=== PATIENT | male | born 1965 | race African-American/Black ===

== ENCOUNTER 2016-11-26 17:35 | Inpatient (IN) ==
--- NOTE | 2016-11-26 20:48 | Hospitalist History & Physical ---
Assessment and Plan - Time spent with patient Time spent with patient: Greater than 30 minutes (1) CHF with left ventricular diastolic dysfunction, NYHA class 2 Status: Acute Assessment and plan: The patient is admitted hospital with hypertensive emergency. He will be restarted on oral regimen and we will use Cardene infusion to control blood pressure presently. We will diurese with intravenous Lasix and obtain nephrology consultation concerning proteinuria. 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 Duvall today with complaint of swelling. The patient has been out of blood pressure medication. The patient usually takes valsartan hydrochlorothiazide. The patient's swelling was moderate to severe, continuous , and worsening. It was associated with shortness of breath and cough. The symptom was not associated with fever, chills, angina, palpitations. A complete 10 system review is obtained all systems not mentioned in history of present illness were negative. The patient is an occasional smoker and was given 4 minutes tobacco cessation advice. The patient was accepted for direct admission after speaking with emergency room physician at [facility]. Medical,Surgical,& Family Hx - Medical History Cardio: History of: CHF, Hypertension - Family History Family History: Reports;: Family Hypertension - Social History Smoking Status: Current some day smoker Have you smoked in the last 12 months: Yes Time spent discussing smoking cessation with patient: 3 to 10 minutes Marital Status: Single Lives With:: Alone Functional capacity: independent ambulation 12 point system: reviewed and no additional remarkable complaints except as stated Exam - Constitutional Exam: Constitutional System: Mild distress. No tremulousness. The patient is disheveled and unkempt. The patient has anasarca. Head: Normocephalic, atraumatic. Ears, Nose and Throat System: No evidence of Otitis or Mastoiditis. No epistaxis or discharge Eyes System: Pupils equal, round, and reactive. Extraocular muscles intact. Neck: Supple, without adenopathy, 1+ jugular venous distention. No thyromegaly , neck mass, or prior surgery apparent. Respiratory System: Chest rales one third up back to auscultation. Cardiovascular System: Heart with regular rate and rhythm. S4 murmur. GI System: Abdomen soft, nontender, protuberant. Normo active bowel sounds present. Musculoskeletal System: limbs with 2+ pedal edema. Full distal pulses. Neurological System: No discernable sensory deficit. No aphasia Psychiatric System: Conversation is rational Results - Labs Lab Results: I have reviewed the past 24 hour labs Labs: Urinalysis obtained at [facility] shows specific gravity 1.010 and urine protein greater than 500. Patient's sodium is 144 potassium 3.9 chloride 107 CO2 of 26 BUN 34, creatinine 4.4. Chest x-ray obtained at [facility] shows cardiomegaly and pulmonary edema.
[2016-11-26] MEDS ORDERED: ZALEPLON 5 MG CAPSULE PO PRN (20:53)
[2016-11-26] MEDS ORDERED: SODIUM CHLORIDE 0.9% 1,000 ML IV SCH (21:00)
[2016-11-26] MEDS: ENOXAPARIN 30 MG/0.3 ML SYRINGE SUBCUT SCH (21:27)
[2016-11-26] MEDS: CARVEDILOL 12.5 MG TABLET PO SCH (21:27)
[2016-11-26] MEDS: niCARdipine INJ 25 MG in SODIUM CHLORIDE 0.9% 240 ML IV SCH (21:27)
[2016-11-26] MEDS: amLODIPine 10 MG TABLET PO SCH (21:27)
[2016-11-26] MEDS: FUROSEMIDE INJ 160 MG in SODIUM CHLORIDE 0.9% 50 ML IV SCH (23:17)
[2016-11-26 23:36] LABS: Apearance,Urine Slightly Hazy (Clear); Bacteria,Urine Occasional /HPF (Few); Bilirubin,Urine Negative (Negative); Blood, Urine Negative (Negative); Glucose,Urine (UA) Negative (Negative); Ketones,Urine Negative (Negative); Mucus,Urine Occasional /LPF (Occasional); Nitrite,Urine Negative (Negative); Protein,Urine 100 MG/DL; RBC,Urine <1 /HPF (0-4); Squamous Epithelial Cell,Urine Occasional /HPF (0-10); Urine Color Straw (Yellow); Urine Specific Gravity 1.005 (1.001-1.035); Urine Urobilinogen < 2.0 EU/DL (0.2-1.0); WBC,Urine 1 /HPF (0-6)
[2016-11-27 04:51] LABS: Basophils # 0.1 10*3/uL (0.0-0.2); Basophils % 0.8 % (0.0-0.8); Eosinophils # 0.2 10*3/uL (0.0-0.87); Eosinophils % 2.1 % (0.00-10.9); Hematocrit 37.5 VOL% (42.0-52.0); Hemoglobin 11.3 GM/DL (14.0-18.0); Immature Granulocytes % 0.4 %; Immature Granulocytes Absolute 0.03 #; Lymphocytes # 1.1 10*3/uL (1.4-4.0); Lymphocytes % 13.9 % (21.2-54.2); Mean Corpuscular HGB Conc 30.1 GM/DL (32-36); Mean Corpuscular Hemoglobin 26 PG (27-34); Mean Corpuscular Volume 85.2 FL (87-102); Mean Platelet Volume 10.8 FL (9.6-12.0); Monocytes # 0.9 10*3/uL (0.11-0.8); Monocytes % 12.2 % (1.7-12.7); Neutrophils # 5.4 10*3/uL (1.4-7.4); Neutrophils % 70.6 % (38.7-73.9); Platelet Count 165 T/CUMM (130-400); White Blood Count 7.7 T/CUMM (4-12)
[2016-11-27 05:24] LABS: Calcium 8.6 MG/DL (8.5-10.1); Magnesium 2.3 MG/DL (1.8-2.4); Potassium 3.7 MMOL/L (3.5-5.1)
[2016-11-27 05:25] LABS: Troponin I Only 0.085 NG/ML (0.00-0.045)
[2016-11-27 05:46] LABS: Risk Ratio 3.79; Thyroid Stimulating Hormone 0.9 uIU/ml (0.358-3.74)
[2016-11-27] MEDS: CARVEDILOL 12.5 MG TABLET PO SCH ×2 (09:20→20:54)
[2016-11-27] MEDS: amLODIPine 10 MG TABLET PO SCH (09:20)
[2016-11-27] MEDS: PANTOPRAZOLE 40 MG TABLET PO SCH (09:20)
[2016-11-27] MEDS: niCARdipine INJ 25 MG in SODIUM CHLORIDE 0.9% 240 ML IV SCH (10:54)
[2016-11-27] MEDS: FUROSEMIDE INJ 160 MG in SODIUM CHLORIDE 0.9% 50 ML IV SCH ×2 (10:54→17:16)
[2016-11-27 11:26] LABS: Collection Time,Urine 12 HOURS
[2016-11-27] MEDS: ALLOPURINOL 100 MG TABLET PO SCH (12:08)
[2016-11-27 12:24] LABS: Total Protein 12 Hr Ur Result 3660 MG/12HR (0-75)
--- NOTE | 2016-11-27 13:09 | Hospitalist Progress Note ---
Assessment and Plan (1) CHF with left ventricular diastolic dysfunction, NYHA class 2 Status: Acute Assessment and plan: The patient is admitted hospital with hypertensive emergency. We will make transition to oral antihypertensive regimen today and titrate medications daily to achieve survival level pressure control. Current Visit: Yes (2) Nephrotic range proteinuria Status: Acute Current Visit: Yes (3) Hypertensive emergency Status: Acute Current Visit: Yes Hospitalist: Subjective Interval history: Mr. Melgar had hypertension through the night which improved on Cardene. We were able to get a list of his home medications which is extensive and shows that he has severe hypertension. The patient has been off blood pressure medications for at least a couple of months and it is prudent to bring the blood pressure into compliance in a stepwise fashion. I am going to discontinue Cardene and began adding progressive doses of oral antihypertensive until the blood pressure is controlled to a survival level. The patient's renal function is marginal and normalizing blood pressure suddenly will jeopardize glomerular filtration rate. The patient feels better after diuresis of 3 L. Follow-up urinalysis shows less proteinuria. Exam - Constitutional Vitals: Period Temp Pulse Resp BP Sys/Potter Pulse Ox Last 24 Hr 98.0 F-98.9 F 62-76 20-22 124-200/56-110 94-98 Exam: Constitutional System: Minimal distress. No tremulousness. The patient is disheveled and unkempt. The patient has less swelling. Head: Normocephalic, atraumatic. Ears, Nose and Throat System: No evidence of Otitis or Mastoiditis. No epistaxis or discharge Eyes System: Pupils equal, round, and reactive. Extraocular muscles intact. Neck: Supple, without adenopathy, 1+ jugular venous distention. No thyromegaly , neck mass, or prior surgery apparent. Respiratory System: Chest rales in bases to auscultation. Cardiovascular System: Heart with regular rate and rhythm. S4 murmur. GI System: Abdomen soft, nontender, protuberant. Normo active bowel sounds present. Musculoskeletal System: limbs with 1 + pedal edema. Full distal pulses. Neurological System: No discernable sensory deficit. No aphasia Psychiatric System: Conversation is rational Results - Labs CBC & BMP: 11/27/16 04:31 11/27/16 04:31 Lab Results: I have reviewed the past 24 hour labs
--- NOTE | 2016-11-27 14:36 | Nephrology Consult Note ---
History of Present Illness Chief complaint: Increased BUN and creatinine History of present illness: Mr. Melgar is a 51 year old male admitted for swelling and shortness of breath. The patient states he developed a cold a few weeks ago and was taking a lot of [place] and cold medicines and during this time began to retain a lot of fluid and swell. The patient has had some shortness of breath associated with this. He is also had a cough productive of yellowish sputum. The patient reports paroxysmal nocturnal dyspnea however he states he has had this for years. The patient states he had been in the hospital a few years ago with similar symptoms and fluid retention. Since being in the hospital the patient has been getting IV Lasix and he states his legs have gone down in their amount of swelling since admission. We were asked see the patient for proteinuria and increased BUN and creatinine. The patient states he has been told of kidney failure problems in the past by his local doctor and reports having seen a kidney doctor a few years ago as well. Indeed the patient was seen about [address] Galvez and about 4 years ago the patient had a creatinine of around 2.3 mg/dL done in our office. ROS: Head - denies headaches ENT - denies sore throat Lymphatics - denies lymphadenopathy Hematology - denies bleeding problems Heart - denies chest pain Lungs -positive shortness of breath Abdomen - denies abdominal pain Musculoskeletal - denies arthritis Skin -complains of some rash on his right leg Neurology - denies stroke General - denies fever PE: General: in no acute distress Eyes: Pupils are round and reactive, conjunctivae are clear ENT: Nose is clear, O/P is benign Neck: Supple, no thyromegaly Lymphatics: No cervical, supraclavicular or axillary adenopathy Heart: Regular rate and rhythm, 2+ pretibial edema Lungs: Clear to auscultation anteriorly, chest expansion symmetric Abdomen: Soft, normoactive bowel sounds, no hepatomegaly Musculoskeletal: No joint erythema or effusions or joint asymmetry Skin: Normal turgor, normal hydration, no rash Neuro/Psych: Alert and cooperative with fair insight Home Medications Medication Instructions Recorded Confirmed Type Allopurinol 100 mg PO DAILY 11/27/16 11/27/16 History Furosemide Tab [Lasix Tab] 80 mg PO DAILY 11/27/16 11/27/16 History Metoprolol Succinate Xl [Toprol Xl] 200 mg PO DAILY 11/27/16 11/27/16 History Potassium Chloride Cap/Tab [K Dur] 20 meq PO DAILY 11/27/16 11/27/16 History Valsartan [Diovan] 320 mg PO DAILY 11/27/16 11/27/16 History cloNIDine TAB [Catapres Tab] 0.3 mg PO TID 11/27/16 11/27/16 History dilTIAZem HCl [Cardizem LA] 180 mg PO DAILY 11/27/16 11/27/16 History hydrALAZINE TAB [Apresoline Tab] 100 mg PO TID 11/27/16 11/27/16 History Allergies Allergy/AdvReac Type Severity Reaction Status Date / Time No Known Allergies Allergy Verified 11/26/16 21:11 Medical,Surgical,& Family Hx - Medical History Cardio: History of: CHF, Hypertension No history of: Aneurysm, Cardiac Dysrhythmia, Cerebrovascular Disease, Congenital Heart Disease, CAD, MA, Pacemaker, PVD, Valvular Heart Disease Neurology: No history of: Brain Aneurysm, Cerebral Hemorrhage, Cerebrovascular Accident , Cerebral Palsy, Dementia, Migraine, Multiple Sclerosis, Parkinson's Disease, Peripheral Neuropathy, Seizures, TIA, Vertigo, Neurologocal Cancer Endocrine: No history of: Dyslipidemia Respiratory: No history of: Asthma, Bronchitis, COPD, Intubation, Pulmonary Embolism, Pneumonia, Lung Cancer Gastrointestinal: No history of: Bowel Obstruction, Clostridium Difficile, Crohn's Disease, Diverticulitis/ Diverticulosis, Esophageal Varices, GERD, Gastrointestinal Bleed , Hemorrhoids, Hematochezia, Hepatitis, Liver Problems, Pancreatitis, Polyps, Ulcerative Colitis, Gastrointestinal Cancer, GI Problems - Surgical History Cardiac Surgeries: Patient Denies: Femoral-Popliteal Bypass Graft, Cardiac Catheterization, Cardiac Surgery, Carotid Endarterectomy, Internal Defibrillator Thoracic Surgeries: Patient denies;: Lobectomy Neurologic Surgeries: Patient denies: Brain Aneurysm, Cerebral Hemorrhage, Neurologic Surgery HEENT Surgeries: Patient denies: Carotid Endarterectomy Abdominal Surgeries: Patient denies: Abdominal Surgery, Appendectomy, Cholecystectomy, Colonoscopy , Gastric Bypass Surgery, EGD, Hernia Repair, Splenectomy - Family History Family History: Reports;: Family Diabetes, Family Hypertension Additional Family History: His father was on dialysis - Social History Smoking Status: Never smoker Frequency of Alcohol Use: None Exam - Vital Signs Vital signs: Period Temp Pulse Resp BP Sys/Potter Pulse Ox Last 24 Hr 98.0 F-98.9 F 62-76 20-22 124-200/56-110 94-98 Results - Labs CBC & BMP: 11/27/16 04:31 11/27/16 04:31 Assessment and Plan (1) Hypertension Status: Acute Current Visit: Yes (2) Chronic kidney disease, stage IV (severe) Status: Acute Assessment and plan: I suspect this patient has chronic kidney disease related to long-standing hypertension, patient's creatinine about 4 years ago was 2.3 mg/dL it is now 4.7 mg/dL we will continue to monitor this. We will check a urinalysis and a spot urine albumin to creatinine ratio. Current Visit: Yes (3) Volume overload Status: Acute Assessment and plan: I agree with the diuretic regimen he is presently on Current Visit: Yes (4) Obesity Status: Acute Current Visit: Yes (5) Proteinuria Status: Acute Current Visit: Yes
--- NOTE | 2016-11-27 16:13 | ECHO Report ---
Jose Melgar Exam Date: 11/27/2016 13:32 Referring Physician: Technologist: Age: 51 Ht (in): 65 Wt (lb): 306 Gender: M Exam Location: [facility] Echo Indications: CHF, HTN, resp. distress BP: 157 / 83 HR: 71 Rhythm: Sinus Technical Quality: IMPRESSIONS 1-2+ left atrial enlargement with borderline right ventricular enlargement 2-3+ concentric LVH Normal LV systolic function with ejection fraction estimated to be 65% without segmental wall motion abnormality 1+ aortic stenosis (peak gradient 23 mmHg), with 1+ aortic regurgitation 1+ mitral and 2+ tricuspid regurgitation with RVSP 46 mmHg plus RAP MEASUREMENTS (Male / Female) Normal Values 2D ECHO LV Diastolic Diameter PLAX 4.0 cm 4.2 - 5.9 / 3.9 - 5.3 cm LV Systolic Diameter PLAX 2.0 cm LV Fractional Shortening PLAX 50.2 % IVS Diastolic Thickness 1.6 cm 0.6 - 1.0 / 0.6 - 0.9 cm LVPW Diastolic Thickness 1.6 cm 0.6 - 1.0 / 0.6 - 0.9 cm Aortic Root Diameter 2.5 cm LA Systolic Diameter LX 4.7 cm 3.0 - 4.0 / 2.7 - 3.8 cm DOPPLER TR Peak Velocity 339.0 cm/s TR Peak Gradient 46.0 mmHg FINDINGS Left Ventricle Moderately increased septal wall thickness. Moderate concentric left ventricular hypertrophy with diastolic dysfunction. Left ventricular ejection fraction is estimated at 55-60 %. Right Ventricle Mild - moderately increased right ventricular size. Right Atrium The right atrium is mild - moderately enlarged. Left Atrium Moderately increased left atrial diameter. Mitral Valve Mildly thickened mitral valve with mild mitral regurgitation. Aortic Valve Mild aortic valve sclerosis without stenosis. Trace aortic valve regurgitation. Tricuspid Valve Morphologically normal tricuspid valve. Trace to mild tricuspid valve regurgitation. Tricuspid regurgitation velocities suggest a PAP of 46.0 mmHg + RAP. Pulmonic Valve Morphologically normal pulmonic valve. Pericardium No pericardial effusion. Aorta Normal size aortic root and proximal ascending aorta. Henrique Quinones (Electronically Signed) Final Date: 27 November 2016 16:12
[2016-11-27] MEDS: hydrALAZINE 10 MG TABLET PO PRN (20:54)
[2016-11-27] MEDS: ENOXAPARIN 30 MG/0.3 ML SYRINGE SUBCUT SCH (20:55)
[2016-11-28] MEDS: hydrALAZINE 10 MG TABLET PO PRN ×2 (04:05→17:11)
[2016-11-28 05:28] LABS: Calcium 8.3 MG/DL (8.5-10.1); Magnesium 2.3 MG/DL (1.8-2.4); Osmolality,Calculated 289.3 MOS/KG (273-304); Potassium 3.4 MMOL/L (3.5-5.1)
[2016-11-28] MEDS: CARVEDILOL 25 MG TABLET PO SCH ×2 (08:22→20:31)
[2016-11-28] MEDS: VALSARTAN 160 MG TABLET PO SCH (08:22)
[2016-11-28] MEDS: PANTOPRAZOLE 40 MG TABLET PO SCH (08:23)
[2016-11-28] MEDS: FUROSEMIDE INJ 160 MG in SODIUM CHLORIDE 0.9% 50 ML IV SCH ×3 (08:23→20:31)
[2016-11-28] MEDS: amLODIPine 10 MG TABLET PO SCH (08:23)
[2016-11-28] MEDS: ALLOPURINOL 100 MG TABLET PO SCH (08:23)
--- NOTE | 2016-11-28 10:14 | Nephrology Progress Note ---
Nephrology - PN: Subj Interval history: Patient denies shortness of breath. Review of systems GI denies nausea or vomiting Physical exam general the patient chronically ill-appearing, he continues with 2 + pretibial edema Assessment/plan 1. Chronic kidney disease stage IV-patient's creatinine is stable at 4.6 mg/dL 2. Hypertension-we will continue as needed Procardia and his present antihypertensive regimen 3. Volume overload-I am going to increase his Lasix to 160 3 times daily 4. Proteinuria will follow up a spot urine microalbumin to creatinine ratio Exam (PN)-Nephrology - Vital Signs Vital signs: Period Temp Pulse Resp BP Sys/Potter Pulse Ox Last 24 Hr 98.0 F-98.9 F 70-76 18-22 164-227/91-130 91-98 - Lab 11/27/16 04:31 11/28/16 04:07 Most recent lab results Calcium 8.3 MG/DL (8.5-10.1) L 11/28/16 04:07 Magnesium 2.3 MG/DL (1.8-2.4) 11/28/16 04:07 Assessment and Plan (1) Hypertension Status: Acute Current Visit: Yes (2) Chronic kidney disease, stage IV (severe) Status: Acute Assessment and plan: I suspect this patient has chronic kidney disease related to long-standing hypertension, patient's creatinine about 4 years ago was 2.3 mg/dL it is now 4.7 mg/dL we will continue to monitor this. We will check a urinalysis and a spot urine albumin to creatinine ratio. Current Visit: Yes (3) Volume overload Status: Acute Assessment and plan: I agree with the diuretic regimen he is presently on Current Visit: Yes (4) Obesity Status: Acute Current Visit: Yes (5) Proteinuria Status: Acute Current Visit: Yes
[2016-11-28] MEDS: NIFEdipine 10 MG CAPSULE PO PRN ×2 (11:18→20:31)
--- NOTE | 2016-11-28 11:39 | Hospitalist Progress Note ---
Assessment and Plan (1) CHF with left ventricular diastolic dysfunction, NYHA class 2 Status: Acute Assessment and plan: The patient is admitted hospital with hypertensive emergency. I am going to continue with oral medications adding valsartan and hydralazine today. Dr. Ingram increase the Lasix dose as well. Will recheck kidney function tomorrow. Current Visit: Yes (2) Nephrotic range proteinuria Status: Acute Current Visit: Yes (3) Hypertensive emergency Status: Acute Current Visit: Yes Hospitalist: Subjective Interval history: Mr. Melgar has less shortness of breath each day. Swelling of lower extremities is improving. Blood pressure is still elevated at 227/114. The patient has no angina. Exam - Constitutional Vitals: Period Temp Pulse Resp BP Sys/Potter Pulse Ox Last 24 Hr 98.0 F-98.9 F 70-76 18-22 164-227/91-130 91-98 Exam: Constitutional System: Minimal distress. No tremulousness. The patient is disheveled and unkempt. The patient has less swelling. Head: Normocephalic, atraumatic. Ears, Nose and Throat System: No evidence of Otitis or Mastoiditis. No epistaxis or discharge Eyes System: Pupils equal, round, and reactive. Extraocular muscles intact. Neck: Supple, without adenopathy, 1+ jugular venous distention. No thyromegaly , neck mass, or prior surgery apparent. Respiratory System: Chest rales in bases to auscultation. Cardiovascular System: Heart with regular rate and rhythm. S4 murmur. GI System: Abdomen soft, nontender, protuberant. Normo active bowel sounds present. Musculoskeletal System: limbs with 1 + pedal edema. Full distal pulses. Neurological System: No discernable sensory deficit. No aphasia Psychiatric System: Conversation is rational Results - Labs CBC & BMP: 11/27/16 04:31 11/28/16 04:07 Lab Results: I have reviewed the past 24 hour labs
[2016-11-28 18:30] LABS: Apearance,Urine CLEAR (Clear); Bilirubin,Urine Negative (Negative); Blood, Urine Small mg/dL (Negative); Glucose,Urine (UA) Negative (Negative); Ketones,Urine Negative (Negative); Mucus,Urine Occasional /LPF (Occasional); Nitrite,Urine Negative (Negative); Protein,Urine 100 MG/DL; RBC,Urine 1 /HPF (0-4); Urine Color Straw (Yellow); Urine Specific Gravity 1.005 (1.001-1.035); Urine Urobilinogen < 2.0 EU/DL (0.2-1.0); WBC,Urine <1 /HPF (0-6)
[2016-11-28] MEDS: POTASSIUM CHLORIDE 20 MEQ TABLET PO SCH (20:30)
[2016-11-28] MEDS: ENOXAPARIN 30 MG/0.3 ML SYRINGE SUBCUT SCH (20:47)
[2016-11-28] MEDS: niCARdipine INJ 25 MG in SODIUM CHLORIDE 0.9% 240 ML IV SCH (23:48)
[2016-11-29] MEDS: niCARdipine INJ 25 MG in SODIUM CHLORIDE 0.9% 240 ML IV SCH (04:45)
[2016-11-29 05:01] LABS: Calcium 8.1 MG/DL (8.5-10.1); Magnesium 2.3 MG/DL (1.8-2.4); Osmolality,Calculated 291.3 MOS/KG (273-304); Potassium 3.1 MMOL/L (3.5-5.1)
[2016-11-29] MEDS ORDERED: guaiFENesin 200 MG/10 ML UDCUP PO PRN (05:03)
[2016-11-29] MEDS: POTASSIUM CHLORIDE 20 MEQ TABLET PO SCH ×5 (08:06→20:59)
[2016-11-29] MEDS: MINOXIDIL 2.5 MG TABLET PO SCH (09:02)
[2016-11-29] MEDS: PANTOPRAZOLE 40 MG TABLET PO SCH (09:02)
[2016-11-29] MEDS: ALLOPURINOL 100 MG TABLET PO SCH (09:03)
[2016-11-29] MEDS: VALSARTAN 160 MG TABLET PO SCH (09:04)
[2016-11-29] MEDS: CARVEDILOL 25 MG TABLET PO SCH ×2 (09:04→20:59)
[2016-11-29] MEDS: amLODIPine 10 MG TABLET PO SCH (09:04)
[2016-11-29] MEDS: FUROSEMIDE INJ 160 MG in SODIUM CHLORIDE 0.9% 50 ML IV SCH ×3 (09:06→21:00)
--- NOTE | 2016-11-29 10:01 | Nephrology Progress Note ---
Nephrology - PN: Subj Interval history: Patient states he slept better last night that he has not some time. He was able to lay flatter than he usually does. Review of systems-musculoskeletal: Patient reports ambulating better than he has been sometime since getting some of the fluid off during this hospitalization. Physical exam general the patient is chronically ill-appearing, he has 2+ pretibial edema, however his legs do seem to little bit softer today. Assessment/plan 1. Volume overload-patient is responding well to the Lasix 2. Hypertension-patient's been started on minoxidil, I am going to give him a as needed of IV labetalol, I wonder if this patient has some bowel wall edema that is impairing his ability to absorb some of his medications resulting in some rebound hypertension related to lack of beta blockade 3. Chronic kidney disease stage IV-this patient's creatinine is remaining stable around 4.6 mg/dL, 4 years ago he had a creatinine of 2.4 mg/dL, he does have a significant amount of proteinuria as reflected by spot albumin to creatinine ratio equivalent to about 5 g of albumin leakage per day however with his prolonged course of kidney disease and bland urinary sediment I am disinclined to investigate or treat aggressively at this time. I may revisit this down the road as the patient improves. Patient was discussed with Dr. Tsang today. Exam (PN)-Nephrology - Vital Signs Vital signs: Period Temp Pulse Resp BP Sys/Potter Pulse Ox Last 24 Hr 97.3 F-98.4 F 74-84 18-20 160-230/79-140 92-97 - Lab 11/27/16 04:31 11/29/16 03:29 Most recent lab results Calcium 8.1 MG/DL (8.5-10.1) L 11/29/16 03:29 Magnesium 2.3 MG/DL (1.8-2.4) 11/29/16 03:29 Assessment and Plan (1) Hypertension Status: Acute Current Visit: Yes (2) Chronic kidney disease, stage IV (severe) Status: Acute Assessment and plan: I suspect this patient has chronic kidney disease related to long-standing hypertension, patient's creatinine about 4 years ago was 2.3 mg/dL it is now 4.7 mg/dL we will continue to monitor this. We will check a urinalysis and a spot urine albumin to creatinine ratio. Current Visit: Yes (3) Volume overload Status: Acute Assessment and plan: I agree with the diuretic regimen he is presently on Current Visit: Yes (4) Obesity Status: Acute Current Visit: Yes (5) Proteinuria Status: Acute Current Visit: Yes
--- NOTE | 2016-11-29 11:09 | Hospitalist Progress Note ---
Assessment and Plan (1) CHF with left ventricular diastolic dysfunction, NYHA class 2 Status: Acute Assessment and plan: The patient is admitted hospital with hypertensive emergency. I am going to continue with oral medications adding Loniten today and reducing the oral hydralazine dose. Dr. Ingram increase the Lasix dose as well. Will recheck kidney function tomorrow. The patient has 6 grams of protein per 24 hours urinary loss. Current Visit: Yes (2) Nephrotic range proteinuria Status: Acute Current Visit: Yes (3) Hypertensive emergency Status: Acute Current Visit: Yes Hospitalist: Subjective Interval history: Mr. Melagr has a little less swelling each day. Blood pressure control is still marginal and I discussed medication changes with Dr. Ingram today we coordinated care. The patient does not complain of shortness of breath or angina today. Exam - Constitutional Vitals: Period Temp Pulse Resp BP Sys/Potter Pulse Ox Last 24 Hr 97.3 F-98.4 F 74-84 18-20 160-230/79-140 92-97 Exam: Constitutional System: Minimal distress. No tremulousness. The patient is disheveled and unkempt. The patient has less swelling. Head: Normocephalic, atraumatic. Ears, Nose and Throat System: No evidence of Otitis or Mastoiditis. No epistaxis or discharge Eyes System: Pupils equal, round, and reactive. Extraocular muscles intact. Neck: Supple, without adenopathy, 1+ jugular venous distention. No thyromegaly , neck mass, or prior surgery apparent. Respiratory System: Chest rales in bases to auscultation. Cardiovascular System: Heart with regular rate and rhythm. S4 murmur. GI System: Abdomen soft, nontender, protuberant. Normo active bowel sounds present. Musculoskeletal System: limbs with 1 + pedal edema. Full distal pulses. Neurological System: No discernable sensory deficit. No aphasia Psychiatric System: Conversation is rational Results - Labs CBC & BMP: 11/27/16 04:31 11/29/16 03:29 Lab Results: I have reviewed the past 24 hour labs
[2016-11-29] MEDS: LABETALOL 20 MG/4 ML SYRINGE IV PRN ×2 (11:14→18:14)
[2016-11-29] MEDS ORDERED: LABETALOL 20 MG/4 ML SYRINGE IV SCH (12:00)
[2016-11-29] MEDS: hydrALAZINE 10 MG TABLET PO PRN (16:29)
[2016-11-29] MEDS: ENOXAPARIN 30 MG/0.3 ML SYRINGE SUBCUT SCH (21:01)
[2016-11-30] MEDS: LABETALOL 20 MG/4 ML SYRINGE IV PRN (00:19)
[2016-11-30 05:45] LABS: Calcium 8.1 MG/DL (8.5-10.1); Magnesium 2.2 MG/DL (1.8-2.4); Osmolality,Calculated 288.5 MOS/KG (273-304); Potassium 3.4 MMOL/L (3.5-5.1)
[2016-11-30] MEDS: MINOXIDIL 2.5 MG TABLET PO SCH (08:41)
[2016-11-30] MEDS: VALSARTAN 160 MG TABLET PO SCH (08:41)
[2016-11-30] MEDS: POTASSIUM CHLORIDE 20 MEQ TABLET PO SCH ×2 (08:42→20:35)
[2016-11-30] MEDS: CARVEDILOL 25 MG TABLET PO SCH ×2 (08:42→20:36)
[2016-11-30] MEDS: ALLOPURINOL 100 MG TABLET PO SCH (08:42)
[2016-11-30] MEDS: PANTOPRAZOLE 40 MG TABLET PO SCH (08:42)
[2016-11-30] MEDS: amLODIPine 10 MG TABLET PO SCH (08:44)
[2016-11-30] MEDS: FUROSEMIDE INJ 160 MG in SODIUM CHLORIDE 0.9% 50 ML IV SCH ×3 (09:58→20:34)
[2016-11-30] MEDS: NIFEdipine 10 MG CAPSULE PO PRN (11:05)
--- NOTE | 2016-11-30 13:57 | Nephrology Progress Note ---
Nephrology - PN: Subj Interval history: Patient reports breathing better. Review of systems GI denies nausea vomiting Physical exam general the patient's in no acute distress, he has 2+ pretibial edema Assessment/plan 1. Chronic kidney disease stage IV-patient's creatinine stable at 4.6 mg/dL 2. Hypertension-patient's blood pressure seems to be trending down some with the addition of minoxidil and IV labetalol 3. Proteinuria-patient has about 5-6 g protein leakage per day, he is on angiotensin receptor hedy presently. Exam (PN)-Nephrology - Vital Signs Vital signs: Period Temp Pulse Resp BP Sys/Potter Pulse Ox Last 24 Hr 97.6 F-99.7 F 75-82 18-20 145-218/96-125 94-95 - Lab 11/27/16 04:31 11/30/16 04:14 Most recent lab results Calcium 8.1 MG/DL (8.5-10.1) L 11/30/16 04:14 Magnesium 2.2 MG/DL (1.8-2.4) 11/30/16 04:14 Assessment and Plan (1) Hypertension Status: Acute Current Visit: Yes (2) Chronic kidney disease, stage IV (severe) Status: Acute Assessment and plan: I suspect this patient has chronic kidney disease related to long-standing hypertension, patient's creatinine about 4 years ago was 2.3 mg/dL it is now 4.7 mg/dL we will continue to monitor this. We will check a urinalysis and a spot urine albumin to creatinine ratio. Current Visit: Yes (3) Volume overload Status: Acute Assessment and plan: I agree with the diuretic regimen he is presently on Current Visit: Yes (4) Obesity Status: Acute Current Visit: Yes (5) Proteinuria Status: Acute Current Visit: Yes
--- NOTE | 2016-11-30 15:15 | Hospitalist Progress Note ---
Assessment and Plan (1) Nephrotic range proteinuria Status: Acute Assessment and plan: Continue Lasix. Dr. Ingram's notes were reviewed and his help is appreciated. Current Visit: Yes (2) CHF with left ventricular diastolic dysfunction, NYHA class 2 Status: Acute Assessment and plan: Echo report shows : 1-2+ left atrial enlargement with borderline right ventricular enlargement 2-3+ concentric LVH Normal LV systolic function with ejection fraction estimated to be 65% without segmental wall motion abnormality 1+ aortic stenosis (peak gradient 23 mmHg), with 1+ aortic regurgitation 1+ mitral and 2+ tricuspid regurgitation with RVSP 46 mmHg plus RAP Current Visit: Yes (3) Hypertension Status: Chronic Assessment and plan: Medications adjusted. Nephrology following. Continue Lasix. Current Visit: Yes Qualifiers: Hypertension type: essential hypertension Qualified Code(s): I10 - Essential (primary) hypertension (4) Chronic kidney disease, stage IV (severe) Status: Acute Current Visit: Yes (5) Volume overload Status: Acute Assessment and plan: Due to kidney disease. Current Visit: Yes Qualifiers: Hypervolemia type: other Qualified Code(s): E87.79 - Other fluid overload (6) Obesity Status: Chronic Current Visit: Yes Qualifiers: Obesity type: due to excess calories (7) Proteinuria Status: Acute Current Visit: Yes Hospitalist: Subjective Interval history: Patient seen and examined. No acute events overnight. Case discussed with nursing staff. Labs reviewed. He reports significant improvement in his breathing. He is excited about being able to lay down in bed. He is still very swollen and his blood pressure is not well controlled. Exam - Constitutional Vitals: Period Temp Pulse Resp BP Sys/Potter Pulse Ox Last 24 Hr 97.6 F-99.7 F 75-82 18-20 145-218/96-125 94-95 Exam: Constitutional System: No distress. No tremulousness. Head: Normocephalic, atraumatic. Ears, Nose and Throat System: No pain or tenderness. No epistaxis or discharge Eyes System: Pupils equal, round, and reactive. Extraocular muscles intact. Neck: Supple, without adenopathy, No jugular venous distention. No thyromegaly, neck mass, or prior surgery apparent. Respiratory System: Chest clear to auscultation. Cardiovascular System: Heart with regular rate and rhythm. No murmur. GI System: Abdomen soft, nontender. Normo active bowel sounds present. Musculoskeletal System: limbs with bilateral pitting pedal edema. Full distal pulses. Normal capillary refill. Neurological System: No discernable sensory deficit. No aphasia Psychiatric System: Conversation is rational Results - Labs CBC & BMP: 11/27/16 04:31 11/30/16 04:14 Lab Results: I have reviewed the past 24 hour labs
[2016-11-30] MEDS ORDERED: cloNIDine 0.3 MG/24 HR PATCH TRANSDERM SCH (15:30)
[2016-11-30] MEDS: hydrALAZINE 20 MG/1 ML VIAL IV PRN (16:48)
[2016-11-30] MEDS: LABETALOL 20 MG/4 ML SYRINGE IV SCH ×2 (18:00→22:27)
[2016-11-30] MEDS: ENOXAPARIN 30 MG/0.3 ML SYRINGE SUBCUT SCH (20:36)
[2016-12-01] MEDS: LABETALOL 20 MG/4 ML SYRINGE IV SCH ×4 (02:47→13:37)
[2016-12-01 05:14] LABS: Basophils % 0.4 % (0.0-0.8); Eosinophils # 0.2 10*3/uL (0.0-0.87); Eosinophils % 4.2 % (0.00-10.9); Hematocrit 38.1 VOL% (42.0-52.0); Hemoglobin 11.8 GM/DL (14.0-18.0); Immature Granulocytes % 0.4 %; Immature Granulocytes Absolute 0.02 #; Lymphocytes # 0.9 10*3/uL (1.4-4.0); Lymphocytes % 16.6 % (21.2-54.2); Mean Corpuscular Hemoglobin 25 PG (27-34); Mean Corpuscular Volume 81.6 FL (87-102); Mean Platelet Volume 11.2 FL (9.6-12.0); Monocytes % 18.9 % (1.7-12.7); Neutrophils # 3.1 10*3/uL (1.4-7.4); Neutrophils % 59.5 % (38.7-73.9); Platelet Count 140 T/CUMM (130-400); Red Blood Count 4.67 MC/CUMM (3.8-5.5); Red Cell Distribution Width 15.3 % (9.3-17.3); White Blood Count 5.2 T/CUMM (4-12)
[2016-12-01 05:57] LABS: Anisocytosis Slight; Band Neutrophils 2 % (0-10); Eosinophils 7 % (0-10); Lymphocytes 15 % (20-55); Microcytosis Slight; Platelet Estimate Decreased; Segmented Neutrophils 59 % (50-85); Total Cells Counted 100
--- NOTE | 2016-12-01 07:01 | Nephrology Progress Note ---
Nephrology - PN: Subj Interval history: Patient reports breathing okay. Review of systems GI denies nausea or vomiting , musculoskeletal-the patient is ambulating better Physical exam general the patient's in no acute distress, he continues with 2+ pretibial edema however his legs are much less tight than they had been, patient 's weight is down about 6-7 EKGs from admission Assessment/plan 1. Proteinuria-this patient has long-standing kidney disease, his degree of proteinuria is a little bit raised from what one would expect from hypertensive nephrosclerosis, he may have a membranous nephropathy however with his duration of chronic kidney disease I am not sure that subjecting him to steroids and immunosuppressive's would be a major benefit at this time I think the best thing is to continue angiotensin receptor blockade at this time, I will also add Aldactone as this may help decrease his protein leakage as well as improve his blood pressure control 2. Hypertension-patient was placed on a clonidine patch yesterday his hydralazine was increased and his labetalol IV is being given as a scheduled dose, I think these are all reasonable measures, I am going to add Aldactone to his regimen this may help as well. 3. Chronic kidney disease stage IV 4. Volume overload-this is improving 5. Valvular heart disease with pulmonary hypertension. Exam (PN)-Nephrology - Vital Signs Vital signs: Period Temp Pulse Resp BP Sys/Potter Pulse Ox Last 24 Hr 97.6 F-98.9 F 75-82 18-20 163-190/77-103 95-96 - Lab 12/01/16 03:54 11/30/16 04:14 Most recent lab results Calcium 8.1 MG/DL (8.5-10.1) L 11/30/16 04:14 Magnesium 2.2 MG/DL (1.8-2.4) 11/30/16 04:14 Assessment and Plan (1) Hypertension Status: Chronic Current Visit: Yes Qualifiers: Hypertension type: essential hypertension Qualified Code(s): I10 - Essential (primary) hypertension (2) Chronic kidney disease, stage IV (severe) Status: Acute Assessment and plan: I suspect this patient has chronic kidney disease related to long-standing hypertension, patient's creatinine about 4 years ago was 2.3 mg/dL it is now 4.7 mg/dL we will continue to monitor this. We will check a urinalysis and a spot urine albumin to creatinine ratio. Current Visit: Yes (3) Volume overload Status: Acute Assessment and plan: I agree with the diuretic regimen he is presently on Current Visit: Yes Qualifiers: Hypervolemia type: other Qualified Code(s): E87.79 - Other fluid overload (4) Obesity Status: Chronic Current Visit: Yes Qualifiers: Obesity type: due to excess calories (5) Proteinuria Status: Acute Current Visit: Yes
[2016-12-01] MEDS: POTASSIUM CHLORIDE 20 MEQ TABLET PO SCH ×2 (08:41→20:30)
[2016-12-01] MEDS: ALLOPURINOL 100 MG TABLET PO SCH (08:41)
[2016-12-01] MEDS: SPIRONOLACTONE 25 MG TABLET PO SCH ×2 (08:42→20:31)
[2016-12-01] MEDS: FUROSEMIDE INJ 160 MG in SODIUM CHLORIDE 0.9% 50 ML IV SCH ×3 (08:42→20:31)
[2016-12-01] MEDS: MINOXIDIL 2.5 MG TABLET PO SCH (08:42)
[2016-12-01] MEDS: VALSARTAN 160 MG TABLET PO SCH (08:42)
[2016-12-01] MEDS: PANTOPRAZOLE 40 MG TABLET PO SCH (08:42)
[2016-12-01] MEDS: amLODIPine 10 MG TABLET PO SCH (08:42)
[2016-12-01] MEDS: CARVEDILOL 25 MG TABLET PO SCH ×2 (08:42→20:30)
[2016-12-01] MEDS ORDERED: LABETALOL 20 MG/4 ML SYRINGE IV PRN (13:47)
--- NOTE | 2016-12-01 13:48 | Hospitalist Progress Note ---
Assessment and Plan (1) Nephrotic range proteinuria Status: Acute Assessment and plan: Continue Lasix. Dr. Ingram's notes were reviewed and his help is appreciated. Current Visit: Yes (2) CHF with left ventricular diastolic dysfunction, NYHA class 2 Status: Acute Assessment and plan: Echo report shows : 1-2+ left atrial enlargement with borderline right ventricular enlargement 2-3+ concentric LVH Normal LV systolic function with ejection fraction estimated to be 65% without segmental wall motion abnormality 1+ aortic stenosis (peak gradient 23 mmHg), with 1+ aortic regurgitation 1+ mitral and 2+ tricuspid regurgitation with RVSP 46 mmHg plus RAP Current Visit: Yes (3) Hypertension Status: Chronic Assessment and plan: Medications adjusted. Nephrology following. Continue Lasix. Aldactone added. Medications adjusted Current Visit: Yes Qualifiers: Hypertension type: essential hypertension Qualified Code(s): I10 - Essential (primary) hypertension (4) Chronic kidney disease, stage IV (severe) Status: Acute Current Visit: Yes (5) Volume overload Status: Acute Assessment and plan: Due to kidney disease. Current Visit: Yes Qualifiers: Hypervolemia type: other Qualified Code(s): E87.79 - Other fluid overload (6) Obesity Status: Chronic Current Visit: Yes Qualifiers: Obesity type: due to excess calories (7) Proteinuria Status: Acute Current Visit: Yes Hospitalist: Subjective Interval history: Patient seen and examined. No acute events overnight. Case discussed with nursing staff. Labs reviewed. Improved blood pressure with medication changes Exam - Constitutional Vitals: Period Temp Pulse Resp BP Sys/Potter Pulse Ox Last 24 Hr 97.6 F-98.9 F 76-80 18-20 145-190/77-103 95-98 Exam: Constitutional System: No distress. No tremulousness. Head: Normocephalic, atraumatic. Ears, Nose and Throat System: No pain or tenderness. No epistaxis or discharge Eyes System: Pupils equal, round, and reactive. Extraocular muscles intact. Neck: Supple, without adenopathy, No jugular venous distention. No thyromegaly, neck mass, or prior surgery apparent. Respiratory System: Chest clear to auscultation. Cardiovascular System: Heart with regular rate and rhythm. No murmur. GI System: Abdomen soft, nontender. Normo active bowel sounds present. Musculoskeletal System: limbs with bilateral pitting pedal edema. Full distal pulses. Normal capillary refill. Neurological System: No discernable sensory deficit. No aphasia Psychiatric System: Conversation is rational Results - Labs CBC & BMP: 12/01/16 03:54 11/30/16 04:14 Lab Results: I have reviewed the past 24 hour labs
[2016-12-01] MEDS: ENOXAPARIN 30 MG/0.3 ML SYRINGE SUBCUT SCH (20:32)
[2016-12-02] MEDS: hydrALAZINE 20 MG/1 ML VIAL IV PRN (05:36)
[2016-12-02 06:24] LABS: Albumin 2.8 G/DL (3.4-5.0); Calcium 7.9 MG/DL (8.5-10.1); Osmolality,Calculated 287.7 MOS/KG (273-304); Phosphorous 4.4 MG/DL (2.5-4.9); Potassium 3.5 MMOL/L (3.5-5.1)
--- NOTE | 2016-12-02 07:54 | Nephrology Progress Note ---
Nephrology - PN: Subj Interval history: Patient states he continues to breathe better. Review of systems GI denies nausea or vomiting Physical exam general he has 2+ pretibial edema Assessment/plan 1. Chronic kidney disease stage IV-patient's creatinine is increased to 4.9 mg/dL, I spoke to the patient about a kidney biopsy I told him that with his kidney failure being present so long I did not think his element would be responsive to more aggressive therapy with immunosuppressive medicines and steroids and that I would recommend foregoing a biopsy and continuing medical management as we are doing. He agreed with this plan. At this time I would continue her present therapy despite the slight increase in his creatinine 2. Volume overload-patient's lost about 10 kg since admission, his symptoms are improved. At this point I think we could consider discharging him home. I would send him out on Lasix 160 mg twice daily or torsemide 100 mg p.o. daily along with metolazone 5 mg daily. 3. Proteinuria 4. Hypertension-patient's blood pressure is improved 5. Hypokalemia-patient's potassium is improved to 3.5 It patient is discharged plan on seeing him back in the office in about 2 weeks Exam (PN)-Nephrology - Vital Signs Vital signs: Period Temp Pulse Resp BP Sys/Potter Pulse Ox Last 24 Hr 97.6 F-99.2 F 77-81 18-20 145-181/78-93 92-98 - Lab 12/01/16 03:54 12/02/16 05:26 Most recent lab results Calcium 7.9 MG/DL (8.5-10.1) L 12/02/16 05:26 Phosphorus 4.4 MG/DL (2.5-4.9) 12/02/16 05:26 Magnesium 2.2 MG/DL (1.8-2.4) 11/30/16 04:14 Assessment and Plan (1) Hypertension Status: Chronic Current Visit: Yes Qualifiers: Hypertension type: essential hypertension Qualified Code(s): I10 - Essential (primary) hypertension (2) Chronic kidney disease, stage IV (severe) Status: Acute Assessment and plan: I suspect this patient has chronic kidney disease related to long-standing hypertension, patient's creatinine about 4 years ago was 2.3 mg/dL it is now 4.7 mg/dL we will continue to monitor this. We will check a urinalysis and a spot urine albumin to creatinine ratio. Current Visit: Yes (3) Volume overload Status: Acute Assessment and plan: I agree with the diuretic regimen he is presently on Current Visit: Yes Qualifiers: Hypervolemia type: other Qualified Code(s): E87.79 - Other fluid overload (4) Obesity Status: Chronic Current Visit: Yes Qualifiers: Obesity type: due to excess calories (5) Proteinuria Status: Acute Current Visit: Yes Specialty Discharge - Follow Up or Referrals Follow up with: Chevy Ingram MD [Physician] - 2 Weeks (With a renal panel and a CBC)
[2016-12-02] MEDS: MINOXIDIL 2.5 MG TABLET PO SCH (08:53)
[2016-12-02] MEDS: PANTOPRAZOLE 40 MG TABLET PO SCH (08:53)
[2016-12-02] MEDS: ALLOPURINOL 100 MG TABLET PO SCH (08:53)
[2016-12-02] MEDS: POTASSIUM CHLORIDE 20 MEQ TABLET PO SCH (08:53)
[2016-12-02] MEDS: amLODIPine 10 MG TABLET PO SCH (08:54)
[2016-12-02] MEDS: VALSARTAN 160 MG TABLET PO SCH (08:54)
[2016-12-02] MEDS: CARVEDILOL 25 MG TABLET PO SCH (08:56)
[2016-12-02] MEDS: FUROSEMIDE INJ 160 MG in SODIUM CHLORIDE 0.9% 50 ML IV SCH (08:56)
[2016-12-02] MEDS: SPIRONOLACTONE 25 MG TABLET PO SCH (08:56)
--- NOTE | 2016-12-02 10:34 | Discharge Summary ---
<Marychuy Vera - Last Filed: 12/02/16 12:21> Hospital Course - Hospital Course Hospital Course: Mr Melgar 51 y/o w/PMHx CHF, HTN presented as a direct admit from [facility] on 11/26/16 for hypertension emergency and increase edema. IN ED: LABS: noted UR 12 hour volume 3000, Ur total protein 12 hour 3660, urinalysis negative for infection. BUN 40 and creatinine 4.70, troponin 0.085; ECHO: EF 65%, Hospital Medicine consulted for admission and further treatment of hypertension emergency. Admitted to monitor bed with Cardene infusion started, diuretics, and nephrology consulted for proteinuria. BP improved and converted to by mouth medications for continuation of blood pressure management with control. Nephrology consult/plan: chronic kidney disease stage iv related to long- standing hypertension, has significant amount of proteinuria as reflected by spot albumin to creatinine ratio equivalent to about 5 g of albumin leakage per day: do not feel need to aggressively treat at this time. Plan to continue current medical management of renal disease and chronic hypertension. Nephrology recommends to continue Lasix 160mg twice daily and Metolazone 5mg daily. Patient will need to follow up with Nephrology in 2 weeks in office. Today 12/02/16 patient is stable, symptoms improved and BP has improved with better control. Labs improved and remain stable. He will be discharged home. He will need to follow up with Primary Care Physician. He will need to follow up with Nephrology clinic in 2 weeks with a renal panel and CBC. Further recommendations of discharge planning to follow per Dr Berry. I have personally seen and examined this patient today. I agree with the above note as prepared by the advanced practice provider. I agree with the assessment and plan. The patient is being discharged home today with new prescriptions for blood pressure medications and follow-up with Dr. Ingram. Home medications were reviewed and reconciled. The patient was educated regarding low-salt diets. Specialty Discharge - Follow Up or Referrals Follow up with: Chevy Ingram MD [Physician] - 12/23/16 9:45 am (With a renal panel and a CBC) Discharge Plan - Discharge Data Disposition: Disch To Home/Self Care - Discharge Medications New Carvedilol [Coreg] 25 mg PO BID #60 tablet Furosemide Tab [Lasix Tab] 160 mg PO BID DIURETIC #120 tablet metOLazone [Zaroxolyn] 5 mg PO DAILY #30 tablet Potassium Chloride Cap/Tab [K Dur] 20 meq PO BID #60 tablet Spironolactone [Aldactone] 25 mg PO BID #60 tablet amLODIPine [Norvasc] 10 mg PO DAILY #30 tablet cloNIDine 0.3 MG/24 HR PATCH [[id number] Patch] 1 patch TRANSDERM Q7DAY # 4 patch Minoxidil [Loniten] 5 mg PO DAILY #60 tablet Continue Allopurinol 100 mg PO DAILY #30 tablet cloNIDine TAB [Catapres Tab] 0.3 mg PO TID #90 tablet Valsartan [Diovan] 320 mg PO DAILY #30 tablet hydrALAZINE TAB [Apresoline Tab] 100 mg PO TID #90 tablet Discontinued Furosemide Tab [Lasix Tab] 80 mg PO DAILY Potassium Chloride Cap/Tab [K Dur] 20 meq PO DAILY dilTIAZem HCl [Cardizem LA] 180 mg PO DAILY Metoprolol Succinate Xl [Toprol Xl] 200 mg PO DAILY - Follow Up or Referral Follow Up: Chevy Ingram MD [Physician] - 12/23/16 9:45 am (With a renal panel and a CBC) - Forms/Instructions Instructions: Low Sodium Diet (DC), Hypertensive Crisis (DC), Hypertension (DC) Exam - Constitutional Vitals: Period Temp Pulse Resp BP Sys/Potter Pulse Ox Last 24 Hr 98.4 F-99.2 F 77-81 18-20 145-181/78-90 92-97 Discharge Results Labs on day of discharge: Labs from last 24 hours 12/02/16 05:26 Sodium 138 Potassium 3.5 Chloride 102 Carbon Dioxide 28 Anion Gap 11.5 BUN 47 H Creatinine 4.90 H GFR Calculation 19 BUN/Creatinine Ratio 9.00 Glucose 114 H Calculated Osmolality 287.7 Calcium 7.9 L Phosphorus 4.4 Albumin 2.8 L DS: Provider Date of admission: 11/26/16 19:31 Primary care physician: Nonstaff Physician Attending physician on admission: Nhung Berry MD Consults: 11/26/16 20:40 Consult to Physician [CONS] Routine Comment: nephrosis Consulting Provider: Angel Galvez Consult to Specialist Group: Nephrology Person Notified: MOSHE Date Notified: 11/27/16 Time Notified: 07:50 Discharging clinician: Marychuy Vera NP <Nhung Berry - Last Filed: 12/03/16 07:11> Hospital Course - Time spent with patient Time with patient DS: Greater than 30 minutes (Total discharge time for this patient, including [id number] time, clinical documentation, medication reconciliation, and discharge planning was 37 minutes.) Diagnosis - Discharge Diagnosis (1) Nephrotic range proteinuria Status: Acute (2) CHF with left ventricular diastolic dysfunction, NYHA class 2 Status: Acute (3) Hypertension Status: Chronic (4) Chronic kidney disease, stage IV (severe) Status: Acute (5) Volume overload Status: Acute (6) Obesity Status: Chronic (7) Proteinuria Status: Acute Discharge Plan - Discharge Data Condition at Discharge: Stable Discharge Diet: heart healthy, low salt diet Activity: resume usual activities as tolerated Hygiene: no restrictions DS: Provider Expected date of discharge: 12/02/16
[2016-12-02 12:09] VITALS: BP 172/99
== END 2016-12-02 12:35 | disposition home or self-care (01) | DRG 304 ==
LOC: SUATTDRO 19:31 → N.TELEN 19:31
PROVIDERS: ADMIT Family Medicine; ATTEND Family Medicine

== ENCOUNTER 2016-12-14 18:25 | Inpatient (IN) ==
--- NOTE | 2016-12-14 19:03 | Emergency Department Note ---
Arrival - Arrival Chief Complaint: Weakness Stated Complaint: sent by ED Nursing Triage Note: PT WAS SENT BY DR CANAS OFFICE FOR EVALUATION OF ELEVATED CREATININE (10.3) AND ELEVATED MAGNESIUM (3.4). PT PRESENTED TO DR CANAS OFFICE FOR C/O WEAKNESS AND LETHARGY OVER THE WEEKEND. PT WAS SCHEDULED TO SEE DR STREETER ON WEDNESDAY. Mode of Arrival: Wheelchair Time Seen by Provider: 12/14/16 19:01 - History of Present Illness HPI Narrative: This is a 51-year-old male of descent with a history of congestive heart failure with a left ventricular ejection fraction of 65%, hypertension on Coreg 1 5 mg twice a day, Lasix 160 mg twice a day Zaroxolyn 5 mg once a day Spironolactone 25 mg twice a day Norvasc 10 mg once a day clonidine patch 0.3 mg and minoxidil 5 mg once a day Diovan 320 mg once a day hydralazine 100 mg 3 times a day who has chronic kidney disease stage IV with proteinuria and a baseline creatinine of 4.7, valvular heart disease with pulmonary hypertension who is followed by nephrology and who has had less energy and less appetite the past few days for which he was taken to see his doctor Neva Duvall who noticed that his creatinine had jumped from 4 to 10 who advised him to come to the emergency department for possible admission. Allergies/Adverse Reactions: Allergies Allergy/AdvReac Type Severity Reaction Status Date / Time No Known Allergies Allergy Verified 12/14/16 18:31 Home Medications: Home Medications Medication Instructions Recorded Confirmed Type Allopurinol 100 mg PO DAILY #30 tablet 12/02/16 11/27/16 Rx Carvedilol [Coreg] 25 mg PO BID #60 tablet 12/02/16 Rx Furosemide Tab [Lasix Tab] 160 mg PO BID DIURETIC #120 tablet 12/02/16 Rx Minoxidil [Loniten] 5 mg PO DAILY #60 tablet 12/02/16 Rx Potassium Chloride Cap/Tab [K Dur] 20 meq PO BID #60 tablet 12/02/16 Rx Spironolactone [Aldactone] 25 mg PO BID #60 tablet 12/02/16 Rx Valsartan [Diovan] 320 mg PO DAILY #30 tablet 12/02/16 Rx amLODIPine [Norvasc] 10 mg PO DAILY #30 tablet 12/02/16 Rx cloNIDine 0.3 MG/24 HR PATCH 1 patch TRANSDERM Q7DAY #4 patch 12/02/16 Rx [[id number] Patch] cloNIDine TAB [Catapres Tab] 0.3 mg PO TID #90 tablet 12/02/16 Rx hydrALAZINE TAB [Apresoline Tab] 100 mg PO TID #90 tablet 12/02/16 Rx metOLazone [Zaroxolyn] 5 mg PO DAILY #30 tablet 12/02/16 Rx Review of System - Review of System Constitutional: Absent: fever, night sweats, weakness Eyes: Absent: redness, vision change Head/Ears/Nose/Throat: Absent: epistaxis, nasal drainage Respiratory: Absent: respiratory distress, wheezing Cardiovascular: Absent: dyspnea on exertion, orthopnea, edema Gastrointestinal: Absent: nausea, vomiting, diarrhea Genitourinary male: Absent: urgency, hematuria Musculoskeletal: Absent: joint swelling, lower back pain, leg pain, neck pain Skin: Absent: change in color, change in hair/nails Psychiatric: Absent: anxiety, depression Endocrine: Absent: heat intolerance, polydipsia Hematological/Lymphatic: Absent: easy bruising, lymphadenopathy Allergic/Immunologic: Absent: urticaria, itchy eyes Medical,Surgical,& Family Hx - Medical History Cardio: History of: CHF, Hypertension No history of: Aneurysm, Cardiac Dysrhythmia, Cerebrovascular Disease, Congenital Heart Disease, CAD, [place], Pacemaker, PVD, Valvular Heart Disease Neurology: No history of: Brain Aneurysm, Cerebral Hemorrhage, Cerebrovascular Accident , Cerebral Palsy, Dementia, Migraine, Multiple Sclerosis, Parkinson's Disease, Peripheral Neuropathy, Seizures, TIA, Vertigo, Neurologocal Cancer Endocrine: No history of: Dyslipidemia Respiratory: No history of: Asthma, Bronchitis, COPD, Intubation, Pulmonary Embolism, Pneumonia, Lung Cancer Gastrointestinal: No history of: Bowel Obstruction, Clostridium Difficile, Crohn's Disease, Diverticulitis/ Diverticulosis, Esophageal Varices, GERD, Gastrointestinal Bleed , Hemorrhoids, Hematochezia, Hepatitis, Liver Problems, Pancreatitis, Polyps, Ulcerative Colitis, Gastrointestinal Cancer, GI Problems - Surgical History Cardiac Surgeries: Patient Denies: Femoral-Popliteal Bypass Graft, Cardiac Catheterization, Cardiac Surgery, Carotid Endarterectomy, Internal Defibrillator Thoracic Surgeries: Patient denies;: Lobectomy Neurologic Surgeries: Patient denies: Brain Aneurysm, Cerebral Hemorrhage, Neurologic Surgery HEENT Surgeries: Patient denies: Carotid Endarterectomy Abdominal Surgeries: Patient denies: Abdominal Surgery, Appendectomy, Cholecystectomy, Colonoscopy , Gastric Bypass Surgery, EGD, Hernia Repair, Splenectomy - Family History Family History: Reports;: Family Diabetes, Family Hypertension - Social History Smoking Status: Never smoker Frequency of Alcohol Use: None Type of Drug Use: None Exam Vital Signs: Vital Signs Temperature 97.5 F L 12/14/16 18:27 Pulse Rate 63 12/14/16 18:27 Respiratory Rate 18 12/14/16 18:27 Blood Pressure 154/89 12/14/16 18:27 O2 Sat by Pulse Oximetry 96 12/14/16 18:27 - General General appearance: alert - Eye Eye exam: Present: PERRL, EOMI - ENT ENT exam: Present: normal exam, normal oropharynx - Neck Neck exam: Present: normal inspection, full ROM - Chest Chest inspection: Present: normal inspection - Respiratory Respiratory exam: Present: normal lung sounds bilaterally - Cardiovascular Cardiovascular exam: Present: regular rate, normal rhythm - Abdominal Exam Abdominal exam: Present: soft, normal bowel sounds - Extremities Exam Extremities exam: Present: normal inspection, full ROM - Back Exam Back exam: Present: normal inspection, full ROM - Neurological Exam Neurological exam: Present: alert, oriented X3, CN II-XII intact - Psychiatric Psychiatric exam: Present: normal affect, normal mood - Skin Skin exam: Present: warm, dry, intact Course Course Narrative: The patient's renal function has deteriorated dramatically since his last admission last month. There seems to be a prerenal component from decrease in oral fluid intake. The case was discussed with the hospitalist who agreed to admit the patient to the hospital. Results - Labs CBC & BMP: 12/14/16 19:10 12/14/16 19:10 Disposition Clinical Impression: Acute renal failure, Dehydration Disposition: Still a Patient
[2016-12-14 20:09] LABS: Basophils # 0.1 10*3/uL (0.0-0.2); Eosinophils # 0.1 10*3/uL (0.0-0.87); Hematocrit 45.2 VOL% (42.0-52.0); Immature Granulocytes % 0.3 %; Immature Granulocytes Absolute 0.02 #; Lymphocytes % 17.7 % (21.2-54.2); Mean Corpuscular Hemoglobin 26 PG (27-34); Mean Corpuscular Volume 82.2 FL (87-102); Mean Platelet Volume 11.5 FL (9.6-12.0); Monocytes % 16.6 % (1.7-12.7); Neutrophils # 3.7 10*3/uL (1.4-7.4); Neutrophils % 62.4 % (38.7-73.9); Platelet Count 188 T/CUMM (130-400); Red Cell Distribution Width 14.4 % (9.3-17.3); White Blood Count 5.9 T/CUMM (4-12)
--- NOTE | 2016-12-14 20:18 | Order Completion Report ---
See report scanned to EMR
[2016-12-14 20:21] LABS: VBG Base Excess -0.3 MEQ/L (0-4); VBG HCO3 24.1 MEQ/L (24-28); VBG Oxygen Saturation 96.3 %; VBG PCO2 41.4 MMHG (41-51); VBG PH 7.385; VBG PO2 85.2 MMHG (17-40)
[2016-12-14 20:29] LABS: Albumin 3.9 G/DL (3.4-5.0); Bilirubin,Total 0.8 MG/DL (0.2-1.0); Calcium 9.6 MG/DL (8.5-10.1); Osmolality,Calculated 303.1 MOS/KG (273-304); Potassium 4.6 MMOL/L (3.5-5.1); Total Protein 9.1 G/DL (6.4-8.3); Troponin I Only 0.022 NG/ML (0.00-0.045)
--- NOTE | 2016-12-14 20:41 | XRay Report ---
Portable chest. Indication: Acute renal failure. Comparison: October 21, 2011. The heart is enlarged, increased from the previous. The pulmonary vasculature is normal. The lung kovacs are clear. The osseous structures are unremarkable. Impression: Cardiomegaly with an interval increase in heart size. PROCEDURE INTERPRETED AT [facility] DEPARTMENT OF RADIOLOGY Final Report Signed by: Dr. Socorro Venegas
[2016-12-14 21:00] LABS: Band Neutrophils 3 % (0-10); Eosinophils 2 % (0-10); Lymphocytes 17 % (20-55); Platelet Estimate Normal; Segmented Neutrophils 61 % (50-85); Total Cells Counted 100
[2016-12-14] MEDS ORDERED: SODIUM CHLORIDE 0.9% 2,000 ML IV STA (21:13)
--- NOTE | 2016-12-14 22:39 | Hospitalist History & Physical ---
Assessment and Plan - Time spent with patient Time spent with patient: Greater than 30 minutes (1) Acute on chronic renal failure Status: Acute Assessment and plan: BUN/creat 107/10.4 Patient's baseline BUN/creat 40/4 BNP 17 Gentle hydration Renal U/S pending Urine studies pending Will hold diuretics for now Current Visit: Yes (2) Dehydration Status: Acute Assessment and plan: Gentle rehydration Redraw labs in AM Current Visit: Yes (3) Hypertension Status: Chronic Assessment and plan: Patient's BP 160/90 Will restart home medications Current Visit: Yes Qualifiers: Hypertension type: essential hypertension Qualified Code(s): I10 - Essential (primary) hypertension History of Present Illness Chief complaint: anorexia History of present illness: Called the ER for Mr. Melgar who is a 51 year old male that presents to the emergency room today after being sent here by his primary care provider, Dr. Cardona, for elevated serum creatinine and magnesium. Patient was recently admitted here on 12/02/16 for CHF exacerbation. His BUN and creatinine increased while inpatient but slowly declined. He was discharged with instructions to follow up with Dr. Galvez. Approximately one week later he went to his PCP for stroke like symptoms and he sent the patient to the ER at [facility] in [place], [place]. A CT scan was done and revealed a CVA. Unsure of patient received tPa but that hospital does not have neurology so I'm assuming he did not. While in the hospital, he received more aggressive control of BP management and was discharged home with an earlier nephrology appointment. That appointment is on Dec 23. He was discharged on Clonidine TID and with a Clonidine patch. Since discharge, he has become increasing lethargic, decreased po intake, and hypotension as low as 90/70. The niece stopped applying his patch and his mental status and activity improved. Today, he had a follow up appointment with Dr. Cardona who karlo blood work and then called back patient to inform them the Creatinine was 10 and instructed them to come to [facility] ER. His BUN/creat 107/10.4 per ER lab work. Mag 3.6. Troponin and BNP were negative. EKG showed peaked T waves in V1-V4 although serum K normal so I believe that to be early repolarization. CXR cardiomegaly. Additional history other than HTN and CRF includes CHF. Patient is able to still make urine. He will be admitted under hospital medicine service, gentle hydration, nephrology consultation, pending renal U/S and urine studies. Home medications were reviewed and reconciled. Patient is a full code. Home Medications Medication Instructions Recorded Confirmed Type Allopurinol 100 mg PO DAILY #30 tablet 12/02/16 11/27/16 Rx Carvedilol [Coreg] 25 mg PO BID #60 tablet 12/02/16 Rx Furosemide Tab [Lasix Tab] 160 mg PO BID DIURETIC #120 tablet 12/02/16 Rx Minoxidil [Loniten] 5 mg PO DAILY #60 tablet 12/02/16 Rx Potassium Chloride Cap/Tab [K Dur] 20 meq PO BID #60 tablet 12/02/16 Rx Spironolactone [Aldactone] 25 mg PO BID #60 tablet 12/02/16 Rx Valsartan [Diovan] 320 mg PO DAILY #30 tablet 12/02/16 Rx amLODIPine [Norvasc] 10 mg PO DAILY #30 tablet 12/02/16 Rx cloNIDine 0.3 MG/24 HR PATCH 1 patch TRANSDERM Q7DAY #4 patch 12/02/16 Rx [Onzbnhea-YWO-6 Patch] cloNIDine TAB [Catapres Tab] 0.3 mg PO TID #90 tablet 12/02/16 Rx hydrALAZINE TAB [Apresoline Tab] 100 mg PO TID #90 tablet 12/02/16 Rx metOLazone [Zaroxolyn] 5 mg PO DAILY #30 tablet 12/02/16 Rx Allergies Allergy/AdvReac Type Severity Reaction Status Date / Time No Known Allergies Allergy Verified 12/14/16 18:31 Medical,Surgical,& Family Hx - Medical History Cardio: History of: CHF, Hypertension No history of: Aneurysm, Cardiac Dysrhythmia, Cerebrovascular Disease, Congenital Heart Disease, CAD, [place], Pacemaker, PVD, Valvular Heart Disease Neurology: No history of: Brain Aneurysm, Cerebral Hemorrhage, Cerebrovascular Accident , Cerebral Palsy, Dementia, Migraine, Multiple Sclerosis, Parkinson's Disease, Peripheral Neuropathy, Seizures, TIA, Vertigo, Neurologocal Cancer Endocrine: No history of: Dyslipidemia Respiratory: No history of: Asthma, Bronchitis, COPD, Intubation, Pulmonary Embolism, Pneumonia, Lung Cancer Renal: History of: Renal Failure (chronic) Gastrointestinal: No history of: Bowel Obstruction, Clostridium Difficile, Crohn's Disease, Diverticulitis/ Diverticulosis, Esophageal Varices, GERD, Gastrointestinal Bleed , Hemorrhoids, Hematochezia, Hepatitis, Liver Problems, Pancreatitis, Polyps, Ulcerative Colitis, Gastrointestinal Cancer, GI Problems - Surgical History Cardiac Surgeries: Patient Denies: Femoral-Popliteal Bypass Graft, Cardiac Catheterization, Cardiac Surgery, Carotid Endarterectomy, Internal Defibrillator Thoracic Surgeries: Patient denies;: Lobectomy Neurologic Surgeries: Patient denies: Brain Aneurysm, Cerebral Hemorrhage, Neurologic Surgery HEENT Surgeries: Patient denies: Carotid Endarterectomy Abdominal Surgeries: Patient denies: Abdominal Surgery, Appendectomy, Cholecystectomy, Colonoscopy , Gastric Bypass Surgery, EGD, Hernia Repair, Splenectomy - Family History Family History: Reports;: Family Diabetes (maternal grandmother), Family Hypertension (mother, father, all sets of grandparents), Family Stroke (mother) - Social History Smoking Status: Never smoker Frequency of Alcohol Use: None Type of Drug Use: None Marital Status: Single Lives With:: Children Functional capacity: independent ambulation - Constitutional Constitutional: Present: anorexia, fatigue, lethargy. Absent: chills, fever(s) , weakness - EENT Eyes: Absent: blurry vision Ears: Absent: tinnitus Nose, mouth and throat: Absent: epistaxis, headache(s), neck pain, sinus pressure - Cardiovascular Cardiovascular: Present: edema. Absent: chest pain at rest, chest pain with activity, dyspnea, orthopnea, PND - Respiratory Respiratory: Absent: cough - Gastrointestinal Gastrointestinal: Absent: abdominal pain, cramping, diarrhea, dyspepsia, nausea , vomiting - Genitourinary Genitourinary: Absent: difficulty urinating - Musculoskeletal Musculoskeletal: Absent: arthralgias - Neurological Neurological: Absent: syncope, tremor(s) - Psychiatric Psychiatric: Absent: anxiety - Endocrine Endocrine: Absent: cold intolerance Exam - Constitutional Vitals: Period Temp Pulse Resp BP Sys/Potter Pulse Ox Last 24 Hr 97.5 F 63 18 154/89 96 General appearance: no acute distress, over weight - Head Head exam: Present: normal inspection, normocephalic - Eye Eye exam: Present: EOMI Pupils: Present: SHARI, normal accommodation - ENT ENT exam: Present: normal exam - Neck Neck exam: Present: normal inspection - Respiratory Respiratory exam: Present: clear to auscultation bilaterally (Respirations even and non-labored. Symmetrical rise and fall of chest noted. ). Absent: accessory muscle use - Cardiovascular Cardiovascular exam: Present: regular rate and rhythm. Absent: diastolic murmur , systolic murmur - GI/Abdominal GI/Abdominal exam: Present: normal bowel sounds, soft. Absent: firm, tenderness - Extremities Exam Extremities exam: Present: normal inspection, normal capillary refill, full ROM. Absent: edema - Back Exam Back exam: Present: normal inspection - Neurological Exam Neurological exam: Present: alert, oriented X3 (Makes good eye contact. Answers questions appropriately. ) - Psychiatric Psychiatric exam: Present: normal affect - Skin Skin exam: Present: normal color, warm, dry, intact Results - Labs CBC & BMP: 12/14/16 19:10 12/14/16 19:10 Lab Results: I have reviewed the past 24 hour labs - EKG EKG results: interpreted by ZEN
[2016-12-14] MEDS ORDERED: ONDANSETRON 4 MG/2 ML VIAL IV PRN (23:11)
[2016-12-14] MEDS ORDERED: FAMOTIDINE 20 MG TABLET PO ONE (23:11)
[2016-12-14] MEDS ORDERED: ACETAMINOPHEN 325 MG TABLET PO PRN (23:11)
[2016-12-14 23:49] LABS: Protein/Creatinine Ratio,Urine 1.1 RATIO
[2016-12-15] MEDS: CARVEDILOL 25 MG TABLET PO SCH ×3 (00:02→17:18)
[2016-12-15] MEDS: SODIUM CHLORIDE 0.9% 1,000 ML IV SCH ×2 (00:02→09:16)
[2016-12-15 03:20] LABS: Apearance,Urine CLEAR (Clear); Bacteria,Urine Occasional /HPF (Few); Bilirubin,Urine Negative (Negative); Blood, Urine Small mg/dL (Negative); Glucose,Urine (UA) Negative (Negative); Ketones,Urine Negative (Negative); Nitrite,Urine Negative (Negative); Protein,Urine 100 MG/DL; RBC,Urine 3 /HPF (0-4); Urine Color Yellow (Yellow); Urine Specific Gravity 1.006 (1.001-1.035); Urine Urobilinogen < 2.0 EU/DL (0.2-1.0); WBC,Urine 1 /HPF (0-6)
[2016-12-15 05:40] LABS: Basophils # 0.1 10*3/uL (0.0-0.2); Basophils % 0.9 % (0.0-0.8); Eosinophils # 0.1 10*3/uL (0.0-0.87); Eosinophils % 1.3 % (0.00-10.9); Hematocrit 40.7 VOL% (42.0-52.0); Hemoglobin 12.7 GM/DL (14.0-18.0); Immature Granulocytes % 0.6 %; Immature Granulocytes Absolute 0.03 #; Lymphocytes % 17.5 % (21.2-54.2); Mean Corpuscular HGB Conc 31.2 GM/DL (32-36); Mean Corpuscular Hemoglobin 26 PG (27-34); Mean Corpuscular Volume 81.7 FL (87-102); Mean Platelet Volume 11.2 FL (9.6-12.0); Monocytes # 0.8 10*3/uL (0.11-0.8); Monocytes % 14.9 % (1.7-12.7); Neutrophils # 3.5 10*3/uL (1.4-7.4); Neutrophils % 64.8 % (38.7-73.9); Platelet Count 162 T/CUMM (130-400); Red Blood Count 4.98 MC/CUMM (3.8-5.5); Red Cell Distribution Width 14.6 % (9.3-17.3); White Blood Count 5.4 T/CUMM (4-12)
[2016-12-15 05:59] LABS: Albumin 3.4 G/DL (3.4-5.0); Bilirubin,Total 0.9 MG/DL (0.2-1.0); Calcium 9.5 MG/DL (8.5-10.1); Magnesium 3.4 MG/DL (1.8-2.4); Osmolality,Calculated 308.8 MOS/KG (273-304); Potassium 4.6 MMOL/L (3.5-5.1); Risk Ratio 5.56; Total Protein 7.2 G/DL (6.4-8.3)
--- NOTE | 2016-12-15 07:30 | Ultrasound Report ---
History is renal failure Right kidney is 8.8 cm in length Left kidney is 10.3 cm in length There is diffusely increased renal cortical echogenicity with mild diffuse cortical thinning A less than 1 cm right renal cyst is present There is arterial flow to both kidneys No hydronephrosis seen bilaterally Impression: 1. Evidence of chronic medical renal disease PROCEDURE INTERPRETED AT [facility] DEPARTMENT OF RADIOLOGY Final Report Signed by: Dr. Ritu Venegas
--- NOTE | 2016-12-15 08:22 | Order Completion Report ---
See report scanned to EMR
[2016-12-15] MEDS: VALSARTAN 160 MG TABLET PO SCH (08:45)
[2016-12-15] MEDS: DOCUSATE SODIUM 100 MG CAPSULE PO SCH ×2 (08:45→20:41)
[2016-12-15] MEDS: MINOXIDIL 2.5 MG TABLET PO SCH (08:46)
[2016-12-15] MEDS: amLODIPine 10 MG TABLET PO SCH (08:46)
[2016-12-15] MEDS: ENOXAPARIN 30 MG/0.3 ML SYRINGE SUBCUT SCH ×2 (08:46→08:50)
[2016-12-15] MEDS: ALLOPURINOL 100 MG TABLET PO SCH (08:46)
[2016-12-15] MEDS: PANTOPRAZOLE 40 MG TABLET PO SCH (08:48)
--- NOTE | 2016-12-15 09:05 | Nephrology Consult Note ---
History of Present Illness Chief complaint: Chronic kidney disease History of present illness: Mr. Melgar is a 51 year old male history of hypertension history of CHF who presented with increased shortness of breath fatigue has a history of chronic kidney disease that dates back at least 4 years at which time serum creatinine was noted to be 2.3. The patient had a hospital admission last month for volume overload proteinuria and was seen by Dr. Ingram. At that time, serum creatinine was noted to be 4. He presents with shortness of breath fatigue and found to be volume overload. Moreover, his BUN was 111 and now up to a creatinine of 10.3. Patient states he has not had any problems voiding. There is no history of NSAID medications. The patient has been on diuretic therapy. Patient had a renal ultrasound today that showed evidence of chronic kidney disease. No evidence of hydronephrosis reported. Serum creatinine is noted to be 10.3 today. No rashes or bruises reported by the patient. He states his breathing is better at this particular time. He is in agreement to proceed with renal replacement therapy. Home Medications Medication Instructions Recorded Confirmed Type Allopurinol 100 mg PO DAILY #30 tablet 12/02/16 12/14/16 Rx Carvedilol [Coreg] 25 mg PO BID #60 tablet 12/02/16 12/14/16 Rx Furosemide Tab [Lasix Tab] 160 mg PO BID DIURETIC #120 tablet 12/02/16 12/14/16 Rx Minoxidil [Loniten] 5 mg PO DAILY #60 tablet 12/02/16 Rx Potassium Chloride Cap/Tab [K Dur] 20 meq PO BID #60 tablet 12/02/16 12/14/16 Rx Spironolactone [Aldactone] 25 mg PO BID #60 tablet 12/02/16 Rx Valsartan [Diovan] 320 mg PO DAILY #30 tablet 12/02/16 12/14/16 Rx amLODIPine [Norvasc] 10 mg PO DAILY #30 tablet 12/02/16 12/14/16 Rx cloNIDine 0.3 MG/24 HR PATCH 1 patch TRANSDERM Q7DAY #4 patch 12/02/16 12/14/16 Rx [Pofjcpow-CPD-0 Patch] cloNIDine TAB [Catapres Tab] 0.3 mg PO TID #90 tablet 12/02/16 12/14/16 Rx hydrALAZINE TAB [Apresoline Tab] 100 mg PO TID #90 tablet 12/02/16 12/14/16 Rx metOLazone [Zaroxolyn] 5 mg PO DAILY #30 tablet 12/02/16 12/14/16 Rx Allergies Allergy/AdvReac Type Severity Reaction Status Date / Time No Known Allergies Allergy Verified 12/14/16 18:31 Medical,Surgical,& Family Hx - Medical History Cardio: History of: CHF, Hypertension No history of: Aneurysm, Cardiac Dysrhythmia, Cerebrovascular Disease, Congenital Heart Disease, CAD, [place], Pacemaker, PVD, Valvular Heart Disease Neurology: No history of: Brain Aneurysm, Cerebral Hemorrhage, Cerebrovascular Accident , Cerebral Palsy, Dementia, Migraine, Multiple Sclerosis, Parkinson's Disease, Peripheral Neuropathy, Seizures, TIA, Vertigo, Neurologocal Cancer Endocrine: No history of: Dyslipidemia Respiratory: No history of: Asthma, Bronchitis, COPD, Intubation, Pulmonary Embolism, Pneumonia, Lung Cancer Renal: History of: Renal Failure (chronic) Gastrointestinal: No history of: Bowel Obstruction, Clostridium Difficile, Crohn's Disease, Diverticulitis/ Diverticulosis, Esophageal Varices, GERD, Gastrointestinal Bleed , Hemorrhoids, Hematochezia, Hepatitis, Liver Problems, Pancreatitis, Polyps, Ulcerative Colitis, Gastrointestinal Cancer, GI Problems - Surgical History Cardiac Surgeries: Patient Denies: Femoral-Popliteal Bypass Graft, Cardiac Catheterization, Cardiac Surgery, Carotid Endarterectomy, Internal Defibrillator Thoracic Surgeries: Patient denies;: Lobectomy Neurologic Surgeries: Patient denies: Brain Aneurysm, Cerebral Hemorrhage, Neurologic Surgery HEENT Surgeries: Patient denies: Carotid Endarterectomy Abdominal Surgeries: Patient denies: Abdominal Surgery, Appendectomy, Cholecystectomy, Colonoscopy , Gastric Bypass Surgery, EGD, Hernia Repair, Splenectomy - Family History Family History: Reports;: Family Diabetes (maternal grandmother), Family Hypertension (mother, father, all sets of grandparents), Family Stroke (mother) - Social History Smoking Status: Never smoker Frequency of Alcohol Use: None Type of Drug Use: None Review of Systems Constitutional: fatigue Cardiovascular: dyspnea, no chest pain at rest, no chest pain with activity Respiratory: dyspnea Exam - Vital Signs Vital signs: Period Temp Pulse Resp BP Sys/Potter Pulse Ox Last 24 Hr 97.5 F-98.7 F 63-69 16-20 150-164/79-89 93-96 - General Appearance General appearance: well-developed, well-nourished, obese EENT: ATNC Neck: supple Respiratory: clear Cardiology: regular rate, regular rhythm Gastrointestinal: normoactive bowel sounds, no tenderness Integumentary: no rash Neurologic: alert and oriented x3 Psychiatric: mood/affect appropriate, cooperative Results - Labs CBC & BMP: 12/15/16 04:46 12/15/16 04:46 Assessment and Plan (1) Nephrotic range proteinuria Status: Chronic Assessment and plan: Now with progressive renal failure. Current Visit: No (2) CHF with left ventricular diastolic dysfunction, NYHA class 2 Status: Chronic Current Visit: No (3) Chronic kidney disease, stage IV (severe) Status: Acute Current Visit: No (4) Obesity Status: Chronic Current Visit: No Qualifiers: Obesity type: due to excess calories (5) Acute on chronic renal failure Status: Chronic Assessment and plan: Evidence of chronic kidney disease by renal ultrasound done today. Current Visit: Yes Qualifiers: Chronic kidney disease stage: stage 5, not on chronic dialysis
[2016-12-15 09:35] LABS: Basophils % 0.6 % (0.0-0.8); Eosinophils # 0.1 10*3/uL (0.0-0.87); Eosinophils % 1.7 % (0.00-10.9); Hematocrit 40.2 VOL% (42.0-52.0); Hemoglobin 12.7 GM/DL (14.0-18.0); Immature Granulocytes % 0.2 %; Immature Granulocytes Absolute 0.01 #; Lymphocytes # 0.9 10*3/uL (1.4-4.0); Lymphocytes % 17.3 % (21.2-54.2); Mean Corpuscular HGB Conc 31.6 GM/DL (32-36); Mean Corpuscular Hemoglobin 26 PG (27-34); Mean Corpuscular Volume 81.7 FL (87-102); Mean Platelet Volume 10.6 FL (9.6-12.0); Monocytes # 0.7 10*3/uL (0.11-0.8); Monocytes % 12.7 % (1.7-12.7); Neutrophils # 3.6 10*3/uL (1.4-7.4); Neutrophils % 67.5 % (38.7-73.9); Platelet Count 146 T/CUMM (130-400); Red Blood Count 4.92 MC/CUMM (3.8-5.5); Red Cell Distribution Width 14.6 % (9.3-17.3); White Blood Count 5.3 T/CUMM (4-12)
[2016-12-15 09:43] LABS: INR 1.1; PT Patient Result 11.5 SECS; Partial Thromboplastin Time 31.4 SECS (0-40)
[2016-12-15 10:11] LABS: Albumin 3.4 G/DL (3.4-5.0); Bilirubin,Total 0.9 MG/DL (0.2-1.0); Calcium 9.1 MG/DL (8.5-10.1); Osmolality,Calculated 308.8 MOS/KG (273-304); Potassium 4.3 MMOL/L (3.5-5.1); Total Protein 7.2 G/DL (6.4-8.3)
[2016-12-15 10:21] LABS: Hepatitis A Ab IgM Quant 0.09 Index; Hepatitis A Ab IgM Result Negative (Negative); Hepatitis B Core IgM Quant 0.13 Index; Hepatitis B Core IgM Result Negative (Negative); Hepatitis B Surface Ag Quant < 0.10 Index; Hepatitis B Surface Ag Result Negative (Negative); Hepatitis C Virus Ab Result Negative (Negative)
--- NOTE | 2016-12-15 10:59 | Hospitalist Progress Note ---
Assessment and Plan (1) Acute on chronic renal failure Status: Chronic Assessment and plan: Pt. bun/creatinine today is 116/10.3. Nephrology has been consulted and has seen. Pt. will need access for dialysis. Avoid nephrotoxic agents. Daily bmps. Current Visit: Yes Qualifiers: Chronic kidney disease stage: stage 5, not on chronic dialysis (2) Dehydration Status: Acute Current Visit: Yes (3) Hypertension Status: Chronic Assessment and plan: Restart home meds. Current Visit: Yes Qualifiers: Hypertension type: essential hypertension Qualified Code(s): I10 - Essential (primary) hypertension Hospitalist: Subjective Interval history: Pt. seen and examined this am with family present at bedside. Pt. is alert and oriented with flat affect. Pt. verbalized understanding of his kidney failure. No apparent distress. Denies any issues at this time. Nephrology is following. continue to monitor. Exam - Constitutional Vitals: Period Temp Pulse Resp BP Sys/Potter Pulse Ox Last 24 Hr 97.5 F-98.7 F 63-69 16-20 150-181/79-89 92-96 General appearance: no acute distress, over weight - Head Head exam: Present: normal inspection, normocephalic - Eye Eye exam: Present: EOMI Pupils: Present: SHARI - Respiratory Respiratory exam: Present: clear to auscultation bilaterally. Absent: wheezes - Cardiovascular Cardiovascular exam: Present: regular rate and rhythm - GI/Abdominal GI/Abdominal exam: Present: normal bowel sounds, soft. Absent: tenderness - Extremities Exam Extremities exam: Present: edema - Neurological Exam Neurological exam: Present: alert, oriented X3 - Psychiatric Psychiatric exam: Present: flat affect - Skin Skin exam: Present: normal color, warm, dry Results - Labs CBC & BMP: 12/15/16 09:25 12/15/16 09:25 Lab Results: I have reviewed the past 24 hour labs
--- NOTE | 2016-12-15 12:05 | General Surgery Consult Note ---
Assessment and Plan (1) Acute on chronic renal failure Status: Chronic Assessment and plan: Patient is suffering worsening renal failure now requires hemodialysis. We will proceed with placement of tunneled catheter in the morning. Current Visit: Yes Qualifiers: Chronic kidney disease stage: stage 5, not on chronic dialysis History of Present Illness Chief complaint: dialysis cathter History of present illness: Mr. Melgar is a 51 year old male with past medical history of hypertension, CHF, and CKD stage IV admitted with symptomatic acute on chronic renal failure with need for hemodialysis. General surgery has been consulted for catheter placement. The patient is lethargic the time of my exam with a family member at bedside assisting in history. Most of history is obtained and reviewed the medical record. Filament of present denies any history of requiring central line placement or neck/chest trauma. Home Medications Medication Instructions Recorded Confirmed Type Allopurinol 100 mg PO DAILY #30 tablet 12/02/16 12/14/16 Rx Carvedilol [Coreg] 25 mg PO BID #60 tablet 12/02/16 12/14/16 Rx Furosemide Tab [Lasix Tab] 160 mg PO BID DIURETIC #120 tablet 12/02/16 12/14/16 Rx Minoxidil [Loniten] 5 mg PO DAILY #60 tablet 12/02/16 12/15/16 Rx Potassium Chloride Cap/Tab [K Dur] 20 meq PO BID #60 tablet 12/02/16 12/14/16 Rx Spironolactone [Aldactone] 25 mg PO BID #60 tablet 12/02/16 12/15/16 Rx Valsartan [Diovan] 320 mg PO DAILY #30 tablet 12/02/16 12/14/16 Rx amLODIPine [Norvasc] 10 mg PO DAILY #30 tablet 12/02/16 12/14/16 Rx cloNIDine 0.3 MG/24 HR PATCH 1 patch TRANSDERM Q7DAY #4 patch 12/02/16 12/14/16 Rx [Jhtpsepg-QGE-5 Patch] cloNIDine TAB [Catapres Tab] 0.3 mg PO TID #90 tablet 12/02/16 12/14/16 Rx hydrALAZINE TAB [Apresoline Tab] 100 mg PO TID #90 tablet 12/02/16 12/14/16 Rx metOLazone [Zaroxolyn] 5 mg PO DAILY #30 tablet 12/02/16 12/14/16 Rx Allergies Allergy/AdvReac Type Severity Reaction Status Date / Time No Known Allergies Allergy Verified 12/14/16 18:31 Medical,Surgical,& Family Hx - Medical History Cardio: History of: CHF, Hypertension Renal: History of: Renal Problems (CKD 4) - Surgical History Cardiac Surgeries: Patient Denies: Cardiac Catheterization - Family History Family History: Reports;: Family Diabetes (maternal grandmother), Family Hypertension (mother, father, all sets of grandparents), Family Stroke (mother) - Social History Smoking Status: Never smoker Frequency of Alcohol Use: None Type of Drug Use: None ROS unobtainable: due to mental status, other (Patient arousable but falls asleep for questioning) Exam - Constitutional Vitals: Period Temp Pulse Resp BP Sys/Potter Pulse Ox Last 24 Hr 97.5 F-98.7 F 63-69 16-20 150-181/79-89 92-96 General appearance: no acute distress, other (Arousable, but would fall back to sleepOn questioning) - Neck Neck exam: Present: trachea midline - Respiratory Respiratory exam: Present: clear to auscultation bilaterally - Cardiovascular Cardiovascular exam: Present: RRR - GI/Abdominal GI/Abdominal exam: Present: normal bowel sounds, soft. Absent: distended, tenderness - Extremities Exam Extremities exam: Absent: calf tenderness, edema - Neurological Exam Neurological exam: Present: other (Sleeping; arousable but would not answer line of questioning) - Skin Skin exam: Present: normal color, warm Results - Labs CBC & BMP: 12/15/16 09:25 12/15/16 09:25 Lab Results: I have reviewed the past 24 hour labs - Diagnostic Findings Procedure: Chest x-ray: report reviewed by me
[2016-12-15] MEDS ORDERED: ASPIRIN CHEW 81 MG TABLET PO ONE (16:58)
--- NOTE | 2016-12-15 17:54 | Sleep Medicine Consult ---
Assessment and Plan (1) Unspecified sleep apnea Status: Acute Assessment and plan: This patient does have symptoms concerning for sleep apnea with his comorbidities, I do think sleep evaluation is indicated. He currently is on nocturnal O2 and if he is stable enough to be on room air overnight, we could do home sleep testing on him. Thank you for this consult and the opportunity to participate in his care. Current Visit: Yes (2) Hypertensive emergency Status: Resolved Assessment and plan: The prevalence rate for obstructive sleep apnea patients with hypertension is 35 %. That rate can be as high as 80% in patients who require 4 or more medications for blood pressure control. Current Visit: No (3) CHF with left ventricular diastolic dysfunction, NYHA class 2 Status: Chronic Assessment and plan: Untreated sleep apnea certainly can be a contributing factor to CHF whether systolic or diastolic in nature. Treating sleep apnea in these patients can improve management of these patients with CHF. Current Visit: Yes History of Present Illness Chief complaint: Sleep apnea History of present illness: Mr. Melgar is a 51 year old male admitted with difficult to control hypertension and chronic kidney disease. Sleep medicine was consulted. He has a history of snoring and abnormal breathing during sleep. He has awoken from sleep with shortness of breath before. He does have a difficult time maintaining sleep with frequent awakenings. Some of these awakenings are related to need to urinate. He is bothered by daytime fatigue and sleepiness during the day. He has never had prior sleep evaluation in the past. Home Medications Medication Instructions Recorded Confirmed Type Allopurinol 100 mg PO DAILY #30 tablet 12/02/16 12/14/16 Rx Carvedilol [Coreg] 25 mg PO BID #60 tablet 12/02/16 12/14/16 Rx Furosemide Tab [Lasix Tab] 160 mg PO BID DIURETIC #120 tablet 12/02/16 12/14/16 Rx Minoxidil [Loniten] 5 mg PO DAILY #60 tablet 12/02/16 12/15/16 Rx Potassium Chloride Cap/Tab [K Dur] 20 meq PO BID #60 tablet 12/02/16 12/14/16 Rx Spironolactone [Aldactone] 25 mg PO BID #60 tablet 12/02/16 12/15/16 Rx Valsartan [Diovan] 320 mg PO DAILY #30 tablet 12/02/16 12/14/16 Rx amLODIPine [Norvasc] 10 mg PO DAILY #30 tablet 12/02/16 12/14/16 Rx cloNIDine 0.3 MG/24 HR PATCH 1 patch TRANSDERM Q7DAY #4 patch 12/02/16 12/14/16 Rx [Tyvcffuy-NYR-0 Patch] cloNIDine TAB [Catapres Tab] 0.3 mg PO TID #90 tablet 12/02/16 12/14/16 Rx hydrALAZINE TAB [Apresoline Tab] 100 mg PO TID #90 tablet 12/02/16 12/14/16 Rx metOLazone [Zaroxolyn] 5 mg PO DAILY #30 tablet 12/02/16 12/14/16 Rx Allergies Allergy/AdvReac Type Severity Reaction Status Date / Time No Known Allergies Allergy Verified 12/14/16 18:31 Review of systems: Otherwise unremarkable from a sleep medicine standpoint. Exam (Pulmonay) H&P - Constitutional Vitals: Period Temp Pulse Resp BP Sys/Potter Pulse Ox Last 24 Hr 97.5 F-98.7 F 63-69 16-20 133-181/66-89 92-96 Exam: He is alert and responsive. Pupils equal round reactive to light and accommodation. Extraocular movements intact. Oropharynx with class IV Mallampati exam. Neck supple without adenopathy or thyromegaly. Chest with symmetrical breath sounds without focal wheeze or rhonchi. Cardiac exam reveals a regular rhythm without murmur or gallop. Abdomen obese nontender without palpable hepatosplenomegaly or mass. Extremities are without significant clubbing, cyanosis, but he does have trace pitting edema. Neurologically, he is grossly intact. Medical,Surgical,& Family Hx - Medical History Cardio: History of: CHF, Hypertension No history of: Aneurysm, Cardiac Dysrhythmia, Cerebrovascular Disease, Congenital Heart Disease, CAD, [place], Pacemaker, PVD, Valvular Heart Disease Neurology: No history of: Brain Aneurysm, Cerebral Hemorrhage, Cerebrovascular Accident , Cerebral Palsy, Dementia, Migraine, Multiple Sclerosis, Parkinson's Disease, Peripheral Neuropathy, Seizures, TIA, Vertigo, Neurologocal Cancer Endocrine: No history of: Dyslipidemia Respiratory: No history of: Asthma, Bronchitis, COPD, Intubation, Pulmonary Embolism, Pneumonia, Lung Cancer Renal: History of: Renal Failure (chronic), Renal Problems (CKD 4) Gastrointestinal: No history of: Bowel Obstruction, Clostridium Difficile, Crohn's Disease, Diverticulitis/ Diverticulosis, Esophageal Varices, GERD, Gastrointestinal Bleed , Hemorrhoids, Hematochezia, Hepatitis, Liver Problems, Pancreatitis, Polyps, Ulcerative Colitis, Gastrointestinal Cancer, GI Problems - Surgical History Cardiac Surgeries: Patient Denies: Femoral-Popliteal Bypass Graft, Cardiac Catheterization, Cardiac Surgery, Carotid Endarterectomy, Internal Defibrillator Thoracic Surgeries: Patient denies;: Lobectomy Neurologic Surgeries: Patient denies: Brain Aneurysm, Cerebral Hemorrhage, Neurologic Surgery HEENT Surgeries: Patient denies: Carotid Endarterectomy Abdominal Surgeries: Patient denies: Abdominal Surgery, Appendectomy, Cholecystectomy, Colonoscopy , Gastric Bypass Surgery, EGD, Hernia Repair, Splenectomy - Family History Family History: Reports;: Family Diabetes (maternal grandmother), Family Hypertension (mother, father, all sets of grandparents), Family Stroke (mother) - Social History Smoking Status: Current some day smoker Frequency of Alcohol Use: None Type of Drug Use: None Results - Labs CBC & BMP: 12/15/16 09:25 12/15/16 09:25 Lab Results: I have reviewed the past 24 hour labs
[2016-12-15 18:13] LABS: Troponin I Only 0.023 NG/ML (0.00-0.045)
--- NOTE | 2016-12-15 21:47 | Cardiology Consult Note ---
I, Chloe Chadwick RN, am scribing for, and in the presence of, Ilan Blackwell MD 21:46. Assessment and Plan - Time spent with patient Time spent with patient: Greater than 30 minutes (Due to assessment, planning, documentation, medication review) (1) Abnormal EKG Status: Chronic Assessment and plan: The abnormal EKG as he mentioned changes since yesterday. However he has no symptoms and his troponins are negative. I doubt this is ACS. I believe it is more of a metabolic changed from his renal failure and electrolyte findings. Plan/rec: We'll get some other serial enzymes and see if positive. If so will consider ischemia If not, I doubt is ischemia and more is toxic metabolic or LVH related. We'll keep him nothing by mouth after midnight If he seems to be stable tomorrow he may proceed with the placement of a dialysis catheter and dialysis. I started him on aspirin 325 mg by mouth now that 81 milligrams daily starting tomorrow He is on a beta hedy I conferred care with his surgeon and anesthesiologist. They voice understanding of my overall assessment Thank you for allowing me to state in this patient's care. 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 Melgar is a 51 year old male with a history of renal failure and hypertension. General surgery was consulted for placement of tunneled dialysis catheter. Cardiology was consulted because of EKG changes. BUN and creatinine today is 110 and 10.3. He denies chest pain. He does report some shortness of breath at rest as well as orthopnea. He has reports that he snores and stops breathing while sleeping as well as fatigue. His blood sugar pressures have been elevated this admission, this afternoon it is better 133/66. Troponin on admission was negative. Echocardiogram done November 2016 with ejection fraction of 65% in 2-3+ concentric LVH. CC: Raiza Gooden MD - Home Medications and Allergies Home Medications: Home Medications Medication Instructions Recorded Confirmed Type Allopurinol 100 mg PO DAILY #30 tablet 12/02/16 12/14/16 Rx Carvedilol [Coreg] 25 mg PO BID #60 tablet 12/02/16 12/14/16 Rx Furosemide Tab [Lasix Tab] 160 mg PO BID DIURETIC #120 tablet 12/02/16 12/14/16 Rx Minoxidil [Loniten] 5 mg PO DAILY #60 tablet 12/02/16 12/15/16 Rx Potassium Chloride Cap/Tab [K Dur] 20 meq PO BID #60 tablet 12/02/16 12/14/16 Rx Spironolactone [Aldactone] 25 mg PO BID #60 tablet 12/02/16 12/15/16 Rx Valsartan [Diovan] 320 mg PO DAILY #30 tablet 12/02/16 12/14/16 Rx amLODIPine [Norvasc] 10 mg PO DAILY #30 tablet 12/02/16 12/14/16 Rx cloNIDine 0.3 MG/24 HR PATCH 1 patch TRANSDERM Q7DAY #4 patch 12/02/16 12/14/16 Rx [Oggbwciu-CLA-6 Patch] cloNIDine TAB [Catapres Tab] 0.3 mg PO TID #90 tablet 12/02/16 12/14/16 Rx hydrALAZINE TAB [Apresoline Tab] 100 mg PO TID #90 tablet 12/02/16 12/14/16 Rx metOLazone [Zaroxolyn] 5 mg PO DAILY #30 tablet 12/02/16 12/14/16 Rx Allergies/Adverse Reactions: Allergies Allergy/AdvReac Type Severity Reaction Status Date / Time No Known Allergies Allergy Verified 12/14/16 18:31 - Constitutional Constitutional: Present: as per HPI - Cardiovascular Cardiovascular: Present: dyspnea, dyspnea on exertion, edema, orthopnea. Absent : chest pain at rest, chest pain with activity, lightheadedness, palpitations - Respiratory Respiratory: Present: dyspnea, dyspnea on exertion. Absent: cough, hemoptysis, wheezing - Gastrointestinal Gastrointestinal: Absent: abdominal pain, constipation, diarrhea, hematemesis, hematochezia, melena, nausea, vomiting - Genitourinary Genitourinary: Absent: dysuria, hematuria Medical,Surgical,& Family Hx - Medical History Cardio: History of: CHF, Hypertension Renal: History of: Renal Failure (chronic), Renal Problems (CKD 4) - Surgical History Surgical History: noncontributory - Family History Family History: Reports;: Family Diabetes (maternal grandmother), Family Hypertension (mother, father, all sets of grandparents), Family Stroke (mother) - Social History Smoking Status: Current some day smoker Frequency of Alcohol Use: None Type of Drug Use: None Physical Examination Vital Signs Temp Pulse Resp BP Pulse Ox 97.5 F L 63 18 154/89 96 12/14/16 18:27 12/14/16 18:27 12/14/16 18:27 12/14/16 18:27 12/14/16 18:27 General: Present: Appears Well, No Apparent Distress HEENT: Present: PERRL, Mucus Membranes Moist Neck: Present: Supple Neck, Midline Trachea, No Bruit Cardiac: Present: Reg Rate and Rhythm, No Murmur Lungs: Present: Normal Breath Sounds, No Wheeze, Rales, Rhonchi Neuro: Absent: Resting Tremor, Essential Tremor Abdomen: Present: Soft, Active Bowel Sounds, Non-Tender. Absent: Distended Skin: Absent: Rash, Suspicious Lesions Extremities: Present: Normal Upper Extr. Pulses, Normal Lower Extr. Pulses, +1 Edema Result/EKG - Labs CBC & BMP: 12/15/16 09:25 12/15/16 09:25 Lab Results: I have reviewed the past 24 hour labs Labs: Laboratory Results - last 24 hr 12/14/16 12/14/16 12/14/16 19:10 19:10 19:10 WBC 5.9 RBC 5.50 Hgb 14.0 Hct 45.2 MCV 82.2 L MCH 26 L MCHC 31.0 L RDW 14.4 Plt Count 188 MPV 11.5 Neut % (Auto) 62.4 Lymph % (Auto) 17.7 L [place] % (Auto) 16.6 H Eos % (Auto) 2.0 Baso % (Auto) 1.0 H Neut # (Auto) 3.7 Lymph # (Auto) 1.0 L [place] # (Auto) 1.0 H Eos # (Auto) 0.1 Baso # (Auto) 0.1 Total Counted 100 Immature Gran % 0.3 Nucleated RBC % 0.0 Immature Gran # 0.02 Segmented Neutrophils 61 Band Neutrophils 3 Lymphocytes 17 L Monocytes 17 H Eosinophils 2 Nucleated RBCs # 0.00 Platelet Estimate Normal Immature Plt Fraction 0.0 INR PT Patient/Control Mix Circ Anticoag PTT VBG pH VBG pCO2 VBG pO2 VBG HCO3 VBG Total CO2 VBG O2 Saturation VBG Base Excess FiO2 Sodium 135 L Potassium 4.6 Chloride 95 L Carbon Dioxide 26 Anion Gap 18.6 H BUN 107 H Creatinine 10.40 H GFR Calculation 7 BUN/Creatinine Ratio 10.00 Glucose 96 POC Glucose Calculated Osmolality 303.1 Calcium 9.6 Magnesium Total Bilirubin 0.80 AST 23 ALT 31 Alkaline Phosphatase 89 Troponin I 0.022 B-Natriuretic Peptide 17 Total Protein 9.1 H Albumin 3.9 Globulin 5.2 H Albumin/Globulin Ratio 0.7 L Triglycerides Cholesterol LDL Cholesterol VLDL Cholesterol HDL Cholesterol Heart Disease Risk Ratio Urine Color Urine Appearance Urine pH Ur Specific [place] Urine Protein Urine Glucose (UA) Urine Ketones Urine Blood Urine Nitrate Urine Bilirubin Urine Urobilinogen Urine Leukocytes Urine RBC Urine WBC Urine Bacteria Ur Culture Indicated? Protein/Creatinin Ratio Hepatitis A IgM Ab Hep Bs Antigen Hep B Core IgM Ab Hepatitis C Antibody 12/14/16 12/14/16 12/14/16 19:10 19:10 23:11 WBC RBC Hgb Hct MCV MCH MCHC RDW Plt Count MPV Neut % (Auto) Lymph % (Auto) [place] % (Auto) Eos % (Auto) Baso % (Auto) Neut # (Auto) Lymph # (Auto) [place] # (Auto) Eos # (Auto) Baso # (Auto) Total Counted Immature Gran % Nucleated RBC % Immature Gran # Segmented Neutrophils Band Neutrophils Lymphocytes Monocytes Eosinophils Nucleated RBCs # Platelet Estimate Immature Plt Fraction INR PT Patient/Control Mix Circ Anticoag PTT VBG pH 7.385 VBG pCO2 41.4 VBG pO2 85.2 H VBG HCO3 24.1 VBG Total CO2 21.6 VBG O2 Saturation 96.3 VBG Base Excess -0.3 L FiO2 21.00 Sodium Potassium Chloride Carbon Dioxide Anion Gap BUN Creatinine GFR Calculation BUN/Creatinine Ratio Glucose POC Glucose Calculated Osmolality Calcium Magnesium 3.6 H Total Bilirubin AST ALT Alkaline Phosphatase Troponin I B-Natriuretic Peptide Total Protein Albumin Globulin Albumin/Globulin Ratio Triglycerides Cholesterol LDL Cholesterol VLDL Cholesterol HDL Cholesterol Heart Disease Risk Ratio Urine Color Urine Appearance Urine pH Ur Specific [place] Urine Protein Urine Glucose (UA) Urine Ketones Urine Blood Urine Nitrate Urine Bilirubin Urine Urobilinogen Urine Leukocytes Urine RBC Urine WBC Urine Bacteria Ur Culture Indicated? Protein/Creatinin Ratio 1.1 Hepatitis A IgM Ab Hep Bs Antigen Hep B Core IgM Ab Hepatitis C Antibody 12/15/16 12/15/16 12/15/16 00:00 04:44 04:46 WBC 5.4 RBC 4.98 Hgb 12.7 L Hct 40.7 L MCV 81.7 L MCH 26 L MCHC 31.2 L RDW 14.6 Plt Count 162 MPV 11.2 Neut % (Auto) 64.8 Lymph % (Auto) 17.5 L [place] % (Auto) 14.9 H Eos % (Auto) 1.3 Baso % (Auto) 0.9 H Neut # (Auto) 3.5 Lymph # (Auto) 1.0 L [place] # (Auto) 0.8 Eos # (Auto) 0.1 Baso # (Auto) 0.1 Total Counted Immature Gran % 0.6 Nucleated RBC % 0.0 Immature Gran # 0.03 Segmented Neutrophils Band Neutrophils Lymphocytes Monocytes Eosinophils Nucleated RBCs # 0.00 Platelet Estimate Immature Plt Fraction 0.0 INR PT Patient/Control Mix Circ Anticoag PTT VBG pH VBG pCO2 VBG pO2 VBG HCO3 VBG Total CO2 VBG O2 Saturation VBG Base Excess FiO2 Sodium Potassium Chloride Carbon Dioxide Anion Gap BUN Creatinine GFR Calculation BUN/Creatinine Ratio Glucose POC Glucose Calculated Osmolality Calcium Magnesium Total Bilirubin AST ALT Alkaline Phosphatase Troponin I B-Natriuretic Peptide Total Protein Albumin Globulin Albumin/Globulin Ratio Triglycerides Cholesterol LDL Cholesterol VLDL Cholesterol HDL Cholesterol Heart Disease Risk Ratio Urine Color Yellow Urine Appearance Clear Urine pH 7.0 Ur Specific [place] 1.006 Urine Protein 100 Urine Glucose (UA) Negative Urine Ketones Negative Urine Blood Small Urine Nitrate Negative Urine Bilirubin Negative Urine Urobilinogen < 2.0 H Urine Leukocytes Negative Urine RBC 3 Urine WBC 1 Urine Bacteria Occasional Ur Culture Indicated? Not indicated Protein/Creatinin Ratio Hepatitis A IgM Ab Negative Hep Bs Antigen Negative Hep B Core IgM Ab Negative Hepatitis C Antibody Negative 12/15/16 12/15/16 12/15/16 04:46 09:25 09:25 WBC 5.3 RBC 4.92 Hgb 12.7 L Hct 40.2 L MCV 81.7 L MCH 26 L MCHC 31.6 L RDW 14.6 Plt Count 146 MPV 10.6 Neut % (Auto) 67.5 Lymph % (Auto) 17.3 L [place] % (Auto) 12.7 Eos % (Auto) 1.7 Baso % (Auto) 0.6 Neut # (Auto) 3.6 Lymph # (Auto) 0.9 L [place] # (Auto) 0.7 Eos # (Auto) 0.1 Baso # (Auto) 0.0 Total Counted Immature Gran % 0.2 Nucleated RBC % 0.0 Immature Gran # 0.01 Segmented Neutrophils Band Neutrophils Lymphocytes Monocytes Eosinophils Nucleated RBCs # 0.00 Platelet Estimate Immature Plt Fraction 0.0 INR 1.1 PT Patient/Control Mix 11.5 Circ Anticoag PTT 31.4 VBG pH VBG pCO2 VBG pO2 VBG HCO3 VBG Total CO2 VBG O2 Saturation VBG Base Excess FiO2 Sodium 137 Potassium 4.6 Chloride 99 Carbon Dioxide 25 Anion Gap 17.6 H BUN 116 H Creatinine 10.30 H GFR Calculation 8 BUN/Creatinine Ratio 11.00 Glucose 85 POC Glucose Calculated Osmolality 308.8 H Calcium 9.5 Magnesium 3.4 H Total Bilirubin 0.90 AST 19 ALT 23 Alkaline Phosphatase 77 Troponin I B-Natriuretic Peptide Total Protein 7.2 Albumin 3.4 Globulin 3.8 H Albumin/Globulin Ratio 0.8 L Triglycerides 135 Cholesterol 217 H LDL Cholesterol 138.0 VLDL Cholesterol 27.0 HDL Cholesterol 39 L Heart Disease Risk Ratio 5.56 Urine Color Urine Appearance Urine pH Ur Specific [place] Urine Protein Urine Glucose (UA) Urine Ketones Urine Blood Urine Nitrate Urine Bilirubin Urine Urobilinogen Urine Leukocytes Urine RBC Urine WBC Urine Bacteria Ur Culture Indicated? Protein/Creatinin Ratio Hepatitis A IgM Ab Hep Bs Antigen Hep B Core IgM Ab Hepatitis C Antibody 12/15/16 12/15/16 09:25 12:50 WBC RBC Hgb Hct MCV MCH MCHC RDW Plt Count MPV Neut % (Auto) Lymph % (Auto) [place] % (Auto) Eos % (Auto) Baso % (Auto) Neut # (Auto) Lymph # (Auto) [place] # (Auto) Eos # (Auto) Baso # (Auto) Total Counted Immature Gran % Nucleated RBC % Immature Gran # Segmented Neutrophils Band Neutrophils Lymphocytes Monocytes Eosinophils Nucleated RBCs # Platelet Estimate Immature Plt Fraction INR PT Patient/Control Mix Circ Anticoag PTT VBG pH VBG pCO2 VBG pO2 VBG HCO3 VBG Total CO2 VBG O2 Saturation VBG Base Excess FiO2 Sodium 137 Potassium 4.3 Chloride 99 Carbon Dioxide 27 Anion Gap 15.3 H BUN 110 H Creatinine 10.00 H GFR Calculation 8 BUN/Creatinine Ratio 11.00 Glucose 110 H POC Glucose 100 Calculated Osmolality 308.8 H Calcium 9.1 Magnesium Total Bilirubin 0.90 AST 17 ALT 25 Alkaline Phosphatase 77 Troponin I B-Natriuretic Peptide Total Protein 7.2 Albumin 3.4 Globulin 3.8 H Albumin/Globulin Ratio 0.8 L Triglycerides Cholesterol LDL Cholesterol VLDL Cholesterol HDL Cholesterol Heart Disease Risk Ratio Urine Color Urine Appearance Urine pH Ur Specific [place] Urine Protein Urine Glucose (UA) Urine Ketones Urine Blood Urine Nitrate Urine Bilirubin Urine Urobilinogen Urine Leukocytes Urine RBC Urine WBC Urine Bacteria Ur Culture Indicated? Protein/Creatinin Ratio Hepatitis A IgM Ab Hep Bs Antigen Hep B Core IgM Ab Hepatitis C Antibody - Diagnostic Findings Procedure: Chest x-ray: report reviewed by me - EKG EKG results: interpreted by me EKG shows: sinus rhythm Specialty Discharge - Follow Up or Referrals Follow up with: Ilan Blackwell MD [Physician] - I, Ilan Blackwell MD, personally performed the services described in this documentation, ascribed by Chloe Chadwick RN in my presence, and it is both accurate and complete .
[2016-12-15 23:24] LABS: Troponin I Only 0.026 NG/ML (0.00-0.045)
[2016-12-16 06:47] LABS: Basophils % 0.8 % (0.0-0.8); Eosinophils # 0.1 10*3/uL (0.0-0.87); Eosinophils % 2.3 % (0.00-10.9); Hematocrit 41.1 VOL% (42.0-52.0); Hemoglobin 12.8 GM/DL (14.0-18.0); Immature Granulocytes % 0.4 %; Immature Granulocytes Absolute 0.02 #; Lymphocytes # 0.7 10*3/uL (1.4-4.0); Lymphocytes % 13.9 % (21.2-54.2); Mean Corpuscular HGB Conc 31.1 GM/DL (32-36); Mean Corpuscular Hemoglobin 26 PG (27-34); Mean Corpuscular Volume 82.7 FL (87-102); Mean Platelet Volume 10.3 FL (9.6-12.0); Monocytes # 0.7 10*3/uL (0.11-0.8); Monocytes % 12.9 % (1.7-12.7); Neutrophils # 3.7 10*3/uL (1.4-7.4); Neutrophils % 69.7 % (38.7-73.9); Platelet Count 156 T/CUMM (130-400); Red Blood Count 4.97 MC/CUMM (3.8-5.5); Red Cell Distribution Width 14.2 % (9.3-17.3); White Blood Count 5.3 T/CUMM (4-12)
[2016-12-16 07:16] LABS: Albumin 3.4 G/DL (3.4-5.0); Bilirubin,Total 1.1 MG/DL (0.2-1.0); Calcium 9.3 MG/DL (8.5-10.1); Potassium 4.3 MMOL/L (3.5-5.1); Total Protein 7.5 G/DL (6.4-8.3)
[2016-12-16 07:27] LABS: Troponin I Only 0.019 NG/ML (0.00-0.045)
--- NOTE | 2016-12-16 07:43 | Order Completion Report ---
See report scanned to EMR
[2016-12-16] MEDS ORDERED: HEPARIN 5,000 UNIT/1 ML VIAL ONE (08:26)
[2016-12-16] MEDS ORDERED: PROPOFOL 200 MG/20 ML VIAL IV ONE (08:54)
[2016-12-16] MEDS ORDERED: LIDOCAINE 2% 5 ML VIAL ONE (08:54)
[2016-12-16] MEDS: CARVEDILOL 25 MG TABLET PO SCH ×2 (09:31→17:04)
[2016-12-16] MEDS: ASPIRIN 325 MG TABLET PO SCH (09:31)
[2016-12-16] MEDS: DOCUSATE SODIUM 100 MG CAPSULE PO SCH ×2 (09:31→21:46)
[2016-12-16] MEDS: VALSARTAN 160 MG TABLET PO SCH (09:31)
[2016-12-16] MEDS: MINOXIDIL 2.5 MG TABLET PO SCH (09:32)
[2016-12-16] MEDS: amLODIPine 10 MG TABLET PO SCH (09:32)
[2016-12-16] MEDS: ENOXAPARIN 30 MG/0.3 ML SYRINGE SUBCUT SCH (09:32)
[2016-12-16] MEDS: PANTOPRAZOLE 40 MG TABLET PO SCH (09:32)
[2016-12-16] MEDS: ALLOPURINOL 100 MG TABLET PO SCH (09:32)
--- NOTE | 2016-12-16 09:52 | Operative Note ---
Date of procedure: 12/16/16 Pre-op diagnosis: Renal failure Post-op diagnosis: same Procedure: Preoperative diagnosis Renal failure with need for hemodialysis access Postoperative diagnosis Same Procedures performed 1. Right internal jugular vein tunneled hemodialysis catheter placement 2. Ultrasound guidance and interpretation of images 3. Fluoroscopic guidance and interpretation of images Findings The right internal jugular vein is compressible and it was accessed for hemodialysis access. The tip of the catheter was place in the right atrium. Patient tolerated procedure well and both ports worked well. Complications none apparent Specimen None Indications Renal failure with need for access for hemodialysis Description of procedure The patient was taken to the operating room and transferred to the operating table in the supine position. Pressure points are padded and SCDs placed lower extremity. Monitored anesthesia was administered and the neck was prepped and draped sterile fashion using chloride same. Preoperative antibiotics were administered and a timeout was performed. Ultrasound was used to identify the internal jugular vein and local anesthetic was infiltrated around the vein. Local anesthetic was also administered around the planned tract site down to the anterior chest wall below the clavicle. The vein was accessed on first stick and nonpulsatile venous blood was obtained. A wire was placed using Seldinger technique. An incision was made alongside the wire using a long blade scalpel and a separate incision below the clavicle was made with an 11 blade scalpel. A 19 cm catheter was tunneled from the chest incision into the neck wound and a dilator peel-away sheath was placed over the wire. The wire and dilator was removed and the catheter was placed to the peel-away sheath. The catheter was secured in place in the right atrium on fluoroscopic images. Both returned blood easily and were flushed with heparin. The catheter was secured in place using 3-0 nylon sutures and the neck incision was closed with 3 -0 nylon suture. Sterile dressings were applied. The patient was awakened from anesthesia and transferred to recovery. Postoperative plan Begin hemodialysis and obtained chest x-ray postop Implants: 19cm tunneled hemodialysis catheter Anesthesia: MAC, local Surgeon / Physician: William Gorman Estimated blood loss: minimal Specimens: none sent Condition: stable Disposition: PACU Results - Labs CBC & BMP: 12/16/16 06:35 12/16/16 06:35 Discharge Plan - Discharge Medications No Action Carvedilol [Coreg] 25 mg PO BID #60 tablet Furosemide Tab [Lasix Tab] 160 mg PO BID DIURETIC #120 tablet metOLazone [Zaroxolyn] 5 mg PO DAILY #30 tablet Potassium Chloride Cap/Tab [K Dur] 20 meq PO BID #60 tablet Spironolactone [Aldactone] 25 mg PO BID #60 tablet Allopurinol 100 mg PO DAILY #30 tablet cloNIDine TAB [Catapres Tab] 0.3 mg PO TID #90 tablet Valsartan [Diovan] 320 mg PO DAILY #30 tablet amLODIPine [Norvasc] 10 mg PO DAILY #30 tablet cloNIDine 0.3 MG/24 HR PATCH [Fuwqzmyk-PBC-9 Patch] 1 patch TRANSDERM Q7DAY # 4 patch Minoxidil [Loniten] 5 mg PO DAILY #60 tablet hydrALAZINE TAB [Apresoline Tab] 100 mg PO TID #90 tablet - Follow Up or Referral Follow Up: Ilan Blackwell MD [Physician] - - Forms/Instructions
--- NOTE | 2016-12-16 10:03 | Anesthesia Post-Op ---
Anesthesia Post OP - Post Ansesthetic Evaluation Patient seen in post op: Yes Resp: within normal limits CV: within normal limits Mental: within normal limits Temp: within normal limits [id number]: within normal limits Nausea and Vomiting: within normal limits Pain: within normal limits
[2016-12-16] MEDS ORDERED: SODIUM CHLORIDE 0.9% 100 ML IV ONE (10:07)
[2016-12-16] MEDS ORDERED: MIDAZOLAM 2 MG/2 ML VIAL ONE (10:07)
[2016-12-16] MEDS ORDERED: fentaNYL 100 MCG/2 ML VIAL ONE (10:07)
--- NOTE | 2016-12-16 10:13 | XRay Report ---
Portable chest Date:12/16/2016 Clinical history: Dialysis catheter placement Comparison: 12/14/2016 Technique: Portable AP sitting chest Findings: Persistent cardiomegaly with interval insertion of right IJ venous dialysis catheter with the tip projects in the right atrium. No pneumothorax. No acute parenchymal findings are noted with persistent degenerative changes. Impression: Satisfactory insertion of right IJ venous dialysis catheter with no pneumothorax or significant interstitial edema. PROCEDURE INTERPRETED AT [facility] DEPARTMENT OF RADIOLOGY Final Report Signed by: Dr. Kasandra Johnson
--- NOTE | 2016-12-16 12:07 | Dialysis Note ---
Dialysis Note - Dialysis Note Patient seen on dialysis tolerated the procedure. Blood pressure is noted to be 150/80. Cardiovascular regular rate. Lungs clear to auscultation. Abdomen soft.
[2016-12-16] MEDS ORDERED: HEPARIN 10,000 UNIT/10 ML VIAL IV SCH (13:00)
--- NOTE | 2016-12-16 16:26 | Interventional Radiology Rpt ---
IR fluoro guide cv cath Clinical Information: Intraoperative fluoroscopy for Dialysis catheter placement. Comparison: None Attending surgeon: Sherif Total fluoroscopy time: 4.5 seconds. Findings: Intraoperative fluoroscopic images demonstrate right dialysis catheter placement. Attending surgeon reviewed the images at the time of the procedure. Impression: Intraoperative fluoroscopy as detailed above. PROCEDURE INTERPRETED AT [facility] DEPARTMENT OF RADIOLOGY Final Report Signed by: Colt Keith
--- NOTE | 2016-12-16 16:34 | Hospitalist Progress Note ---
Assessment and Plan (1) End stage renal disease due to hypertension Status: Acute Assessment and plan: 1)ESRD- he has started dialysis and has a tunneled catheter. Nephrology directing his care. 2)HTN- home meds restarted and BP looks better. Expect improvement with dialysis. 3)hypoxia- he is to have sleep study in [facility]. Chronic resp failure due to OHS, LALITO, and CHF. Current Visit: Yes Hospitalist: Subjective Interval history: MR Melgar had Tessio catheter placed today and then had dialysis which he tolerated. He denies shortness of breath or nausea. He is sore at the site of the catheter placement. Exam - Constitutional Vitals: Period Temp Pulse Resp BP Sys/Potter Pulse Ox Last 24 Hr 96.5 F-97.8 F 57-73 16-20 108-155/65-92 90-100 General appearance: no acute distress, morbidly obese - Eye Eye exam: Present: EOMI. Absent: scleral icterus - Respiratory Respiratory exam: Present: clear to auscultation bilaterally - Cardiovascular Cardiovascular exam: Present: regular rate and rhythm - GI/Abdominal GI/Abdominal exam: Present: normal bowel sounds, soft - Extremities Exam Extremities exam: Present: edema Results - Labs CBC & BMP: 12/16/16 06:35 12/16/16 06:35 Lab Results: I have reviewed the past 24 hour labs Specialty Discharge - Follow Up or Referrals Follow up with: Ilan Blackwell MD [Physician] -
--- NOTE | 2016-12-16 17:33 | Sleep Medicine Progress Note ---
Assessment and Plan (1) Unspecified sleep apnea Status: Acute Assessment and plan: Plans are to proceed with home sleep testing tonight and follow-up on those results tomorrow and institute auto titration CPAP if sleep apnea is present. Current Visit: Yes (2) CHF with left ventricular diastolic dysfunction, NYHA class 2 Status: Chronic Current Visit: Yes Sleep Medicine Subjective Interval history: We did clear with the admitting physician, that it was okay to study this patient off oxygen with HST. This will be scheduled for tonight. I informed the patient of our plans to proceed with home sleep apnea testing tonight. Exam (Progress Note) - Constitutional Vitals: Period Temp Pulse Resp BP Sys/Potter Pulse Ox Last 24 Hr 96.5 F-97.8 F 57-73 16-20 108-155/65-92 90-100 Exam: Patient was asleep when I entered the room and clearly was snoring. Results - Labs CBC & BMP: 12/16/16 06:35 12/16/16 06:35 Lab Results: I have reviewed the past 24 hour labs Specialty Discharge - Follow Up or Referrals Follow up with: Ilan Blackwell MD [Physician] -
[2016-12-17] MEDS: ALLOPURINOL 100 MG TABLET PO SCH ×2 (07:43→12:13)
[2016-12-17] MEDS: ENOXAPARIN 30 MG/0.3 ML SYRINGE SUBCUT SCH ×2 (07:43→12:13)
[2016-12-17] MEDS: DOCUSATE SODIUM 100 MG CAPSULE PO SCH ×3 (07:44→21:42)
[2016-12-17] MEDS: ASPIRIN 325 MG TABLET PO SCH ×2 (07:44→12:12)
[2016-12-17] MEDS: PANTOPRAZOLE 40 MG TABLET PO SCH ×2 (07:44→12:13)
--- NOTE | 2016-12-17 09:30 | Dialysis Note ---
Dialysis Note - Dialysis Note Patient seen on dialysis. Tolerated procedure. Blood pressure 117/67 Cardiovascular regular rate. Lungs clear to auscultation. Abdomen is soft.
--- NOTE | 2016-12-17 12:31 | Sleep Medicine Progress Note ---
Assessment and Plan (1) Unspecified sleep apnea Status: Acute Assessment and plan: Patient does have evidence of obstructive sleep apnea. We will set him up for auto titration CPAP tonight and follow-up results. Current Visit: Yes (2) CHF with left ventricular diastolic dysfunction, NYHA class 2 Status: Chronic Current Visit: Yes Sleep Medicine Subjective Interval history: Patient did undergo HST evaluation last night did have evidence of sleep apnea with a diagnostic AHI of 13. He did have O2 desaturation into the low 80s. I am surprised sleep apnea was not worse than what we found. I reviewed his sleep study findings with him to his understanding. We will start him on auto titration CPAP tonight and follow-up his results. Exam (Progress Note) - Constitutional Vitals: Period Temp Pulse Resp BP Sys/Potter Pulse Ox Last 24 Hr 96.9 F-98.3 F 62-73 16-90 103-132/32-75 90-95 Exam: Patient seems more alert and responsive than the last 2 days. Results - Labs CBC & BMP: 12/16/16 06:35 12/16/16 06:35 Lab Results: I have reviewed the past 24 hour labs Specialty Discharge - Follow Up or Referrals Follow up with: Ilan Blackwell MD [Physician] -
--- NOTE | 2016-12-17 14:33 | Hospitalist Progress Note ---
<Fernando Hajiesperanza - Last Filed: 12/17/16 14:33> Assessment and Plan (1) Acute on chronic renal failure Status: Chronic Assessment and plan: Pt. bun/creatinine today is 116/10.3. Nephrology has been consulted and has seen. Pt. will need access for dialysis. Avoid nephrotoxic agents. Daily bmps. Current Visit: Yes Qualifiers: Chronic kidney disease stage: stage 5, not on chronic dialysis (2) Dehydration Status: Acute Current Visit: Yes (3) Hypertension Status: Chronic Assessment and plan: Restart home meds. Current Visit: Yes Qualifiers: Hypertension type: essential hypertension Qualified Code(s): I10 - Essential (primary) hypertension Exam - Constitutional Vitals: Period Temp Pulse Resp BP Sys/Potter Pulse Ox Last 24 Hr 96.9 F-98.3 F 62-73 16-90 103-132/32-75 90-95 Results - Labs CBC & BMP: 12/16/16 06:35 12/16/16 06:35 Lab Results: I have reviewed the past 24 hour labs Specialty Discharge - Follow Up or Referrals Follow up with: Ilan Blackwell MD [Physician] - <Sloane Roberts - Last Filed: 12/17/16 16:43> Assessment and Plan (1) End stage renal disease due to hypertension Status: Acute Assessment and plan: continue HD per nephrology. Current Visit: Yes Hospitalist: Subjective Interval history: I saw Mr Melgar on HD and he was doing well. He will continue to have dialysis per nephrology and they are planning for more permanent access placement. He denied any problems. Exam - Constitutional Vitals: Period Temp Pulse Resp BP Sys/Potter Pulse Ox Last 24 Hr 96.9 F-98.3 F 62-69 16-90 103-131/32-75 90-95 General appearance: no acute distress, morbidly obese - Eye Eye exam: Present: EOMI. Absent: scleral icterus - Respiratory Respiratory exam: Present: clear to auscultation bilaterally - Cardiovascular Cardiovascular exam: Present: regular rate and rhythm - GI/Abdominal GI/Abdominal exam: Present: normal bowel sounds, soft - Extremities Exam Extremities exam: Absent: edema Results - Labs CBC & BMP: 12/16/16 06:35 12/16/16 06:35
[2016-12-17] MEDS: CARVEDILOL 25 MG TABLET PO SCH ×3 (14:37→21:48)
[2016-12-17] MEDS: amLODIPine 10 MG TABLET PO SCH (14:38)
[2016-12-17] MEDS: MINOXIDIL 2.5 MG TABLET PO SCH (14:38)
[2016-12-17] MEDS: VALSARTAN 160 MG TABLET PO SCH (14:38)
--- NOTE | 2016-12-17 14:53 | Cardiology Progress Note ---
I, Chloe Chadwick RN, am scribing for, and in the presence of, Ilan Blackwell MD 14:53. Assessment and Plan (1) Abnormal EKG Status: Chronic Assessment and plan: Initial assessment and plan December 15, 2016: The abnormal EKG as he mentioned changes since yesterday. However he has no symptoms and his troponins are negative. I doubt this is ACS. I believe it is more of a metabolic changed from his renal failure and electrolyte findings. Plan/rec: We'll get some other serial enzymes and see if positive. If so will consider ischemia If not, I doubt is ischemia and more is toxic metabolic or LVH related. We'll keep him nothing by mouth after midnight If he seems to be stable tomorrow he may proceed with the placement of a dialysis catheter and dialysis. I started him on aspirin 325 mg by mouth now that 81 milligrams daily starting tomorrow He is on a beta hedy I conferred care with his surgeon and anesthesiologist. They voice understanding of my overall assessment Assessment and plan December 16, 2016: Troponins, serial, overnight are negative EKG appears to be more back to his baseline incomplete IVCD He could be the EKG change that was transient was related to a change in IVCD or could be metabolic disarray from his renal insufficiency Okay with me to proceed with placement of the dialysis catheter I conferred care with Dr. William Gorman. 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 Melgar is a 51 year old male with a history of renal failure and hypertension. General surgery was consulted for placement of tunneled dialysis catheter. Cardiology was consulted because of EKG changes. BUN and creatinine today is 110 and 10.3. He denies chest pain. He does report some shortness of breath at rest as well as orthopnea. He has reports that he snores and stops breathing while sleeping as well as fatigue. His blood sugar pressures have been elevated this admission, this afternoon it is better 133/66. Troponin on admission was negative. Echocardiogram done November 2016 with ejection fraction of 65% in 2-3+ concentric LVH. December 16, 2016: Mr. Melgar is seen resting in bed no acute distress with family at bedside. He denies any chest pain or shortness of breath. He is status post right internal jugular vein tunneled hemodialysis catheter placed by Dr. Gorman today. Dressing noted to right upper chest. He has dialyzed today. Vital signs been stable. Sleep medicine has evaluated patient. Review of systems: Cardiovascular: Denies chest pain or palpitations. Respiratory, denies shortness of breath. Exam (Progress Note) - Constitutional Vitals: Period Temp Pulse Resp BP Sys/Potter Pulse Ox Last 24 Hr 96.5 F-97.9 F 57-68 16-20 108-155/65-92 91-100 General appearance: no acute distress, under weight - Head Head exam: Absent: abrasion, hematoma - Eye Eye exam: Absent: periorbital swelling, laceration to eyelids Pupils: Present: SHARI - Respiratory Respiratory exam: Present: clear to auscultation bilaterally. Absent: accessory muscle use, chest wall tenderness - Cardiovascular Cardiovascular exam: Present: regular rate and rhythm. Absent: diastolic murmur , systolic murmur - GI/Abdominal GI/Abdominal exam: Present: normal bowel sounds, soft. Absent: distended, tenderness - Extremities Exam Extremities exam: Present: calf tenderness, edema (1+ to bilateral lower extremities) - Neurological Exam Neurological exam: Present: alert, oriented X3 - Psychiatric Psychiatric exam: Present: normal affect, normal mood - Skin Skin exam: Present: warm, dry, other (Dressing noted to right upper chest status post dialysis catheter placement) Result/EKG - Labs CBC & BMP: 12/16/16 06:35 12/16/16 06:35 Lab Results: I have reviewed the past 24 hour labs Labs: Laboratory Results - last 24 hr 12/15/16 12/15/16 12/16/16 17:27 22:30 06:35 WBC RBC Hgb Hct MCV MCH MCHC RDW Plt Count MPV Neut % (Auto) Lymph % (Auto) [place] % (Auto) Eos % (Auto) Baso % (Auto) Neut # (Auto) Lymph # (Auto) [place] # (Auto) Eos # (Auto) Baso # (Auto) Immature Gran % Nucleated RBC % Immature Gran # Nucleated RBCs # Immature Plt Fraction Sodium Potassium Chloride Carbon Dioxide Anion Gap BUN Creatinine GFR Calculation BUN/Creatinine Ratio Glucose Calculated Osmolality Calcium Total Bilirubin AST ALT Alkaline Phosphatase Total Creatine Kinase 69 65 80 D CK-MB (CK-2) 1.3 1.0 1.6 Troponin I 0.023 0.026 0.019 Total Protein Albumin Globulin Albumin/Globulin Ratio 12/16/16 12/16/16 06:35 06:35 WBC 5.3 RBC 4.97 Hgb 12.8 L Hct 41.1 L MCV 82.7 L MCH 26 L MCHC 31.1 L RDW 14.2 Plt Count 156 MPV 10.3 Neut % (Auto) 69.7 Lymph % (Auto) 13.9 L [place] % (Auto) 12.9 H Eos % (Auto) 2.3 Baso % (Auto) 0.8 Neut # (Auto) 3.7 Lymph # (Auto) 0.7 L [place] # (Auto) 0.7 Eos # (Auto) 0.1 Baso # (Auto) 0.0 Immature Gran % 0.4 Nucleated RBC % 0.0 Immature Gran # 0.02 Nucleated RBCs # 0.00 Immature Plt Fraction 0.0 Sodium 136 Potassium 4.3 Chloride 98 Carbon Dioxide 27 Anion Gap 15.3 H BUN 120 H D Creatinine 10.10 H GFR Calculation 8 BUN/Creatinine Ratio 11.00 Glucose 92 Calculated Osmolality 309.0 H Calcium 9.3 Total Bilirubin 1.10 H AST 17 ALT 22 Alkaline Phosphatase 80 Total Creatine Kinase CK-MB (CK-2) Troponin I Total Protein 7.5 Albumin 3.4 Globulin 4.1 H Albumin/Globulin Ratio 0.8 L - Diagnostic Findings Procedure: Chest x-ray: report reviewed by me - EKG EKG results: interpreted by ia EKG shows: sinus rhythm Specialty Discharge - Follow Up or Referrals Follow up with: Ilan Blackwell MD [Physician] - I, Ilan Blackwell MD, personally performed the services described in this documentation, ascribed by Chloe Chadwick RN in my presence, and it is both accurate and complete 453 .
--- NOTE | 2016-12-17 14:56 | Cardiology Progress Note ---
I, Chloe Chadwick RN, am scribing for, and in the presence of, Ilan Blackwell MD 14:56. Assessment and Plan (1) Abnormal EKG Status: Chronic Assessment and plan: Initial assessment and plan December 15, 2016: The abnormal EKG as he mentioned changes since yesterday. However he has no symptoms and his troponins are negative. I doubt this is ACS. I believe it is more of a metabolic changed from his renal failure and electrolyte findings. Plan/rec: We'll get some other serial enzymes and see if positive. If so will consider ischemia If not, I doubt is ischemia and more is toxic metabolic or LVH related. We'll keep him nothing by mouth after midnight If he seems to be stable tomorrow he may proceed with the placement of a dialysis catheter and dialysis. I started him on aspirin 325 mg by mouth now that 81 milligrams daily starting tomorrow He is on a beta hedy I conferred care with his surgeon and anesthesiologist. They voice understanding of my overall assessment Assessment and plan December 17, 2016: The patient appears better after dialysis Sleep medicines has seen him. They also believe he likely has untreated sleep apnea. I conferred care with Dr. Nataly Siddiqi yesterday about the patient. Will treat the sleep apnea Continue the beta-hedy Continue the carvedilol Follow serial EKGs I discussed with the patient that after he is out of this acute episode, I will see him back in follow-up and then at some point we will consider doing a stress test or a Lexiscan Cardiolite study. 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 Melgar is a 51 year old male with a history of renal failure and hypertension. General surgery was consulted for placement of tunneled dialysis catheter. Cardiology was consulted because of EKG changes. BUN and creatinine today is 110 and 10.3. He denies chest pain. He does report some shortness of breath at rest as well as orthopnea. He has reports that he snores and stops breathing while sleeping as well as fatigue. His blood sugar pressures have been elevated this admission, this afternoon it is better 133/66. Troponin on admission was negative. Echocardiogram done November 2016 with ejection fraction of 65% in 2-3+ concentric LVH. December 16, 2016: Mr. Melgar is seen resting in bed no acute distress with family at bedside. He denies any chest pain or shortness of breath. He is status post right internal jugular vein tunneled hemodialysis catheter placed by Dr. Gorman today. Dressing noted to right upper chest. He has dialyzed today. Vital signs been stable. Sleep medicine has evaluated patient. December 17, 2016: Mr. Melgar is seen while at dialysis. He denies any chest pain, shortness of breath, palpitations, or dizziness. Vital signs been stable. EKG this morning showed sinus rhythm, heart rate of 63. Review of systems: Cardiovascular: Denies chest pain or palpitations. Respiratory, denies shortness of breath. Exam (Progress Note) - Constitutional Vitals: Period Temp Pulse Resp BP Sys/Potter Pulse Ox Last 24 Hr 96.9 F-98.3 F 62-73 17-90 103-132/32-75 90-95 Exam: General appearance: no acute distress, under weight - Head Head exam: Absent: abrasion, hematoma - Eye Eye exam: Absent: periorbital swelling, laceration to eyelids Pupils: Present: SHARI - Respiratory Respiratory exam: Present: clear to auscultation bilaterally. Absent: accessory muscle use, chest wall tenderness - Cardiovascular Cardiovascular exam: Present: regular rate and rhythm. Absent: diastolic murmur , systolic murmur - GI/Abdominal GI/Abdominal exam: Present: normal bowel sounds, soft. Absent: distended, tenderness - Extremities Exam Extremities exam: Present: calf tenderness, edema (1+ to bilateral lower extremities) - Neurological Exam Neurological exam: Present: alert, oriented X3 - Psychiatric Psychiatric exam: Present: normal affect, normal mood - Skin Skin exam: Present: warm, dry, other (Dressing noted to right upper chest) Result/EKG - Labs CBC & BMP: 12/16/16 06:35 12/16/16 06:35 Lab Results: I have reviewed the past 24 hour labs - Diagnostic Findings Procedure: Chest x-ray: report reviewed by me - EKG EKG results: interpreted by me EKG shows: sinus rhythm Specialty Discharge - Follow Up or Referrals Follow up with: Ilan Blackwell MD [Physician] - I, Ilan Blackwell MD, personally performed the services described in this documentation, ascribed by Chloe Chadwick RN in my presence, and it is both accurate and complete .
--- NOTE | 2016-12-17 15:42 | Order Completion Report ---
See report scanned to EMR
[2016-12-18 05:54] LABS: Calcium 8.9 MG/DL (8.5-10.1); Magnesium 2.8 MG/DL (1.8-2.4); Osmolality,Calculated 289.1 MOS/KG (273-304); Potassium 4.3 MMOL/L (3.5-5.1)
[2016-12-18 06:33] LABS: Basophils % 0.8 % (0.0-0.8); Eosinophils # 0.3 10*3/uL (0.0-0.87); Eosinophils % 5.7 % (0.00-10.9); Hematocrit 40.2 VOL% (42.0-52.0); Hemoglobin 12.5 GM/DL (14.0-18.0); Immature Granulocytes % 0.4 %; Immature Granulocytes Absolute 0.02 #; Lymphocytes # 0.9 10*3/uL (1.4-4.0); Lymphocytes % 19.5 % (21.2-54.2); Mean Corpuscular HGB Conc 31.1 GM/DL (32-36); Mean Corpuscular Hemoglobin 26 PG (27-34); Mean Corpuscular Volume 83.1 FL (87-102); Mean Platelet Volume 12.3 FL (9.6-12.0); Monocytes # 0.9 10*3/uL (0.11-0.8); Monocytes % 19.1 % (1.7-12.7); Neutrophils # 2.6 10*3/uL (1.4-7.4); Neutrophils % 54.5 % (38.7-73.9); Platelet Count 140 T/CUMM (130-400); Red Blood Count 4.84 MC/CUMM (3.8-5.5); Red Cell Distribution Width 14.3 % (9.3-17.3); White Blood Count 4.8 T/CUMM (4-12)
[2016-12-18 07:36] LABS: Eosinophils 1 % (0-10); Hypochromasia Slight; Lymphocytes 17 % (20-55); Microcytosis 1+; Platelet Estimate Decreased; Polychromasia Slight; Segmented Neutrophils 68 % (50-85); Total Cells Counted 100
[2016-12-18 07:46] VITALS: BP 142/70
[2016-12-18] MEDS: CARVEDILOL 25 MG TABLET PO SCH (08:33)
[2016-12-18] MEDS: VALSARTAN 160 MG TABLET PO SCH (08:34)
[2016-12-18] MEDS: ENOXAPARIN 30 MG/0.3 ML SYRINGE SUBCUT SCH (08:34)
[2016-12-18] MEDS: amLODIPine 10 MG TABLET PO SCH (08:34)
[2016-12-18] MEDS: MINOXIDIL 2.5 MG TABLET PO SCH (08:34)
[2016-12-18] MEDS: ASPIRIN 325 MG TABLET PO SCH (08:34)
[2016-12-18] MEDS: PANTOPRAZOLE 40 MG TABLET PO SCH (08:34)
[2016-12-18] MEDS: DOCUSATE SODIUM 100 MG CAPSULE PO SCH (08:34)
[2016-12-18] MEDS: ALLOPURINOL 100 MG TABLET PO SCH (08:35)
--- NOTE | 2016-12-18 09:05 | Dialysis Note ---
Dialysis Note - Dialysis Note Mr. Arriaga is seen at the onset of his dialysis. He is doing well and is using his dialysis catheter. He is in no distress and our plan is to continue to support with dialysis.
--- NOTE | 2016-12-18 10:11 | Discharge Summary ---
<Olayinka Haji - Last Filed: 12/18/16 14:19> Hospital Course - Hospital Course Hospital Course: Mr. Rosario is a 51 yr old male with a history of CHF, hypertension, and chronic renal failure that presented to the ED on 12/14 as a referral from his primary care provider Dr. Duvall for further evaluation of elevated serum creatinine and magnesium. Patient had been recently hospitalized on 12/02 for a CHF exacerbation. During the hospitalization his BUN and creatinine increased was slowly declined. At discharge, patient was instructed to follow-up with cognos administrator Dr. Galvez. Before the patient had a chance to follow he was seen and evaluated by his PCP for stroke like symptoms and diagnosed with a CVA. Patient was discharged from that facility recently and there were reports of increasing lethargy since that time. Pt. followed up with his PCP and was subsequently referred to our ED. On exam in the ED, patient was noted to have bun/creatinine of 107/10.4 with mag of 3.6. CXR showed cardiomegaly. He was admitted to the hospitalist service for further evaluation treatment. Nephrology was consulted. Renal ultrasound was obtained. General surgery was consulted for placement of dialysis catherer. Pt. began dialysis on 12/16. He dialyzed 12/16, 12/17, and 12/18. Pt. was also seen by I have seen and examined MR Rosario aond agree with the discahrge summary above. He is doign well and outpatient dialysis has been arranged for M/W/. He states that he is ready to go home. Stop his diuretics at discharge and continue his current antiHTN meds for now- they may require adjustment as an outpatient as dialysis continues. HE will follow up in outpatient sleep clinic for CPAP titration. Follow up with his PCP in a week. Diagnosis - Discharge Diagnosis (1) Acute on chronic renal failure Status: Chronic (2) Dehydration Status: Acute (3) Hypertension Status: Chronic Specialty Discharge - Follow Up or Referrals Follow up with: Ilan Blackwell MD [Physician] - 12/30/16 2:20 pm Brandie Siddiqi MD [Physician] - 01/11/17 7:15 pm (OUTPATIENT SLEEP STUDY ) Discharge Plan - Discharge Data Disposition: Disch To Home/Self Care - Discharge Medications New Aspirin Tab 325 mg PO DAILY tablet Continue Carvedilol [Coreg] 25 mg PO BID #60 tablet Spironolactone [Aldactone] 25 mg PO BID #60 tablet Allopurinol 100 mg PO DAILY #30 tablet cloNIDine TAB [Catapres Tab] 0.3 mg PO TID #90 tablet Valsartan [Diovan] 320 mg PO DAILY #30 tablet amLODIPine [Norvasc] 10 mg PO DAILY #30 tablet cloNIDine 0.3 MG/24 HR PATCH [[id number] Patch] 1 patch TRANSDERM Q7DAY # 4 patch Minoxidil [Loniten] 5 mg PO DAILY #60 tablet hydrALAZINE TAB [Apresoline Tab] 100 mg PO TID #90 tablet Discontinued Furosemide Tab [Lasix Tab] 160 mg PO BID DIURETIC #120 tablet metOLazone [Zaroxolyn] 5 mg PO DAILY #30 tablet Potassium Chloride Cap/Tab [K Dur] 20 meq PO BID #60 tablet - Follow Up or Referral Follow Up: Ilan Blackwell MD [Physician] - 12/30/16 2:20 pm Brandie Siddiqi MD [Physician] - 01/11/17 7:15 pm (OUTPATIENT SLEEP STUDY ) - Forms/Instructions Instructions: Dehydration (DC), Dialysis Diet (GEN), End-Stage Kidney Disease ( GEN) Exam - Constitutional Vitals: Period Temp Pulse Resp BP Sys/Potter Pulse Ox Last 24 Hr 97.5 F-98.3 F 61-70 16-20 107-142/66-71 91-95 Discharge Results Labs on day of discharge: Labs from last 24 hours 12/18/16 12/18/16 04:10 04:10 WBC 4.8 RBC 4.84 Hgb 12.5 L Hct 40.2 L MCV 83.1 L MCH 26 L MCHC 31.1 L RDW 14.3 Plt Count 140 MPV 12.3 H Neut % (Auto) 54.5 Lymph % (Auto) 19.5 L [place] % (Auto) 19.1 H Eos % (Auto) 5.7 Baso % (Auto) 0.8 Neut # (Auto) 2.6 Lymph # (Auto) 0.9 L [place] # (Auto) 0.9 H Eos # (Auto) 0.3 Baso # (Auto) 0.0 Total Counted 100 Immature Gran % 0.4 Nucleated RBC % 0.0 Immature Gran # 0.02 Segmented Neutrophils 68 Lymphocytes 17 L Monocytes 14 Eosinophils 1 Nucleated RBCs # 0.00 Platelet Estimate Decreased Immature Plt Fraction 0.0 Polychromasia Slight Hypochromasia Slight Microcytosis 1+ Sodium 135 L Potassium 4.3 Chloride 98 Carbon Dioxide 22 Anion Gap 19.3 H BUN 72 H Creatinine 8.10 H GFR Calculation 10 BUN/Creatinine Ratio 8.00 Glucose 84 Calculated Osmolality 289.1 Calcium 8.9 Magnesium 2.8 H DS: Provider Date of admission: 12/14/16 22:06 Primary care physician: Nonstaff Physician Attending physician on admission: Raiza Gooden MD Consults: 12/14/16 23:11 Consult to Physician [CONS] Routine Comment: acute on chronic renal failure; hx chf Consulting Provider: Fredrick Aparicio Jr. Person Notified: Venus Date Notified: 12/15/16 Time Notified: 08:40 12/15/16 09:09 Consult to Physician [CONS] Routine Comment: dialysis catheter Consulting Provider: William Gorman When should Consulting Provider be notified: Now Person Notified: [email or web address] Date Notified: 12/15/16 Time Notified: 10:09 12/15/16 09:10 Consult to Case Mgmt/Social Srvs [CONS] Routine Reason for Case Mgmt/Social Srvs: Dialysis Discharge Planning 12/15/16 15:22 Consult to Physician [CONS] Routine Comment: Consulting Provider: Neo Hunter Person Notified: [email or web address] Date Notified: 12/15/16 Time Notified: 15:33 12/15/16 16:56 Consult to Sleep Center [CONS] Routine Reason for Sleep Center: Sleep Center Physician Consult Comment: snores daytime somnolence stops breathing while sleeping 12/16/16 13:59 Consult to Dietitian [CONS] Routine Reason for Dietitian: Dietary Consult Diet Instruction Consult Comment: New Dialysis Patient, DM, HTN, CHF, Renal Diet Discharging clinician: Olayinka Haji NP <Sloane Roberts - Last Filed: 12/18/16 16:35> Hospital Course - Time spent with patient Time with patient DS: Greater than 30 minutes (36 minutes were required for discharge planning , medicine reconciliation and documentation) Diagnosis - Discharge Diagnosis (1) End stage renal disease due to hypertension Status: Chronic (2) ESRD (end stage renal disease) on dialysis Status: Chronic (3) LALITO (obstructive sleep apnea) Status: Chronic Specialty Discharge - Speciality Discharge Instructions Nephrology Instructions: continue outpatient dialysis Discharge Plan - Discharge Data Condition at Discharge: Stable Discharge Diet: diabetic diet, heart healthy Activity: resume usual activities as tolerated Exam - Constitutional General appearance: no acute distress, morbidly obese - Eye Eye exam: Present: EOMI. Absent: scleral icterus - Respiratory Respiratory exam: Present: clear to auscultation bilaterally - Cardiovascular Cardiovascular exam: Present: regular rate and rhythm - GI/Abdominal GI/Abdominal exam: Present: normal bowel sounds, soft. Absent: tenderness - Extremities Exam Extremities exam: Absent: edema
--- NOTE | 2016-12-18 11:41 | Sleep Medicine Progress Note ---
Assessment and Plan (1) Unspecified sleep apnea Status: Acute Assessment and plan: This patient does have uncontrolled sleep apnea with auto titration CPAP. We need to bring him in the lab for titration. Current Visit: Yes (2) CHF with left ventricular diastolic dysfunction, NYHA class 2 Status: Chronic Current Visit: Yes Sleep Medicine Subjective Interval history: Patient did sleep with CPAP last night but despite over 8 hours of sleep, he still had uncontrolled sleep apnea with an AHI of over 15 on CPAP. We need to get him in the sleep lab for titration study. We will set this up at the next available date. Exam (Progress Note) - Constitutional Vitals: Period Temp Pulse Resp BP Sys/Potter Pulse Ox Last 24 Hr 97.5 F-98.3 F 61-70 16-20 107-142/66-74 91-95 Exam: Patient seems more alert and responsive than the last 2 days. Results - Labs CBC & BMP: 12/18/16 04:10 12/18/16 04:10 Lab Results: I have reviewed the past 24 hour labs Specialty Discharge - Follow Up or Referrals Follow up with: Ilan Blackwell MD [Physician] - 12/30/16 2:20 pm
--- NOTE | 2016-12-18 15:51 | Order Completion Report ---
See report scanned to EMR
--- NOTE | 2016-12-19 00:16 | Cardiology Progress Note ---
I, Chloe Chadwick RN, am scribing for, and in the presence of, Ilan Blackwell MD 00:15. Assessment and Plan (1) Abnormal EKG Status: Chronic Assessment and plan: Initial assessment and plan December 15, 2016: The abnormal EKG as he mentioned changes since yesterday. However he has no symptoms and his troponins are negative. I doubt this is ACS. I believe it is more of a metabolic changed from his renal failure and electrolyte findings. Plan/rec: We'll get some other serial enzymes and see if positive. If so will consider ischemia If not, I doubt is ischemia and more is toxic metabolic or LVH related. We'll keep him nothing by mouth after midnight If he seems to be stable tomorrow he may proceed with the placement of a dialysis catheter and dialysis. I started him on aspirin 325 mg by mouth now that 81 milligrams daily starting tomorrow He is on a beta hedy I conferred care with his surgeon and anesthesiologist. They voice understanding of my overall assessment Assessment and plan December 17, 2016: The patient appears better after dialysis Sleep medicines has seen him. They also believe he likely has untreated sleep apnea. I conferred care with Dr. Nataly Siddiqi yesterday about the patient. Will treat the sleep apnea Continue the beta-hedy Continue the carvedilol Follow serial EKGs I discussed with the patient that after he is out of this acute episode, I will see him back in follow-up and then at some point we will consider doing a stress test or a Lexiscan Cardiolite study. He voices understanding and agrees with the plan Blood pressure is good Tolerating dialysis well EKG is back to his baseline We'll keep on his antihypertensive medication Home you say so with follow-up. I will see him in the next 2-4 weeks to evaluate. At that time I'll consider doing a TM/C Thank you for allowing me to take Mister melgar's care. 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 Blackwell Summary: Mr. Melgar is a 51 year old male with a history of renal failure and hypertension. General surgery was consulted for placement of tunneled dialysis catheter. Cardiology was consulted because of EKG changes. BUN and creatinine today is 110 and 10.3. He denies chest pain. He does report some shortness of breath at rest as well as orthopnea. He has reports that he snores and stops breathing while sleeping as well as fatigue. His blood sugar pressures have been elevated this admission, this afternoon it is better 133/66. Troponin on admission was negative. Echocardiogram done November 2016 with ejection fraction of 65% in 2-3+ concentric LVH. December 16, 2016: Mr. Melgar is seen resting in bed no acute distress with family at bedside. He denies any chest pain or shortness of breath. He is status post right internal jugular vein tunneled hemodialysis catheter placed by Dr. Gorman today. Dressing noted to right upper chest. He has dialyzed today. Vital signs been stable. Sleep medicine has evaluated patient. December 17, 2016: Mr. Melgar is seen while at dialysis. He denies any chest pain, shortness of breath, palpitations, or dizziness. Vital signs been stable. EKG this morning showed sinus rhythm, heart rate of 63. December 18, 2016: Mr. Melgar is followed for chronic stable conditions to include hypertension. He is being followed for a more acute condition of renal failure. This morning he denies any chest pain, shortness of breath, palpitations, dizziness. He is scheduled to dialyze again today. Vital signs been stable. His creatinine has improved, today it is 8.10. EKG this morning showed sinus rhythm with heart rate of 57. Review of systems: Cardiovascular: Denies chest pain or palpitations. Respiratory, denies shortness of breath. Exam (Progress Note) - Constitutional Vitals: Period Temp Pulse Resp BP Sys/Potter Pulse Ox Last 24 Hr 97.5 F-98.3 F 61-70 16-20 107-142/66-71 91-95 Exam: General appearance: no acute distress, under weight - Head Head exam: Absent: abrasion, hematoma - Eye Eye exam: Absent: periorbital swelling, laceration to eyelids Pupils: Present: SHARI - Respiratory Respiratory exam: Present: clear to auscultation bilaterally. Absent: accessory muscle use, chest wall tenderness - Cardiovascular Cardiovascular exam: Present: regular rate and rhythm. Absent: diastolic murmur , systolic murmur - GI/Abdominal GI/Abdominal exam: Present: normal bowel sounds, soft. Absent: distended, tenderness - Extremities Exam Extremities exam: Present: calf tenderness, edema (trace to bilateral lower extremities) - Neurological Exam Neurological exam: Present: alert, oriented X3 - Psychiatric Psychiatric exam: Present: normal affect, normal mood - Skin Skin exam: Present: warm, dry, other (Dressing noted to right upper chest) Result/EKG - Labs CBC & BMP: 12/18/16 04:10 12/18/16 04:10 Lab Results: I have reviewed the past 24 hour labs Labs: Laboratory Results - last 24 hr 12/18/16 12/18/16 04:10 04:10 WBC 4.8 RBC 4.84 Hgb 12.5 L Hct 40.2 L MCV 83.1 L MCH 26 L MCHC 31.1 L RDW 14.3 Plt Count 140 MPV 12.3 H Neut % (Auto) 54.5 Lymph % (Auto) 19.5 L [place] % (Auto) 19.1 H Eos % (Auto) 5.7 Baso % (Auto) 0.8 Neut # (Auto) 2.6 Lymph # (Auto) 0.9 L [place] # (Auto) 0.9 H Eos # (Auto) 0.3 Baso # (Auto) 0.0 Total Counted 100 Immature Gran % 0.4 Nucleated RBC % 0.0 Immature Gran # 0.02 Segmented Neutrophils 68 Lymphocytes 17 L Monocytes 14 Eosinophils 1 Nucleated RBCs # 0.00 Platelet Estimate Decreased Immature Plt Fraction 0.0 Polychromasia Slight Hypochromasia Slight Microcytosis 1+ Sodium 135 L Potassium 4.3 Chloride 98 Carbon Dioxide 22 Anion Gap 19.3 H BUN 72 H Creatinine 8.10 H GFR Calculation 10 BUN/Creatinine Ratio 8.00 Glucose 84 Calculated Osmolality 289.1 Calcium 8.9 Magnesium 2.8 H - EKG EKG results: interpreted by me EKG shows: sinus rhythm Specialty Discharge - Follow Up or Referrals Follow up with: Ilan Blackwell MD [Physician] - 12/30/16 2:20 pm Brandie Siddiqi MD [Physician] - 01/11/17 7:15 pm (OUTPATIENT SLEEP STUDY ) I, Ilan Blackwell MD, personally performed the services described in this documentation, ascribed by Chloe Chadwick RN in my presence, and it is both accurate and complete 015 .
== END 2016-12-18 15:09 | disposition home or self-care (01) | DRG 674 ==
LOC: N.ED 18:25 → SUATTDRO 22:06 → N.EDINP 22:06 → N.5E 22:23
PROVIDERS: ADMIT Hospitalist; ATTEND Internal Medicine

== ENCOUNTER 2016-12-20 21:25 | Inpatient (IN) ==
[2016-12-20] MEDS: DOPamine 800 MG/250 ML PREMIX IV SCH (21:25)
[2016-12-20] MEDS ORDERED: SODIUM CHLORIDE 0.9% 1,000 ML IV SCH (23:45)
[2016-12-20] MEDS ORDERED: ONDANSETRON 4 MG/2 ML VIAL IV PRN (23:57)
[2016-12-21] MEDS: PANTOPRAZOLE 40 MG TABLET PO SCH (04:48)
[2016-12-21 05:43] LABS: Basophils % 0.1 % (0.0-0.8); Eosinophils # 0.1 10*3/uL (0.0-0.87); Eosinophils % 0.9 % (0.00-10.9); Hematocrit 41.6 VOL% (42.0-52.0); Hemoglobin 13.3 GM/DL (14.0-18.0); Immature Granulocytes % 0.4 %; Immature Granulocytes Absolute 0.04 #; Lymphocytes # 0.9 10*3/uL (1.4-4.0); Lymphocytes % 9.4 % (21.2-54.2); Mean Corpuscular Hemoglobin 26 PG (27-34); Mean Corpuscular Volume 80.6 FL (87-102); Mean Platelet Volume 11.9 FL (9.6-12.0); Monocytes # 1.2 10*3/uL (0.11-0.8); Monocytes % 13.7 % (1.7-12.7); Neutrophils # 6.8 10*3/uL (1.4-7.4); Neutrophils % 75.5 % (38.7-73.9); Platelet Count 185 T/CUMM (130-400); Red Blood Count 5.16 MC/CUMM (3.8-5.5); Red Cell Distribution Width 13.9 % (9.3-17.3)
[2016-12-21 06:14] LABS: Calcium 9.1 MG/DL (8.5-10.1); Magnesium 3.1 MG/DL (1.8-2.4); Osmolality,Calculated 292.5 MOS/KG (273-304); Potassium 4.6 MMOL/L (3.5-5.1)
[2016-12-21] MEDS ORDERED: INFLUENZA VIRUS VACCINE 0.5 ML SYRINGE IM ONE (09:00)
[2016-12-21] MEDS ORDERED: PNEUMOCOCCAL VACCINE (13 VALENT) 0.5 ML SYRINGE IM ONE (09:00)
[2016-12-21] MEDS: ALLOPURINOL 100 MG TABLET PO SCH (09:01)
[2016-12-21] MEDS: ASPIRIN 325 MG TABLET PO SCH (09:01)
[2016-12-21] MEDS ORDERED: hydrALAZINE 20 MG/1 ML VIAL IV PRN (09:52)
[2016-12-21] MEDS: ACETAMINOPHEN 325 MG TABLET PO PRN (20:32)
[2016-12-21] MEDS: DOPamine 800 MG/250 ML PREMIX IV SCH (20:33)
[2016-12-22] MEDS: PANTOPRAZOLE 40 MG TABLET PO SCH (05:15)
[2016-12-22] MEDS: ALLOPURINOL 100 MG TABLET PO SCH (09:17)
[2016-12-22] MEDS: ASPIRIN 325 MG TABLET PO SCH (09:18)
[2016-12-22] MEDS ORDERED: ALUMINUM/MAGNES/SIMETH MAX STR 30 ML UDCUP PO PRN (19:43)
[2016-12-23] MEDS: PANTOPRAZOLE 40 MG TABLET PO SCH (04:56)
[2016-12-23 07:05] LABS: Basophils # 0.1 10*3/uL (0.0-0.2); Eosinophils # 0.2 10*3/uL (0.0-0.87); Hematocrit 42.5 VOL% (42.0-52.0); Hemoglobin 13.6 GM/DL (14.0-18.0); Immature Granulocytes % 0.4 %; Immature Granulocytes Absolute 0.02 #; Lymphocytes # 1.2 10*3/uL (1.4-4.0); Lymphocytes % 23.3 % (21.2-54.2); Mean Corpuscular Hemoglobin 26 PG (27-34); Mean Corpuscular Volume 80.6 FL (87-102); Mean Platelet Volume 11.9 FL (9.6-12.0); Monocytes % 19.7 % (1.7-12.7); Neutrophils # 2.7 10*3/uL (1.4-7.4); Neutrophils % 52.6 % (38.7-73.9); Platelet Count 154 T/CUMM (130-400); Red Blood Count 5.27 MC/CUMM (3.8-5.5); Red Cell Distribution Width 14.1 % (9.3-17.3)
[2016-12-23 07:29] LABS: Eosinophils 4 % (0-10); Lymphocytes 24 % (20-55); Segmented Neutrophils 49 % (50-85); Total Cells Counted 100
[2016-12-23 07:39] LABS: Calcium 9.3 MG/DL (8.5-10.1); Magnesium 2.7 MG/DL (1.8-2.4); Osmolality,Calculated 286.1 MOS/KG (273-304); Potassium 4.5 MMOL/L (3.5-5.1)
[2016-12-23] MEDS: ALLOPURINOL 100 MG TABLET PO SCH (09:12)
[2016-12-23] MEDS: ASPIRIN 325 MG TABLET PO SCH (09:12)
[2016-12-24] MEDS: PANTOPRAZOLE 40 MG TABLET PO SCH (04:30)
[2016-12-24 07:20] LABS: Basophils % 0.7 % (0.0-0.8); Eosinophils # 0.2 10*3/uL (0.0-0.87); Eosinophils % 3.7 % (0.00-10.9); Hematocrit 38.7 VOL% (42.0-52.0); Hemoglobin 12.5 GM/DL (14.0-18.0); Immature Granulocytes % 0.2 %; Immature Granulocytes Absolute 0.01 #; Lymphocytes # 1.4 10*3/uL (1.4-4.0); Lymphocytes % 24.4 % (21.2-54.2); Mean Corpuscular HGB Conc 32.3 GM/DL (32-36); Mean Corpuscular Hemoglobin 26 PG (27-34); Mean Corpuscular Volume 80.5 FL (87-102); Mean Platelet Volume 11.9 FL (9.6-12.0); Monocytes # 1.2 10*3/uL (0.11-0.8); Monocytes % 21.1 % (1.7-12.7); Neutrophils # 2.8 10*3/uL (1.4-7.4); Neutrophils % 49.9 % (38.7-73.9); Platelet Count 135 T/CUMM (130-400); Red Blood Count 4.81 MC/CUMM (3.8-5.5); Red Cell Distribution Width 13.6 % (9.3-17.3); White Blood Count 5.7 T/CUMM (4-12)
[2016-12-24 07:58] LABS: Calcium 8.9 MG/DL (8.5-10.1); Osmolality,Calculated 286.7 MOS/KG (273-304)
[2016-12-24 08:10] LABS: Band Neutrophils 5 % (0-10); Eosinophils 9 % (0-10); Lymphocytes 27 % (20-55); Segmented Neutrophils 44 % (50-85); Total Cells Counted 100
[2016-12-24] MEDS: ALLOPURINOL 100 MG TABLET PO SCH (08:52)
[2016-12-24] MEDS: ASPIRIN 325 MG TABLET PO SCH (08:54)
[2016-12-24] MEDS ORDERED: HEPARIN 10,000 UNIT/10 ML VIAL IV SCH (13:30)
[2016-12-24] MEDS: ACETAMINOPHEN 325 MG TABLET PO PRN (18:34)
[2016-12-25] MEDS: PANTOPRAZOLE 40 MG TABLET PO SCH (05:32)
[2016-12-25 07:58] LABS: Calcium 9.4 MG/DL (8.5-10.1); Magnesium 2.7 MG/DL (1.8-2.4); Osmolality,Calculated 283.1 MOS/KG (273-304); Potassium 4.3 MMOL/L (3.5-5.1)
[2016-12-25] MEDS: ALLOPURINOL 100 MG TABLET PO SCH (08:11)
[2016-12-25] MEDS: ASPIRIN 325 MG TABLET PO SCH (08:11)
[2016-12-25] MEDS: ACETAMINOPHEN 325 MG TABLET PO PRN (13:19)
[2016-12-26] MEDS: PANTOPRAZOLE 40 MG TABLET PO SCH (05:24)
[2016-12-26 05:31] LABS: Basophils # 0.1 10*3/uL (0.0-0.2); Basophils % 1.1 % (0.0-0.8); Eosinophils # 0.2 10*3/uL (0.0-0.87); Hematocrit 41.7 VOL% (42.0-52.0); Hemoglobin 13.3 GM/DL (14.0-18.0); Immature Granulocytes % 0.4 %; Immature Granulocytes Absolute 0.02 #; Lymphocytes # 1.4 10*3/uL (1.4-4.0); Lymphocytes % 25.4 % (21.2-54.2); Mean Corpuscular HGB Conc 31.9 GM/DL (32-36); Mean Corpuscular Hemoglobin 26 PG (27-34); Mean Corpuscular Volume 80.8 FL (87-102); Mean Platelet Volume 10.9 FL (9.6-12.0); Monocytes % 19.3 % (1.7-12.7); Neutrophils # 2.7 10*3/uL (1.4-7.4); Neutrophils % 50.8 % (38.7-73.9); Platelet Count 135 T/CUMM (130-400); Red Blood Count 5.16 MC/CUMM (3.8-5.5); Red Cell Distribution Width 13.6 % (9.3-17.3); White Blood Count 5.4 T/CUMM (4-12)
[2016-12-26 06:06] LABS: Calcium 9.5 MG/DL (8.5-10.1); Magnesium 2.9 MG/DL (1.8-2.4); Osmolality,Calculated 287.2 MOS/KG (273-304); Potassium 4.3 MMOL/L (3.5-5.1)
[2016-12-26 06:06] LABS: Eosinophils 3 % (0-10); Lymphocytes 33 % (20-55); Segmented Neutrophils 45 % (50-85)
[2016-12-26 06:08] LABS: Platelet Estimate Normal
[2016-12-26 06:09] LABS: Total Cells Counted 100
[2016-12-26] MEDS: ASPIRIN 325 MG TABLET PO SCH (08:22)
[2016-12-26] MEDS: ALLOPURINOL 100 MG TABLET PO SCH (08:22)
[2016-12-26] MEDS ORDERED: WARFARIN 5 MG TABLET ONE (17:07)
[2016-12-26] MEDS ORDERED: WARFARIN 10 MG TABLET PO SCH (18:00)
[2016-12-26] MEDS ORDERED: methylPREDNISolone SOD SUC 40 MG/1 ML VIAL IV ONE (18:19)
[2016-12-26] MEDS: diphenhydrAMINE 50 MG/1 ML VIAL IV SCH (18:42)
[2016-12-27] MEDS: diphenhydrAMINE 50 MG/1 ML VIAL IV SCH ×3 (01:52→13:28)
[2016-12-27 06:20] LABS: Basophils % 0.5 % (0.0-0.8); Eosinophils % 0.4 % (0.00-10.9); Hematocrit 42.2 VOL% (42.0-52.0); Hemoglobin 13.5 GM/DL (14.0-18.0); Immature Granulocytes % 0.5 %; Immature Granulocytes Absolute 0.04 #; Lymphocytes # 1.2 10*3/uL (1.4-4.0); Lymphocytes % 16.4 % (21.2-54.2); Mean Corpuscular Hemoglobin 26 PG (27-34); Mean Corpuscular Volume 80.4 FL (87-102); Mean Platelet Volume 11.9 FL (9.6-12.0); Monocytes % 13.5 % (1.7-12.7); Neutrophils # 5.1 10*3/uL (1.4-7.4); Neutrophils % 68.7 % (38.7-73.9); Platelet Count 157 T/CUMM (130-400); Red Blood Count 5.25 MC/CUMM (3.8-5.5); Red Cell Distribution Width 13.8 % (9.3-17.3); White Blood Count 7.4 T/CUMM (4-12)
[2016-12-27 06:29] LABS: INR 1.1; PT Patient Result 11.7 SECS
[2016-12-27 06:50] LABS: Calcium 9.5 MG/DL (8.5-10.1); Magnesium 2.7 MG/DL (1.8-2.4); Osmolality,Calculated 274.7 MOS/KG (273-304); Potassium 4.9 MMOL/L (3.5-5.1)
[2016-12-27] MEDS: PANTOPRAZOLE 40 MG TABLET PO SCH ×2 (08:32→09:33)
[2016-12-27] MEDS: ALLOPURINOL 100 MG TABLET PO SCH (09:33)
[2016-12-27] MEDS: ASPIRIN 325 MG TABLET PO SCH (09:34)
[2016-12-27] MEDS ORDERED: WARFARIN 5 MG TABLET PO SCH (18:00)
[2016-12-27] MEDS: ACETAMINOPHEN 325 MG TABLET PO PRN (20:40)
[2016-12-27] MEDS: diphenhydrAMINE 50 MG/1 ML VIAL IV PRN (21:12)
[2016-12-28] MEDS: ACETAMINOPHEN 325 MG TABLET PO PRN ×3 (04:34→19:27)
[2016-12-28 06:44] LABS: Calcium 9.5 MG/DL (8.5-10.1); Magnesium 2.6 MG/DL (1.8-2.4); Osmolality,Calculated 277.9 MOS/KG (273-304); Potassium 5.3 MMOL/L (3.5-5.1)
[2016-12-28 07:51] LABS: Basophils # 0.1 10*3/uL (0.0-0.2); Eosinophils # 0.1 10*3/uL (0.0-0.87); Eosinophils % 1.8 % (0.00-10.9); Hematocrit 45.4 VOL% (42.0-52.0); Hemoglobin 14.6 GM/DL (14.0-18.0); Immature Granulocytes % 0.3 %; Immature Granulocytes Absolute 0.02 #; Lymphocytes # 1.7 10*3/uL (1.4-4.0); Lymphocytes % 23.8 % (21.2-54.2); Mean Corpuscular HGB Conc 32.2 GM/DL (32-36); Mean Corpuscular Hemoglobin 26 PG (27-34); Mean Corpuscular Volume 80.5 FL (87-102); Mean Platelet Volume 11.9 FL (9.6-12.0); Monocytes # 1.2 10*3/uL (0.11-0.8); Monocytes % 15.8 % (1.7-12.7); Neutrophils # 4.2 10*3/uL (1.4-7.4); Neutrophils % 57.3 % (38.7-73.9); Platelet Count 164 T/CUMM (130-400); Red Blood Count 5.64 MC/CUMM (3.8-5.5); Red Cell Distribution Width 13.9 % (9.3-17.3); White Blood Count 7.3 T/CUMM (4-12)
[2016-12-28 08:18] LABS: Eosinophils 1 % (0-10); Lymphocytes 30 % (20-55); Platelet Estimate Adequate; Polychromasia Slight; Segmented Neutrophils 57 % (50-85); Total Cells Counted 100
[2016-12-28] MEDS: ASPIRIN 325 MG TABLET PO SCH (08:44)
[2016-12-28] MEDS: ALLOPURINOL 100 MG TABLET PO SCH (08:45)
[2016-12-28] MEDS: PANTOPRAZOLE 40 MG TABLET PO SCH (08:45)
[2016-12-28 13:44] LABS: INR 2.6
[2016-12-28 13:49] LABS: PT Patient Result 26.1 SECS
[2016-12-28] MEDS: diphenhydrAMINE 50 MG/1 ML VIAL IV PRN (23:01)
[2016-12-29] MEDS: ACETAMINOPHEN 325 MG TABLET PO PRN (02:18)
[2016-12-29 08:10] LABS: Calcium 9.6 MG/DL (8.5-10.1); Magnesium 2.4 MG/DL (1.8-2.4); Osmolality,Calculated 272.7 MOS/KG (273-304); Potassium 4.4 MMOL/L (3.5-5.1)
[2016-12-29 08:56] LABS: PT Patient Result 39.7 SECS
[2016-12-29] MEDS: ASPIRIN 325 MG TABLET PO SCH (09:06)
[2016-12-29] MEDS: ALLOPURINOL 100 MG TABLET PO SCH (09:07)
[2016-12-29] MEDS: PANTOPRAZOLE 40 MG TABLET PO SCH (09:07)
[2016-12-29 09:38] VITALS: BP 108/59
== END 2016-12-29 12:15 | disposition home or self-care (01) | DRG 312 ==
LOC: N.ED 21:25 → SUATTDRO 23:54 → N.CC 23:54 → N.5E 12-22 13:58
PROVIDERS: ATTEND Internal Medicine

== ENCOUNTER 2017-06-01 09:11 | Inpatient (IN) ==
[~2017-06-01 09:11] MED LIST: ceFAZolin 1,000 MG in SYRINGE 1 EACH IV ONE
[2017-06-01 09:34] LABS: Hematocrit 44.3 VOL% (42.0-52.0); Hemoglobin 14.1 GM/DL (14.0-18.0)
[2017-06-01 09:44] LABS: Partial Thromboplastin Time 30.8 SECS (0-40)
[2017-06-01] MEDS ORDERED: SODIUM CHLORIDE 0.9% 250 ML IV SCH (10:30)
[2017-06-01] MEDS ORDERED: CARVEDILOL 3.125 MG TABLET PO SCH (16:00)
[2017-06-01] MEDS: ENOXAPARIN 30 MG/0.3 ML SYRINGE SUBCUT SCH (17:26)
[2017-06-01] MEDS: SEVELAMER CARBONATE 800 MG TABLET PO SCH (18:11)
[2017-06-02] MEDS ORDERED: HEPARIN 5,000 UNIT/1 ML VIAL ONE (06:31)
[2017-06-02] MEDS ORDERED: LIDOCAINE 1%/EPI INJ 20 ML VIAL ONE (06:31)
[2017-06-02] MEDS ORDERED: BUPIVACAINE MPF 0.25% /EPI 30 ML VIAL ONE (06:31)
[2017-06-02 07:03] LABS: Basophils % 0.9 % (0.0-0.8); Eosinophils # 0.3 10*3/uL (0.0-0.87); Eosinophils % 5.5 % (0.00-10.9); Hematocrit 42.7 VOL% (42.0-52.0); Hemoglobin 13.9 GM/DL (14.0-18.0); Immature Granulocytes % 0.2 %; Immature Granulocytes Absolute 0.01 #; Lymphocytes # 1.5 10*3/uL (1.4-4.0); Lymphocytes % 33.3 % (21.2-54.2); Mean Corpuscular HGB Conc 32.6 GM/DL (32-36); Mean Corpuscular Hemoglobin 32 PG (27-34); Mean Corpuscular Volume 98.6 FL (87-102); Monocytes # 0.5 10*3/uL (0.11-0.8); Monocytes % 11.9 % (1.7-12.7); Neutrophils # 2.2 10*3/uL (1.4-7.4); Neutrophils % 48.2 % (38.7-73.9); Platelet Count 138 T/CUMM (130-400); Red Blood Count 4.33 MC/CUMM (3.8-5.5); Red Cell Distribution Width 13.6 % (9.3-17.3); White Blood Count 4.5 T/CUMM (4-12)
[2017-06-02 07:32] LABS: Albumin 3.8 G/DL (3.4-5.0); Calcium 8.6 MG/DL (8.5-10.1); Osmolality,Calculated 275.1 MOS/KG (273-304); Potassium 5.3 MMOL/L (3.5-5.1)
[2017-06-02] MEDS ORDERED: ceFAZolin 1,000 MG in SYRINGE 1 EACH IV ONE (08:00)
[2017-06-02] MEDS ORDERED: ASPIRIN CHEW 81 MG TABLET PO SCH (09:00)
[2017-06-02] MEDS ORDERED: CINACALCET 30 MG TABLET PO SCH (09:00)
[2017-06-02] MEDS ORDERED: MIDAZOLAM 2 MG/2 ML VIAL ONE (09:22)
[2017-06-02] MEDS ORDERED: fentaNYL 100 MCG/2 ML VIAL ONE (09:22)
[2017-06-02] MEDS: SEVELAMER CARBONATE 800 MG TABLET PO SCH ×3 (11:46→16:18)
[2017-06-02] MEDS: ENOXAPARIN 30 MG/0.3 ML SYRINGE SUBCUT SCH (16:18)
[2017-06-02] MEDS ORDERED: CARVEDILOL 12.5 MG TABLET PO SCH (21:00)
[2017-06-03 01:34] VITALS: BP 120/75
== END 2017-06-02 21:58 | disposition home or self-care (01) | DRG 981 ==
LOC: N.OR 09:11 → N.SDSINP 09:13 → N.5E 14:19
PROVIDERS: ADMIT Surgery; ATTEND Surgery

== ENCOUNTER 2017-08-27 15:48 | Inpatient (IN) ==
[2017-08-27 18:31] LABS: Basophils % 0.2 % (0.0-0.8); Hematocrit 40.4 VOL% (42.0-52.0); Hemoglobin 13.4 GM/DL (14.0-18.0); Immature Granulocytes % 1.2 %; Immature Granulocytes Absolute 0.17 #; Lymphocytes # 0.4 10*3/uL (1.4-4.0); Mean Corpuscular HGB Conc 33.2 GM/DL (32-36); Mean Corpuscular Hemoglobin 32 PG (27-34); Mean Corpuscular Volume 94.8 FL (87-102); Mean Platelet Volume 11.1 FL (9.6-12.0); Monocytes # 1.5 10*3/uL (0.11-0.8); Monocytes % 10.6 % (1.7-12.7); Neutrophils # 11.7 10*3/uL (1.4-7.4); Platelet Count 95 T/CUMM (130-400); Red Blood Count 4.26 MC/CUMM (3.8-5.5); Red Cell Distribution Width 13.1 % (9.3-17.3); White Blood Count 13.7 T/CUMM (4-12)
[2017-08-27 18:43] LABS: Alanine Aminotransferase 13 U/L (16-61); Albumin 3.1 G/DL (3.4-5.0); Alkaline Phosphatase 71 U/L (45-117); Aspartate Amino Transferase 30 U/L (0-37); Blood Urea Nitrogen 71 MG/DL (7-18); Glucose 115 MG/DL (74-106); Osmolality,Calculated 283.7 MOS/KG (273-304); Sodium 131 MMOL/L (136-145); Total Protein 8.8 G/DL (6.4-8.3)
[2017-08-27 18:46] LABS: Lactic Acid 2.2 MMOL/L (0.4-2.0); Potassium 6.7 MMOL/L (3.5-5.1)
[2017-08-27 18:47] LABS: Band Neutrophils 8 % (0-10); Lymphocytes 4 % (20-55); Nucleated Red Blood Cells 2 (0-5); Platelet Estimate Decreased; Segmented Neutrophils 79 % (50-85)
[2017-08-27 18:48] LABS: Total Cells Counted 100
[2017-08-27] MEDS ORDERED: ONDANSETRON 4 MG/2 ML VIAL IV PRN (19:06)
[2017-08-27] MEDS ORDERED: ACETAMINOPHEN 650 MG SUPP RECTAL PRN (19:28)
[2017-08-27] MEDS ORDERED: VANCOMYCIN INJ 1,000 MG in SODIUM CHLORIDE 0.9% 250 ML IV ONE (19:29)
[2017-08-27] MEDS: SODIUM POLYSTYRENE SULFATE 15 GM/60 ML BOTTLE PO SCH (20:26)
[2017-08-27] MEDS: ENOXAPARIN 30 MG/0.3 ML SYRINGE SUBCUT SCH (21:01)
[2017-08-27] MEDS: SODIUM BICARB INJ 100 MEQ in DEXTROSE 5% 1,000 ML IV SCH (21:05)
[2017-08-27] MEDS ORDERED: GENTAMICIN INJ 160 MG in SODIUM CHLORIDE 0.9% 100 ML IV ONE (22:00)
[2017-08-27] MEDS: SODIUM POLYSTYRENE SULFATE 15 GM/60 ML BOTTLE RECTAL SCH (23:32)
[2017-08-28] MEDS: SODIUM POLYSTYRENE SULFATE 15 GM/60 ML BOTTLE PO SCH (02:03)
[2017-08-28] MEDS: SODIUM POLYSTYRENE SULFATE 15 GM/60 ML BOTTLE RECTAL SCH (02:08)
[2017-08-28 07:38] LABS: Basophils % 0.3 % (0.0-0.8); Hemoglobin 11.9 GM/DL (14.0-18.0); Immature Granulocytes % 0.7 %; Immature Granulocytes Absolute 0.07 #; Lymphocytes # 0.8 10*3/uL (1.4-4.0); Lymphocytes % 7.2 % (21.2-54.2); Mean Corpuscular HGB Conc 33.1 GM/DL (32-36); Mean Corpuscular Hemoglobin 32 PG (27-34); Mean Corpuscular Volume 96.8 FL (87-102); Mean Platelet Volume 10.6 FL (9.6-12.0); Monocytes # 1.4 10*3/uL (0.11-0.8); Monocytes % 13.7 % (1.7-12.7); Neutrophils # 8.2 10*3/uL (1.4-7.4); Neutrophils % 78.1 % (38.7-73.9); Platelet Count 81 T/CUMM (130-400); Red Blood Count 3.72 MC/CUMM (3.8-5.5); Red Cell Distribution Width 12.8 % (9.3-17.3); White Blood Count 10.5 T/CUMM (4-12)
[2017-08-28 07:49] LABS: Calcium 8.6 MG/DL (8.5-10.1); Osmolality,Calculated 295.4 MOS/KG (273-304); Potassium 5.1 MMOL/L (3.5-5.1)
[2017-08-28 09:07] LABS: Hypochromasia 1+
[2017-08-28] MEDS: PANTOPRAZOLE 40 MG TABLET PO SCH (09:31)
[2017-08-28] MEDS: SODIUM BICARB INJ 100 MEQ in DEXTROSE 5% 1,000 ML IV SCH ×2 (09:41→19:11)
[2017-08-28] MEDS ORDERED: VANCOMYCIN INJ 1,750 MG in SODIUM CHLORIDE 0.9% 500 ML IV ONE (13:30)
[2017-08-28] MEDS ORDERED: risperiDONE 0.5 MG TABLET PO PRN (13:35)
[2017-08-28] MEDS ORDERED: HEPARIN 10,000 UNIT/10 ML VIAL IV PRN (14:05)
[2017-08-28] MEDS ORDERED: VANCOMYCIN INJ 1,000 MG in SODIUM CHLORIDE 0.9% 250 ML IV ONE (14:30)
[2017-08-28] MEDS: ENOXAPARIN 30 MG/0.3 ML SYRINGE SUBCUT SCH (20:30)
[2017-08-29 06:39] LABS: Basophils % 0.3 % (0.0-0.8); Hematocrit 38.5 VOL% (42.0-52.0); Hemoglobin 12.5 GM/DL (14.0-18.0); Immature Granulocytes % 0.7 %; Immature Granulocytes Absolute 0.06 #; Lymphocytes # 0.7 10*3/uL (1.4-4.0); Lymphocytes % 7.8 % (21.2-54.2); Mean Corpuscular HGB Conc 32.5 GM/DL (32-36); Mean Corpuscular Hemoglobin 31 PG (27-34); Mean Corpuscular Volume 96.7 FL (87-102); Mean Platelet Volume 10.9 FL (9.6-12.0); Monocytes % 21.7 % (1.7-12.7); Neutrophils # 6.3 10*3/uL (1.4-7.4); Neutrophils % 69.5 % (38.7-73.9); Platelet Count 89 T/CUMM (130-400); Red Blood Count 3.98 MC/CUMM (3.8-5.5); Red Cell Distribution Width 12.8 % (9.3-17.3); White Blood Count 9.1 T/CUMM (4-12)
[2017-08-29 06:57] LABS: Calcium 9.2 MG/DL (8.5-10.1); Osmolality,Calculated 288.2 MOS/KG (273-304); Potassium 4.8 MMOL/L (3.5-5.1)
[2017-08-29] MEDS: PANTOPRAZOLE 40 MG TABLET PO SCH (08:47)
[2017-08-29 10:20] LABS: Band Neutrophils 6 % (0-10); Hypochromasia 1+; Lymphocytes 2 % (20-55); Platelet Estimate Decreased; Segmented Neutrophils 82 % (50-85); Total Cells Counted 100
[2017-08-29] MEDS: ENOXAPARIN 30 MG/0.3 ML SYRINGE SUBCUT SCH (21:13)
[2017-08-30] MEDS ORDERED: VANCOMYCIN INJ 750 MG in SODIUM CHLORIDE 0.9% 250 ML IV PRN (09:00)
[2017-08-30] MEDS ORDERED: SKIN HEALING OINT (AQUAPHOR) 50 GM TUBE TOP PRN (09:10)
[2017-08-30 09:45] LABS: Basophils % 0.2 % (0.0-0.8); Eosinophils % 0.3 % (0.00-10.9); Hematocrit 37.7 VOL% (42.0-52.0); Hemoglobin 12.4 GM/DL (14.0-18.0); Immature Granulocytes % 0.8 %; Immature Granulocytes Absolute 0.08 #; Lymphocytes # 0.9 10*3/uL (1.4-4.0); Lymphocytes % 8.8 % (21.2-54.2); Mean Corpuscular HGB Conc 32.9 GM/DL (32-36); Mean Corpuscular Hemoglobin 31 PG (27-34); Mean Corpuscular Volume 94.5 FL (87-102); Mean Platelet Volume 11.4 FL (9.6-12.0); Monocytes # 1.6 10*3/uL (0.11-0.8); Monocytes % 16.5 % (1.7-12.7); Neutrophils % 73.4 % (38.7-73.9); Platelet Count 99 T/CUMM (130-400); Red Blood Count 3.99 MC/CUMM (3.8-5.5); Red Cell Distribution Width 12.7 % (9.3-17.3); White Blood Count 9.6 T/CUMM (4-12)
[2017-08-30 10:06] LABS: Band Neutrophils 3 % (0-10); Eosinophils 1 % (0-10); Hypochromasia 1+; Lymphocytes 8 % (20-55); Platelet Estimate Decreased; Segmented Neutrophils 75 % (50-85); Total Cells Counted 100
[2017-08-30 10:16] LABS: Albumin 3.4 G/DL (3.4-5.0); Calcium 8.7 MG/DL (8.5-10.1); Osmolality,Calculated 293.7 MOS/KG (273-304); Potassium 4.9 MMOL/L (3.5-5.1)
[2017-08-30] MEDS: PANTOPRAZOLE 40 MG TABLET PO SCH (11:41)
[2017-08-30] MEDS: ENOXAPARIN 30 MG/0.3 ML SYRINGE SUBCUT SCH (20:29)
[2017-08-30] MEDS ORDERED: VANCOMYCIN INJ 750 MG in SODIUM CHLORIDE 0.9% 250 ML IV ONE (21:00)
[2017-08-31] MEDS: ACETAMINOPHEN 325 MG TABLET PO PRN ×2 (02:58→15:01)
[2017-08-31 07:23] LABS: Basophils % 0.3 % (0.0-0.8); Eosinophils % 0.3 % (0.00-10.9); Hematocrit 31.6 VOL% (42.0-52.0); Hemoglobin 10.6 GM/DL (14.0-18.0); Immature Granulocytes % 1.6 %; Immature Granulocytes Absolute 0.18 #; Lymphocytes # 1.4 10*3/uL (1.4-4.0); Lymphocytes % 12.9 % (21.2-54.2); Mean Corpuscular HGB Conc 33.5 GM/DL (32-36); Mean Corpuscular Hemoglobin 31 PG (27-34); Mean Corpuscular Volume 92.9 FL (87-102); Monocytes # 1.5 10*3/uL (0.11-0.8); Monocytes % 13.4 % (1.7-12.7); Neutrophils # 7.8 10*3/uL (1.4-7.4); Neutrophils % 71.5 % (38.7-73.9); Platelet Count 98 T/CUMM (130-400); Red Cell Distribution Width 12.7 % (9.3-17.3); White Blood Count 10.9 T/CUMM (4-12)
[2017-08-31 07:40] LABS: Hypochromasia 1+
[2017-08-31 07:41] LABS: Ovalocytes Slight; Platelet Estimate Decreased
[2017-08-31 07:58] LABS: Calcium 8.2 MG/DL (8.5-10.1); Osmolality,Calculated 298.9 MOS/KG (273-304); Potassium 4.6 MMOL/L (3.5-5.1)
[2017-08-31] MEDS ORDERED: LIDOCAINE/PRILOCAINE CREAM 5 GM TUBE TOP STA (08:21)
[2017-08-31] MEDS: PANTOPRAZOLE 40 MG TABLET PO SCH (10:02)
[2017-08-31 17:53] LABS: Calcium 8.5 MG/DL (8.5-10.1); Osmolality,Calculated 299.1 MOS/KG (273-304); Potassium 4.9 MMOL/L (3.5-5.1)
[2017-08-31] MEDS: RIFAMPIN 300 MG CAPSULE PO SCH (21:30)
[2017-08-31] MEDS: ENOXAPARIN 30 MG/0.3 ML SYRINGE SUBCUT SCH (21:30)
[2017-09-01 05:53] LABS: Basophils % 0.2 % (0.0-0.8); Eosinophils # 0.1 10*3/uL (0.0-0.87); Eosinophils % 0.6 % (0.00-10.9); Hematocrit 30.3 VOL% (42.0-52.0); Hemoglobin 10.7 GM/DL (14.0-18.0); Immature Granulocytes % 1.8 %; Immature Granulocytes Absolute 0.15 #; Lymphocytes # 0.9 10*3/uL (1.4-4.0); Lymphocytes % 10.4 % (21.2-54.2); Mean Corpuscular HGB Conc 35.3 GM/DL (32-36); Mean Corpuscular Hemoglobin 32 PG (27-34); Mean Corpuscular Volume 89.9 FL (87-102); Monocytes # 1.7 10*3/uL (0.11-0.8); Monocytes % 19.7 % (1.7-12.7); Neutrophils # 5.6 10*3/uL (1.4-7.4); Neutrophils % 67.3 % (38.7-73.9); Platelet Count 110 T/CUMM (130-400); Red Blood Count 3.37 MC/CUMM (3.8-5.5); Red Cell Distribution Width 12.8 % (9.3-17.3); White Blood Count 8.4 T/CUMM (4-12)
[2017-09-01] MEDS ORDERED: DIAZEPAM 5 MG TABLET PO ONE (06:00)
[2017-09-01] MEDS ORDERED: FAMOTIDINE 20 MG TABLET PO ONE (06:00)
[2017-09-01 06:14] LABS: Calcium 8.1 MG/DL (8.5-10.1); Osmolality,Calculated 305.9 MOS/KG (273-304); Potassium 4.7 MMOL/L (3.5-5.1)
[2017-09-01 06:27] LABS: Lymphocytes 10 % (20-55); Segmented Neutrophils 73 % (50-85); Total Cells Counted 100
[2017-09-01 06:28] LABS: Hypochromasia 1+; Platelet Estimate Decreased
[2017-09-01 06:29] LABS: Osmolality,Calculated 307.9 MOS/KG (273-304); Potassium 4.7 MMOL/L (3.5-5.1)
[2017-09-01] MEDS: SODIUM CHLORIDE 0.9% 250 ML IV SCH (08:25)
[2017-09-01] MEDS ORDERED: HEPARIN 5,000 UNIT/1 ML VIAL ONE (09:18)
[2017-09-01] MEDS ORDERED: BUPIVACAINE MPF 0.25% /EPI 30 ML VIAL ONE (09:18)
[2017-09-01] MEDS ORDERED: LIDOCAINE 1%/EPI INJ 20 ML VIAL ONE (09:18)
[2017-09-01] MEDS ORDERED: PROPOFOL 200 MG/20 ML VIAL IV ONE (10:05)
[2017-09-01] MEDS ORDERED: fentaNYL 100 MCG/2 ML VIAL ONE (10:05)
[2017-09-01] MEDS ORDERED: MIDAZOLAM 2 MG/2 ML VIAL ONE (10:06)
[2017-09-01] MEDS ORDERED: SODIUM CHLORIDE 0.9% 100 ML IV ONE (10:06)
[2017-09-01] MEDS: RIFAMPIN 300 MG CAPSULE PO SCH ×2 (16:02→20:32)
[2017-09-01] MEDS: PANTOPRAZOLE 40 MG TABLET PO SCH (16:02)
[2017-09-01] MEDS: ACETAMINOPHEN 325 MG TABLET PO PRN (20:31)
[2017-09-01] MEDS: ENOXAPARIN 30 MG/0.3 ML SYRINGE SUBCUT SCH (20:33)
[2017-09-02] MEDS ORDERED: LIDOCAINE 1%/EPI INJ 20 ML VIAL ONE (06:32)
[2017-09-02] MEDS ORDERED: BUPIVACAINE MPF 0.25% 30 ML VIAL ONE (06:32)
[2017-09-02 07:22] LABS: Basophils % 0.5 % (0.0-0.8); Eosinophils # 0.1 10*3/uL (0.0-0.87); Eosinophils % 1.6 % (0.00-10.9); Hematocrit 34.9 VOL% (42.0-52.0); Hemoglobin 11.7 GM/DL (14.0-18.0); Immature Granulocytes % 1.4 %; Immature Granulocytes Absolute 0.09 #; Mean Corpuscular HGB Conc 33.5 GM/DL (32-36); Mean Corpuscular Hemoglobin 31 PG (27-34); Mean Corpuscular Volume 92.8 FL (87-102); Mean Platelet Volume 11.2 FL (9.6-12.0); Monocytes # 1.3 10*3/uL (0.11-0.8); Monocytes % 19.6 % (1.7-12.7); Neutrophils # 3.9 10*3/uL (1.4-7.4); Neutrophils % 60.9 % (38.7-73.9); Platelet Count 162 T/CUMM (130-400); Red Blood Count 3.76 MC/CUMM (3.8-5.5); Red Cell Distribution Width 12.8 % (9.3-17.3); White Blood Count 6.4 T/CUMM (4-12)
[2017-09-02 07:45] LABS: Eosinophils 3 % (0-10); Hypochromasia Slight; Lymphocytes 16 % (20-55); Platelet Estimate Normal; Segmented Neutrophils 59 % (50-85); Total Cells Counted 100
[2017-09-02 07:48] LABS: Albumin 3.3 G/DL (3.4-5.0); Calcium 8.6 MG/DL (8.5-10.1); Osmolality,Calculated 290.2 MOS/KG (273-304); Potassium 4.2 MMOL/L (3.5-5.1)
[2017-09-02] MEDS ORDERED: SODIUM CHLORIDE 0.9% 100 ML IV ONE (08:33)
[2017-09-02] MEDS ORDERED: ETOMIDATE 40 MG/20 ML VIAL IV ONE (08:33)
[2017-09-02] MEDS ORDERED: DEXAMETHASONE 10 MG/1 ML VIAL ONE (08:33)
[2017-09-02] MEDS ORDERED: PROPOFOL 200 MG/20 ML VIAL IV ONE (08:33)
[2017-09-02] MEDS ORDERED: fentaNYL 100 MCG/2 ML VIAL ONE (08:34)
[2017-09-02] MEDS ORDERED: MIDAZOLAM 2 MG/2 ML VIAL ONE (08:34)
[2017-09-02] MEDS ORDERED: KETOROLAC 30 MG/1 ML VIAL ONE (08:35)
[2017-09-02] MEDS ORDERED: ONDANSETRON 4 MG/2 ML VIAL ONE (08:35)
[2017-09-02] MEDS: SODIUM CHLORIDE 0.9% 250 ML IV SCH (14:52)
[2017-09-02] MEDS: ACETAMINOPHEN 325 MG TABLET PO PRN ×2 (16:15→23:06)
[2017-09-02] MEDS: RIFAMPIN 300 MG CAPSULE PO SCH ×2 (16:15→21:00)
[2017-09-02] MEDS: PANTOPRAZOLE 40 MG TABLET PO SCH (16:16)
[2017-09-02] MEDS: ENOXAPARIN 30 MG/0.3 ML SYRINGE SUBCUT SCH (21:00)
[2017-09-03] MEDS: RIFAMPIN 300 MG CAPSULE PO SCH ×2 (08:45→21:15)
[2017-09-03] MEDS: PANTOPRAZOLE 40 MG TABLET PO SCH (08:45)
[2017-09-03] MEDS: ACETAMINOPHEN 325 MG TABLET PO PRN (18:42)
[2017-09-03] MEDS: ENOXAPARIN 30 MG/0.3 ML SYRINGE SUBCUT SCH (21:14)
[2017-09-04 06:22] LABS: Basophils # 0.1 10*3/uL (0.0-0.2); Basophils % 0.7 % (0.0-0.8); Eosinophils # 0.2 10*3/uL (0.0-0.87); Eosinophils % 3.4 % (0.00-10.9); Hematocrit 32.5 VOL% (42.0-52.0); Immature Granulocytes Absolute 0.28 #; Lymphocytes % 28.9 % (21.2-54.2); Mean Corpuscular HGB Conc 33.8 GM/DL (32-36); Mean Corpuscular Hemoglobin 31 PG (27-34); Mean Corpuscular Volume 92.1 FL (87-102); Mean Platelet Volume 10.3 FL (9.6-12.0); Monocytes # 0.7 10*3/uL (0.11-0.8); Neutrophils # 3.7 10*3/uL (1.4-7.4); Platelet Count 228 T/CUMM (130-400); Red Blood Count 3.53 MC/CUMM (3.8-5.5); Red Cell Distribution Width 12.6 % (9.3-17.3)
[2017-09-04 07:05] LABS: Albumin 3.1 G/DL (3.4-5.0); Calcium 8.7 MG/DL (8.5-10.1); Osmolality,Calculated 282.4 MOS/KG (273-304); Potassium 4.4 MMOL/L (3.5-5.1)
[2017-09-04] MEDS: PANTOPRAZOLE 40 MG TABLET PO SCH (08:47)
[2017-09-04] MEDS: RIFAMPIN 300 MG CAPSULE PO SCH ×2 (08:47→21:05)
[2017-09-04] MEDS: ACETAMINOPHEN 325 MG TABLET PO PRN ×2 (18:04→23:52)
[2017-09-04] MEDS: ENOXAPARIN 30 MG/0.3 ML SYRINGE SUBCUT SCH (21:05)
[2017-09-05 06:00] LABS: Basophils # 0.1 10*3/uL (0.0-0.2); Basophils % 0.7 % (0.0-0.8); Eosinophils # 0.2 10*3/uL (0.0-0.87); Eosinophils % 2.6 % (0.00-10.9); Hematocrit 33.7 VOL% (42.0-52.0); Hemoglobin 11.4 GM/DL (14.0-18.0); Immature Granulocytes % 3.4 %; Immature Granulocytes Absolute 0.28 #; Lymphocytes # 2.4 10*3/uL (1.4-4.0); Lymphocytes % 29.4 % (21.2-54.2); Mean Corpuscular HGB Conc 33.8 GM/DL (32-36); Mean Corpuscular Hemoglobin 31 PG (27-34); Mean Corpuscular Volume 91.6 FL (87-102); Mean Platelet Volume 10.5 FL (9.6-12.0); Monocytes # 0.6 10*3/uL (0.11-0.8); Monocytes % 7.9 % (1.7-12.7); Neutrophils # 4.5 10*3/uL (1.4-7.4); Platelet Count 283 T/CUMM (130-400); Red Blood Count 3.68 MC/CUMM (3.8-5.5); Red Cell Distribution Width 12.5 % (9.3-17.3); White Blood Count 8.1 T/CUMM (4-12)
[2017-09-05 06:27] LABS: Albumin 3.2 G/DL (3.4-5.0); Osmolality,Calculated 276.4 MOS/KG (273-304); Potassium 4.3 MMOL/L (3.5-5.1)
[2017-09-05] MEDS: RIFAMPIN 300 MG CAPSULE PO SCH ×2 (08:02→21:55)
[2017-09-05] MEDS: PANTOPRAZOLE 40 MG TABLET PO SCH (08:02)
[2017-09-05] MEDS: ENOXAPARIN 30 MG/0.3 ML SYRINGE SUBCUT SCH (21:55)
[2017-09-05] MEDS: ACETAMINOPHEN 325 MG TABLET PO PRN (21:55)
[2017-09-06 06:00] LABS: Basophils # 0.1 10*3/uL (0.0-0.2); Basophils % 0.7 % (0.0-0.8); Eosinophils # 0.2 10*3/uL (0.0-0.87); Eosinophils % 2.9 % (0.00-10.9); Hematocrit 30.3 VOL% (42.0-52.0); Hemoglobin 10.3 GM/DL (14.0-18.0); Immature Granulocytes % 3.4 %; Immature Granulocytes Absolute 0.28 #; Lymphocytes # 2.3 10*3/uL (1.4-4.0); Lymphocytes % 27.6 % (21.2-54.2); Mean Corpuscular Hemoglobin 31 PG (27-34); Mean Corpuscular Volume 92.1 FL (87-102); Mean Platelet Volume 9.8 FL (9.6-12.0); Monocytes # 0.7 10*3/uL (0.11-0.8); Neutrophils # 4.6 10*3/uL (1.4-7.4); Neutrophils % 56.4 % (38.7-73.9); Platelet Count 224 T/CUMM (130-400); Red Blood Count 3.29 MC/CUMM (3.8-5.5); Red Cell Distribution Width 12.7 % (9.3-17.3); White Blood Count 8.2 T/CUMM (4-12)
[2017-09-06 06:30] LABS: Albumin 3.2 G/DL (3.4-5.0); Calcium 8.8 MG/DL (8.5-10.1); Osmolality,Calculated 286.4 MOS/KG (273-304); Potassium 4.5 MMOL/L (3.5-5.1)
[2017-09-06] MEDS: RIFAMPIN 300 MG CAPSULE PO SCH ×2 (12:09→20:23)
[2017-09-06] MEDS: SEVELAMER CARBONATE 800 MG TABLET PO SCH ×2 (12:09→17:17)
[2017-09-06] MEDS: PANTOPRAZOLE 40 MG TABLET PO SCH (12:09)
[2017-09-06 15:34] LABS: INR 1.1; PT Patient Result 11.9 SECS
[2017-09-06] MEDS: CINACALCET 30 MG TABLET PO SCH (17:17)
[2017-09-06] MEDS: WARFARIN 5 MG TABLET PO SCH (18:39)
[2017-09-06] MEDS ORDERED: CARVEDILOL 25 MG TABLET PO SCH (21:00)
[2017-09-06] MEDS: SODIUM CHLORIDE 0.9% 250 ML IV SCH (21:40)
[2017-09-06] MEDS: ACETAMINOPHEN 325 MG TABLET PO PRN (23:23)
[2017-09-07 06:59] LABS: INR 1.2; PT Patient Result 12.1 SECS
[2017-09-07] MEDS: SEVELAMER CARBONATE 800 MG TABLET PO SCH ×3 (09:24→17:19)
[2017-09-07] MEDS: RIFAMPIN 300 MG CAPSULE PO SCH ×2 (09:24→20:12)
[2017-09-07] MEDS: ASPIRIN EC 325 MG TABLET PO SCH (09:24)
[2017-09-07] MEDS: PANTOPRAZOLE 40 MG TABLET PO SCH (09:24)
[2017-09-07] MEDS: WARFARIN 5 MG TABLET PO SCH (17:19)
[2017-09-07] MEDS: CINACALCET 30 MG TABLET PO SCH (17:19)
[2017-09-08 06:18] LABS: INR 1.4; PT Patient Result 14.7 SECS
[2017-09-08] MEDS: SEVELAMER CARBONATE 800 MG TABLET PO SCH ×2 (09:26→13:11)
[2017-09-08] MEDS: ASPIRIN EC 325 MG TABLET PO SCH (09:26)
[2017-09-08] MEDS: RIFAMPIN 300 MG CAPSULE PO SCH (09:27)
[2017-09-08] MEDS: PANTOPRAZOLE 40 MG TABLET PO SCH (09:27)
[2017-09-08 16:13] VITALS: BP 104/73
== END 2017-09-08 16:15 | disposition home or self-care (01) | DRG 252 ==
LOC: EDUNIT# → EDBD → N.ED 15:48 → N.EDINP 16:57 → SUATTDRO 16:57 → N.EDINP 18:55 → N.5E 19:11
PROVIDERS: ADMIT Internal Medicine; ATTEND Internal Medicine

== ENCOUNTER 2017-09-24 19:27 | Observation (INO) ==
[2017-09-24] MEDS ORDERED: LIDOCAINE 1%/EPI INJ 20 ML VIAL ONE (20:01)
[2017-09-24 20:58] LABS: INR 2.1; PT Patient Result 21.1 SECS; Partial Thromboplastin Time 39.8 SECS (0-40)
[2017-09-24 21:00] LABS: Basophils % 0.5 % (0.0-0.8); Eosinophils # 0.2 10*3/uL (0.0-0.87); Eosinophils % 3.1 % (0.00-10.9); Hematocrit 28.2 VOL% (42.0-52.0); Hemoglobin 9.5 GM/DL (14.0-18.0); Immature Granulocytes % 0.4 %; Immature Granulocytes Absolute 0.02 #; Lymphocytes # 1.8 10*3/uL (1.4-4.0); Lymphocytes % 31.5 % (21.2-54.2); Mean Corpuscular HGB Conc 33.7 GM/DL (32-36); Mean Corpuscular Hemoglobin 31 PG (27-34); Mean Corpuscular Volume 92.5 FL (87-102); Mean Platelet Volume 10.5 FL (9.6-12.0); Monocytes # 0.6 10*3/uL (0.11-0.8); Neutrophils % 53.5 % (38.7-73.9); Platelet Count 108 T/CUMM (130-400); Red Blood Count 3.05 MC/CUMM (3.8-5.5); White Blood Count 5.6 T/CUMM (4-12)
[2017-09-24 21:12] LABS: Bilirubin,Total 0.5 MG/DL (0.2-1.0); Calcium 7.2 MG/DL (8.5-10.1); Total Protein 6.7 G/DL (6.4-8.3)
[2017-09-24 21:13] LABS: Osmolality,Calculated 283.5 MOS/KG (273-304); Potassium 3.9 MMOL/L (3.5-5.1)
[2017-09-24] MEDS ORDERED: SODIUM CHLORIDE 0.9% 500 ML IV STA (22:35)
[2017-09-25 04:13] LABS: Basophils % 0.6 % (0.0-0.8); Eosinophils # 0.1 10*3/uL (0.0-0.87); Eosinophils % 2.3 % (0.00-10.9); Hematocrit 26.2 VOL% (42.0-52.0); Hemoglobin 8.7 GM/DL (14.0-18.0); Immature Granulocytes % 0.6 %; Immature Granulocytes Absolute 0.03 #; Lymphocytes # 1.4 10*3/uL (1.4-4.0); Lymphocytes % 28.2 % (21.2-54.2); Mean Corpuscular HGB Conc 33.2 GM/DL (32-36); Mean Corpuscular Hemoglobin 32 PG (27-34); Mean Corpuscular Volume 95.6 FL (87-102); Mean Platelet Volume 10.3 FL (9.6-12.0); Monocytes # 0.7 10*3/uL (0.11-0.8); Monocytes % 14.1 % (1.7-12.7); Neutrophils # 2.6 10*3/uL (1.4-7.4); Neutrophils % 54.2 % (38.7-73.9); Platelet Count 84 T/CUMM (130-400); Red Blood Count 2.74 MC/CUMM (3.8-5.5); White Blood Count 4.8 T/CUMM (4-12)
[2017-09-25 04:30] LABS: Calcium 7.5 MG/DL (8.5-10.1); Osmolality,Calculated 288.3 MOS/KG (273-304); Potassium 4.2 MMOL/L (3.5-5.1)
[2017-09-25 05:21] LABS: Band Neutrophils 1 % (0-10); Eosinophils 1 % (0-10); Lymphocytes 39 % (20-55); Segmented Neutrophils 52 % (50-85); Total Cells Counted 100
[2017-09-25 05:22] LABS: Hypochromasia 1+; Platelet Estimate Decreased
[2017-09-25] MEDS ORDERED: PHYTONADIONE 10 MG/1 ML AMP IV ONE (07:36)
[2017-09-25] MEDS ORDERED: PANTOPRAZOLE 40 MG TABLET PO SCH (09:00)
[2017-09-25] MEDS: SEVELAMER CARBONATE 800 MG TABLET PO SCH ×2 (09:11→11:17)
[2017-09-25 12:53] VITALS: BP 119/82
[2017-09-25] MEDS ORDERED: CINACALCET 30 MG TABLET PO SCH (17:00)
== END 2017-09-25 14:57 | disposition home or self-care (01) ==
LOC: EDUNIT# → N.ED 19:27 → N.EDINP 19:27 → N.5E 23:51

== ENCOUNTER 2019-01-14 15:13 | Inpatient (IN) ==
[2019-01-14] MEDS ORDERED: DOCUSATE SODIUM 100 MG CAPSULE PO PRN (17:42)
[2019-01-14] MEDS ORDERED: ACETAMINOPHEN 325 MG TABLET PO PRN (17:42)
[2019-01-14] MEDS ORDERED: HEPARIN 5,000 UNIT/1 ML VIAL SUBCUT SCH (18:00)
[2019-01-14 18:07] LABS: Basophils % 0.6 % (0.0-0.8); Eosinophils # 0.1 10*3/uL (0.0-0.87); Eosinophils % 1.8 % (0.00-10.9); Hematocrit 39.2 VOL% (42.0-52.0); Hemoglobin 12.5 GM/DL (14.0-18.0); Immature Granulocytes % 0.4 %; Immature Granulocytes Absolute 0.02 #; Lymphocytes # 1.3 10*3/uL (1.4-4.0); Lymphocytes % 26.1 % (21.2-54.2); Mean Corpuscular HGB Conc 31.9 GM/DL (32-36); Mean Corpuscular Volume 95.4 FL (87-102); Mean Platelet Volume 9.8 FL (9.6-12.0); Monocytes % 21.4 % (1.7-12.7); Neutrophils % 49.7 % (38.7-73.9); Platelet Count 144 T/CUMM (130-400); Red Blood Count 4.11 MC/CUMM (3.8-5.5); White Blood Count 5.1 T/CUMM (4-12)
[2019-01-14 18:35] LABS: Albumin 3.8 G/DL (3.4-5.0); Bilirubin,Total 0.4 MG/DL (0.2-1.0); Calcium 9.7 MG/DL (8.5-10.1); Osmolality,Calculated 279.1 MOS/KG (273-304)
[2019-01-14 18:38] LABS: Lymphocytes 24 % (20-55); Segmented Neutrophils 57 % (50-85); Total Cells Counted 100
[2019-01-14 18:41] LABS: Platelet Estimate Adequate
[2019-01-14] MEDS: CHLORHEXIDINE 0.12% ORAL RINSE 60 ML BOTTLE SWISH/SPIT SCH (22:26)
[2019-01-14] MEDS: SEVELAMER CARBONATE 800 MG TABLET PO SCH (22:26)
[2019-01-14] MEDS: carvediloL 12.5 MG TABLET PO SCH (22:26)
[2019-01-15 04:58] LABS: INR 1.2; PT Patient Result 12.7 SECS (9.6-12.2)
[2019-01-15 05:04] LABS: Calcium 9.1 MG/DL (8.5-10.1); Osmolality,Calculated 272.8 MOS/KG (273-304)
[2019-01-15 06:01] LABS: Eosinophils # 0.1 10*3/uL (0.0-0.87); Eosinophils % 2.5 % (0.00-10.9); Hematocrit 34.9 VOL% (42.0-52.0); Hemoglobin 11.3 GM/DL (14.0-18.0); Immature Granulocytes % 0.2 %; Immature Granulocytes Absolute 0.01 #; Lymphocytes # 0.8 10*3/uL (1.4-4.0); Lymphocytes % 20.5 % (21.2-54.2); Mean Corpuscular HGB Conc 32.4 GM/DL (32-36); Mean Corpuscular Volume 94.8 FL (87-102); Mean Platelet Volume 10.1 FL (9.6-12.0); Monocytes % 22.5 % (1.7-12.7); Neutrophils % 53.3 % (38.7-73.9); Platelet Count 131 T/CUMM (130-400); Red Blood Count 3.68 MC/CUMM (3.8-5.5); Red Cell Distribution Width 13.9 % (9.3-17.3); White Blood Count 4.1 T/CUMM (4-12)
[2019-01-15 06:24] LABS: % Iron Saturation 28.1 % (18-50); Ferritin 841.6 ng/ml (26-388); Folate 5.7 NG/ML (5.4-24.0); Thyroid Stimulating Hormone 1.84 uIU/ml (0.358-3.74); Vitamin B12 409 PG/ML (211-911)
[2019-01-15 06:51] LABS: Parathyroid Hormone Intact 379.2 PG/ML (18.4-80.1)
[2019-01-15 07:30] LABS: Sedimentation Rate-Westergren 88 MM/HR (0-20)
[2019-01-15] MEDS: PANTOPRAZOLE 40 MG TABLET PO SCH (08:42)
[2019-01-15] MEDS: SEVELAMER CARBONATE 800 MG TABLET PO SCH ×3 (08:42→17:16)
[2019-01-15] MEDS: CHLORHEXIDINE 0.12% ORAL RINSE 60 ML BOTTLE SWISH/SPIT SCH ×2 (08:42→22:08)
[2019-01-15] MEDS: carvediloL 12.5 MG TABLET PO SCH ×2 (08:42→17:12)
[2019-01-15 09:27] LABS: Eosinophils 1 % (0-10); Lymphocytes 13 % (20-55); Platelet Estimate Adequate; Polychromasia Slight; Segmented Neutrophils 69 % (50-85); Total Cells Counted 100
[2019-01-15] MEDS: CINACALCET 30 MG TABLET PO SCH (17:16)
[2019-01-15] MEDS ORDERED: WARFARIN 7.5 MG TABLET PO SCH (18:00)
[2019-01-15] MEDS ORDERED: WARFARIN 5 MG TABLET PO SCH (18:00)
[2019-01-15] MEDS ORDERED: FOLIC ACID 1 MG TABLET PO SCH (21:00)
[2019-01-16 04:41] LABS: Basophils % 0.5 % (0.0-0.8); Eosinophils # 0.1 10*3/uL (0.0-0.87); Eosinophils % 2.7 % (0.00-10.9); Hematocrit 33.9 VOL% (42.0-52.0); Hemoglobin 10.9 GM/DL (14.0-18.0); Immature Granulocytes % 0.5 %; Immature Granulocytes Absolute 0.02 #; Lymphocytes # 0.7 10*3/uL (1.4-4.0); Lymphocytes % 16.7 % (21.2-54.2); Mean Corpuscular HGB Conc 32.2 GM/DL (32-36); Mean Corpuscular Volume 93.9 FL (87-102); Mean Platelet Volume 10.4 FL (9.6-12.0); Monocytes % 15.8 % (1.7-12.7); Neutrophils % 63.8 % (38.7-73.9); Platelet Count 137 T/CUMM (130-400); Red Blood Count 3.61 MC/CUMM (3.8-5.5); Red Cell Distribution Width 13.9 % (9.3-17.3); White Blood Count 4.1 T/CUMM (4-12)
[2019-01-16 04:55] LABS: INR 1.1; PT Patient Result 11.4 SECS (9.6-12.2)
[2019-01-16 04:58] LABS: Calcium 9.1 MG/DL (8.5-10.1); Osmolality,Calculated 287.1 MOS/KG (273-304)
[2019-01-16 05:16] LABS: Band Neutrophils 1 % (0-10); Eosinophils 5 % (0-10); Hypochromasia 1+; Lymphocytes 16 % (20-55); Platelet Estimate Normal; Segmented Neutrophils 64 % (50-85); Total Cells Counted 100
[2019-01-16] MEDS ORDERED: CALCITRIOL 0.25 MCG CAPSULE PO SCH (09:00)
[2019-01-16] MEDS: PANTOPRAZOLE 40 MG TABLET PO SCH (10:09)
[2019-01-16] MEDS: CHLORHEXIDINE 0.12% ORAL RINSE 60 ML BOTTLE SWISH/SPIT SCH (10:09)
[2019-01-16] MEDS: SEVELAMER CARBONATE 800 MG TABLET PO SCH ×3 (10:09→18:44)
[2019-01-16] MEDS: carvediloL 12.5 MG TABLET PO SCH ×2 (10:11→18:44)
[2019-01-16 10:18] LABS: Hemoglobin A1 (Alkaline) 97.4 % (96.5-98.5); Hemoglobin A2 (Alkaline) 2.6 % (1.5-3.5)
[2019-01-16 11:36] VITALS: BP 126/62
[2019-01-16] MEDS ORDERED: HEPARIN 10,000 UNIT/10 ML VIAL IV SCH (16:30)
[2019-01-16] MEDS: CINACALCET 30 MG TABLET PO SCH (18:44)
== END 2019-01-16 19:02 | disposition home or self-care (01) | DRG 69 ==
LOC: N.3E → SUATTDRO 16:22 → OBSVTOIN 16:22
PROVIDERS: ADMIT Internal Medicine; ATTEND Internal Medicine

== ENCOUNTER 2021-02-26 15:16 | Inpatient (IN) ==
[2021-02-26] MEDS ORDERED: VANCOMYCIN INJ 1,500 MG in SODIUM CHLORIDE 0.9% 500 ML IV STA (15:38)
[2021-02-26 16:37] LABS: ABG Base Excess 9.1 MMOL/L (-2.5-2.5); ABG HCO3 32.9 MMOL/L (20-26); ABG Oxygen Saturation 99.8 % (95-100); ABG PCO2 40.2 MM HG (35-48); ABG TCO2 30.2 MMOL/L (23-27)
[2021-02-26] MEDS ORDERED: LACTATED RINGERS 500 ML IV ONE (16:42)
[2021-02-26] MEDS ORDERED: PIPERACILLIN/TAZOBACTAM 3,375 MG in SODIUM CHLORIDE 0.9% 100 ML IV STA ×2 (16:42→17:11)
[2021-02-26 16:56] LABS: Basophils % 0.2 % (0.0-0.8); Eosinophils % 0.4 % (0.00-10.9); Hematocrit 43.5 VOL% (42.0-52.0); Hemoglobin 13.7 GM/DL (14.0-18.0); Immature Granulocytes % 1.4 %; Immature Granulocytes Absolute 0.07 #; Lymphocytes # 0.1 10*3/uL (1.4-4.0); Lymphocytes % 1.8 % (21.2-54.2); Mean Corpuscular HGB Conc 31.5 GM/DL (32-36); Mean Corpuscular Volume 90.8 FL (87-102); Mean Platelet Volume 9.7 FL (9.6-12.0); Monocytes % 9.1 % (1.7-12.7); Neutrophils % 87.1 % (38.7-73.9); Platelet Count 50 T/CUMM (130-400); Red Blood Count 4.79 MC/CUMM (3.8-5.5); Red Cell Distribution Width 15.8 % (9.3-17.3); White Blood Count 5.1 T/CUMM (4-12)
[2021-02-26 17:27] LABS: Albumin 2.9 G/DL (3.4-5.0); Bilirubin,Total 0.6 MG/DL (0.20-1.00); Calcium 8.9 MG/DL (8.5-10.1); Osmolality,Calculated 280.8 MOS/KG (273-304); Potassium 3.1 MMOL/L (3.5-5.1); Total Protein 7.6 G/DL (6.4-8.2)
[2021-02-26] MEDS ORDERED: ACETAMINOPHEN 120 MG SUPP RECTAL STA (17:32)
[2021-02-26 17:47] LABS: INR 1.4; PT Patient Result 14.9 SECS (10.5-12.0)
[2021-02-26 17:48] LABS: Partial Thromboplastin Time 45.4 SECS (23.8-32.1)
[2021-02-26 18:06] LABS: Band Neutrophils 4 % (0-10); Lymphocytes 3 % (20-55); Platelet Estimate Decreased; Segmented Neutrophils 89 % (50-85); Total Cells Counted 100
[2021-02-26 18:07] LABS: Anisocytosis 1+
[2021-02-26] MEDS ORDERED: GLUCAGON 1 MG VIAL IM PRN (18:18)
[2021-02-26] MEDS ORDERED: ONDANSETRON 4 MG/2 ML VIAL IV PRN (18:18)
[2021-02-26] MEDS ORDERED: hydrALAZINE 20 MG/1 ML VIAL IV PRN (18:18)
[2021-02-26] MEDS ORDERED: CEFEPIME 500 MG in SODIUM CHLORIDE 0.9% 100 ML IV SCH (18:30)
[2021-02-26] MEDS ORDERED: DEXTROSE 50% 25 GM/50 ML SYRINGE IV PRN (18:44)
[2021-02-26] MEDS ORDERED: ACETAMINOPHEN 650 MG SUPP RECTAL STA (18:46)
[2021-02-26] MEDS ORDERED: CEFEPIME 1,000 MG in SODIUM CHLORIDE 0.9% 100 ML IV SCH (21:00)
[2021-02-27 01:43] LABS: ABG Base Excess 4.5 MMOL/L (-2.5-2.5); ABG HCO3 31.6 MMOL/L (20-26); ABG PCO2 57.1 MM HG (35-48); ABG PH 7.361 (7.35-7.45); ABG TCO2 33.4 MMOL/L (23-27)
[2021-02-27 04:42] LABS: Basophils % 0.2 % (0.0-0.8); Eosinophils % 0.1 % (0.00-10.9); Hematocrit 24.8 VOL% (42.0-52.0); Immature Granulocytes % 3.5 %; Immature Granulocytes Absolute 0.29 #; Lymphocytes # 0.4 10*3/uL (1.4-4.0); Lymphocytes % 4.5 % (21.2-54.2); Mean Corpuscular HGB Conc 30.2 GM/DL (32-36); Mean Platelet Volume 10.2 FL (9.6-12.0); Monocytes % 12.9 % (1.7-12.7); Neutrophils % 78.8 % (38.7-73.9); Red Blood Count 2.61 MC/CUMM (3.8-5.5); Red Cell Distribution Width 15.8 % (9.3-17.3); White Blood Count 8.2 T/CUMM (4-12)
[2021-02-27 04:48] LABS: Potassium 3.3 MMOL/L (3.5-5.1)
[2021-02-27 04:51] LABS: Calcium 8.7 MG/DL (8.5-10.1)
[2021-02-27 04:52] LABS: Albumin 2.7 G/DL (3.4-5.0)
[2021-02-27 04:53] LABS: Osmolality,Calculated 282.1 MOS/KG (273-304)
[2021-02-27 04:57] LABS: Bilirubin,Total 0.4 MG/DL (0.20-1.00)
[2021-02-27 05:01] LABS: Hemoglobin 7.5 GM/DL (14.0-18.0)
[2021-02-27 05:02] LABS: Platelet Count 63 T/CUMM (130-400)
[2021-02-27 05:07] LABS: Band Neutrophils 3 % (0-10); Lymphocytes 6 % (20-55); Platelet Estimate Decreased; Segmented Neutrophils 84 % (50-85); Total Cells Counted 100
[2021-02-27 05:08] LABS: Hypochromia 1+; Microcytosis 1+
[2021-02-27] MEDS: ALBUTEROL/IPRATROPIUM 3 ML NEB RESP TX SCH ×3 (10:10→20:28)
[2021-02-27] MEDS: ceFAZolin 2,000 MG/50 ML DUPLEX IV SCH ×3 (11:16→21:34)
[2021-02-28] MEDS: ALBUTEROL/IPRATROPIUM 3 ML NEB RESP TX SCH ×4 (01:20→20:30)
[2021-02-28 06:15] LABS: Basophils % 0.3 % (0.0-0.8); Eosinophils % 0.3 % (0.00-10.9); Hematocrit 22.6 VOL% (42.0-52.0); Hemoglobin 7.1 GM/DL (14.0-18.0); Immature Granulocytes % 1.3 %; Lymphocytes # 0.4 10*3/uL (1.4-4.0); Lymphocytes % 5.4 % (21.2-54.2); Mean Corpuscular HGB Conc 31.4 GM/DL (32-36); Mean Corpuscular Volume 91.9 FL (87-102); Mean Platelet Volume 11.3 FL (9.6-12.0); Monocytes % 15.6 % (1.7-12.7); Neutrophils % 77.1 % (38.7-73.9); Red Blood Count 2.46 MC/CUMM (3.8-5.5); Red Cell Distribution Width 15.8 % (9.3-17.3); White Blood Count 7.8 T/CUMM (4-12)
[2021-02-28 06:32] LABS: Alanine Aminotransferase < 6 U/L (16-61); Albumin 2.5 G/DL (3.4-5.0); Alkaline Phosphatase 40 U/L (45-117); Aspartate Amino Transferase 32 U/L (0-37); Bilirubin,Total < 0.39 MG/DL (0.20-1.00); Blood Urea Nitrogen 67 MG/DL (7-18); Calcium 8.9 MG/DL (8.5-10.1); Carbon Dioxide 28 MMOL/L (21-32); Estimated Glom Filtration Rate 6 ML/MIN; Glucose 99 MG/DL (74-106); Osmolality,Calculated 282.5 MOS/KG (273-304); Potassium 2.7 MMOL/L (3.5-5.1); Sodium 132 MMOL/L (136-145); Total Protein 6.8 G/DL (6.4-8.2)
[2021-02-28 06:59] LABS: Platelet Count 71 T/CUMM (130-400)
[2021-02-28] MEDS: ceFAZolin 2,000 MG/50 ML DUPLEX IV SCH ×4 (07:53→21:34)
[2021-02-28 09:10] LABS: Hypochromia 1+; Lymphocytes 2 % (20-55); Ovalocytes Slight; Segmented Neutrophils 87 % (50-85); Total Cells Counted 100
[2021-02-28 09:11] LABS: Platelet Estimate Decreased
[2021-02-28] MEDS: POTASSIUM CHLORIDE 20 MEQ TABLET PO PRN ×4 (09:59→16:53)
[2021-02-28] MEDS ORDERED: SODIUM CHLORIDE 0.9% 1,000 ML IV PRN (11:01)
[2021-02-28] MEDS: carvediloL 12.5 MG TABLET PO SCH (16:54)
[2021-02-28] MEDS: levETIRAcetam 250 MG TABLET PO SCH (21:33)
[2021-03-01] MEDS: ALBUTEROL/IPRATROPIUM 3 ML NEB RESP TX SCH ×4 (03:44→21:02)
[2021-03-01] MEDS: ceFAZolin 2,000 MG/50 ML DUPLEX IV SCH ×2 (04:55→10:09)
[2021-03-01 05:49] LABS: Basophils % 0.5 % (0.0-0.8); Eosinophils # 0.1 10*3/uL (0.0-0.87); Eosinophils % 0.9 % (0.00-10.9); Hematocrit 27.3 VOL% (42.0-52.0); Hemoglobin 8.4 GM/DL (14.0-18.0); Immature Granulocytes % 1.1 %; Immature Granulocytes Absolute 0.08 #; Lymphocytes # 0.6 10*3/uL (1.4-4.0); Lymphocytes % 8.7 % (21.2-54.2); Mean Corpuscular HGB Conc 30.8 GM/DL (32-36); Mean Corpuscular Volume 92.9 FL (87-102); Mean Platelet Volume 11.6 FL (9.6-12.0); Neutrophils % 72.8 % (38.7-73.9); Platelet Count 74 T/CUMM (130-400); Red Blood Count 2.94 MC/CUMM (3.8-5.5); Red Cell Distribution Width 16.4 % (9.3-17.3); White Blood Count 7.4 T/CUMM (4-12)
[2021-03-01 06:11] LABS: Hypochromia 1+; Lymphocytes 10 % (20-55); Microcytosis 1+; Platelet Estimate Decreased; Segmented Neutrophils 77 % (50-85); Total Cells Counted 100
[2021-03-01 06:16] LABS: Alanine Aminotransferase < 6 U/L (16-61); Albumin 2.4 G/DL (3.4-5.0); Alkaline Phosphatase 43 U/L (45-117); Aspartate Amino Transferase 26 U/L (0-37); Blood Urea Nitrogen 55 MG/DL (7-18); Carbon Dioxide 26 MMOL/L (21-32); Estimated Glom Filtration Rate 7 ML/MIN; Glucose 84 MG/DL (74-106); Potassium 3.3 MMOL/L (3.5-5.1); Sodium 136 MMOL/L (136-145); Total Protein 6.8 G/DL (6.4-8.2)
[2021-03-01] MEDS: CINACALCET 30 MG TABLET PO SCH (10:10)
[2021-03-01] MEDS: carvediloL 12.5 MG TABLET PO SCH ×2 (10:10→18:28)
[2021-03-01] MEDS: levETIRAcetam 250 MG TABLET PO SCH ×2 (10:10→21:03)
[2021-03-02] MEDS: ALBUTEROL/IPRATROPIUM 3 ML NEB RESP TX SCH ×4 (02:00→19:24)
[2021-03-02] MEDS: ceFAZolin 2,000 MG/50 ML DUPLEX IV SCH ×4 (04:13→21:18)
[2021-03-02 05:34] LABS: Alanine Aminotransferase < 6 U/L (16-61); Albumin 2.6 G/DL (3.4-5.0); Alkaline Phosphatase 51 U/L (45-117); Aspartate Amino Transferase 28 U/L (0-37); Bilirubin,Total < 0.39 MG/DL (0.20-1.00); Blood Urea Nitrogen 67 MG/DL (7-18); Carbon Dioxide 20 MMOL/L (21-32); Estimated Glom Filtration Rate 6 ML/MIN; Glucose 72 MG/DL (74-106); Osmolality,Calculated 277.8 MOS/KG (273-304); Potassium 3.4 MMOL/L (3.5-5.1); Sodium 130 MMOL/L (136-145); Total Protein 7.4 G/DL (6.4-8.2)
[2021-03-02 05:57] LABS: Basophils % 0.4 % (0.0-0.8); Eosinophils # 0.1 10*3/uL (0.0-0.87); Eosinophils % 2.3 % (0.00-10.9); Hematocrit 25.6 VOL% (42.0-52.0); Immature Granulocytes % 0.8 %; Immature Granulocytes Absolute 0.04 #; Lymphocytes # 0.7 10*3/uL (1.4-4.0); Lymphocytes % 13.3 % (21.2-54.2); Mean Corpuscular HGB Conc 31.3 GM/DL (32-36); Mean Corpuscular Volume 91.4 FL (87-102); Mean Platelet Volume 11.2 FL (9.6-12.0); Monocytes % 16.2 % (1.7-12.7)
[2021-03-02 06:15] LABS: Platelet Count 88 T/CUMM (130-400); White Blood Count 5.1 T/CUMM (4-12)
[2021-03-02 06:51] LABS: Eosinophils 2 % (0-10); Hypochromia 1+; Lymphocytes 9 % (20-55); Segmented Neutrophils 78 % (50-85); Total Cells Counted 100
[2021-03-02 06:52] LABS: Microcytosis 1+; Platelet Estimate Decreased
[2021-03-02] MEDS: carvediloL 12.5 MG TABLET PO SCH ×2 (10:43→16:16)
[2021-03-02] MEDS: CINACALCET 30 MG TABLET PO SCH (10:43)
[2021-03-02] MEDS: POTASSIUM CHLORIDE 20 MEQ TABLET PO PRN (11:03)
[2021-03-02] MEDS: levETIRAcetam 250 MG TABLET PO SCH ×2 (11:03→21:18)
[2021-03-03] MEDS: ALBUTEROL/IPRATROPIUM 3 ML NEB RESP TX SCH ×4 (02:00→20:42)
[2021-03-03] MEDS: ceFAZolin 2,000 MG/50 ML DUPLEX IV SCH ×2 (04:15→09:56)
[2021-03-03 04:28] LABS: Basophils % 0.4 % (0.0-0.8); Eosinophils # 0.2 10*3/uL (0.0-0.87); Hematocrit 25.9 VOL% (42.0-52.0); Immature Granulocytes % 1.5 %; Immature Granulocytes Absolute 0.07 #; Lymphocytes # 1.1 10*3/uL (1.4-4.0); Lymphocytes % 23.6 % (21.2-54.2); Mean Corpuscular HGB Conc 30.9 GM/DL (32-36); Mean Corpuscular Volume 92.2 FL (87-102); Mean Platelet Volume 11.5 FL (9.6-12.0); Monocytes % 18.3 % (1.7-12.7); Neutrophils % 52.2 % (38.7-73.9); Platelet Count 103 T/CUMM (130-400); Red Blood Count 2.81 MC/CUMM (3.8-5.5); Red Cell Distribution Width 15.9 % (9.3-17.3); White Blood Count 4.7 T/CUMM (4-12)
[2021-03-03 04:52] LABS: Eosinophils 3 % (0-10); Hypochromia Slight; Lymphocytes 22 % (20-55); Microcytosis Slight; Platelet Estimate Decreased; Segmented Neutrophils 56 % (50-85); Total Cells Counted 100
[2021-03-03 08:49] LABS: Calcium 8.6 MG/DL (8.5-10.1); Osmolality,Calculated 284.7 MOS/KG (273-304); Potassium 3.6 MMOL/L (3.5-5.1)
[2021-03-03] MEDS: CINACALCET 30 MG TABLET PO SCH (09:56)
[2021-03-03] MEDS: levETIRAcetam 250 MG TABLET PO SCH ×2 (09:56→20:33)
[2021-03-03] MEDS: carvediloL 12.5 MG TABLET PO SCH ×2 (09:56→18:28)
[2021-03-04] MEDS: ALBUTEROL/IPRATROPIUM 3 ML NEB RESP TX SCH ×4 (01:27→19:54)
[2021-03-04 04:09] LABS: INR 1.2; PT Patient Result 13.1 SECS (10.5-12.0)
[2021-03-04 08:04] LABS: Basophils % 0.5 % (0.0-0.8); Eosinophils # 0.2 10*3/uL (0.0-0.87); Eosinophils % 5.5 % (0.00-10.9); Hematocrit 24.6 VOL% (42.0-52.0); Hemoglobin 7.8 GM/DL (14.0-18.0); Immature Granulocytes Absolute 0.04 #; Lymphocytes # 0.8 10*3/uL (1.4-4.0); Lymphocytes % 19.1 % (21.2-54.2); Mean Corpuscular HGB Conc 31.7 GM/DL (32-36); Mean Corpuscular Volume 90.4 FL (87-102); Mean Platelet Volume 11.2 FL (9.6-12.0); Monocytes % 17.4 % (1.7-12.7); Neutrophils % 56.5 % (38.7-73.9); Platelet Count 118 T/CUMM (130-400); Red Blood Count 2.72 MC/CUMM (3.8-5.5); Red Cell Distribution Width 15.6 % (9.3-17.3); White Blood Count 4.2 T/CUMM (4-12)
[2021-03-04 08:10] LABS: Calcium 8.3 MG/DL (8.5-10.1); Osmolality,Calculated 287.9 MOS/KG (273-304); Potassium 3.1 MMOL/L (3.5-5.1)
[2021-03-04] MEDS: carvediloL 12.5 MG TABLET PO SCH ×2 (08:23→16:37)
[2021-03-04 08:24] LABS: Eosinophils 7 % (0-10); Hypochromia 1+; Lymphocytes 13 % (20-55); Platelet Estimate Decreased; Segmented Neutrophils 64 % (50-85); Total Cells Counted 100
[2021-03-04 08:25] LABS: Microcytosis Slight
[2021-03-04] MEDS ORDERED: SODIUM CHLORIDE 0.45% 1,000 ML IV SCH (08:30)
[2021-03-04] MEDS ORDERED: MIDAZOLAM 2 MG/2 ML VIAL IV ONE (08:30)
[2021-03-04] MEDS ORDERED: fentaNYL 100 MCG/2 ML VIAL IV ONE (08:30)
[2021-03-04] MEDS: levETIRAcetam 250 MG TABLET PO SCH ×2 (09:05→21:32)
[2021-03-04] MEDS: CINACALCET 30 MG TABLET PO SCH (09:05)
[2021-03-05] MEDS: ALBUTEROL/IPRATROPIUM 3 ML NEB RESP TX SCH ×4 (00:15→19:59)
[2021-03-05 06:13] LABS: Basophils % 0.3 % (0.0-0.8); Eosinophils # 0.3 10*3/uL (0.0-0.87); Hematocrit 24.7 VOL% (42.0-52.0); Immature Granulocytes % 1.5 %; Immature Granulocytes Absolute 0.06 #; Lymphocytes # 0.8 10*3/uL (1.4-4.0); Lymphocytes % 20.4 % (21.2-54.2); Mean Corpuscular HGB Conc 32.4 GM/DL (32-36); Mean Corpuscular Volume 89.8 FL (87-102); Mean Platelet Volume 10.9 FL (9.6-12.0); Monocytes % 16.1 % (1.7-12.7); Neutrophils % 54.7 % (38.7-73.9); Platelet Count 121 T/CUMM (130-400); Red Blood Count 2.75 MC/CUMM (3.8-5.5); Red Cell Distribution Width 15.4 % (9.3-17.3)
[2021-03-05 06:33] LABS: % Iron Saturation 19.9 % (18-50); Calcium 8.5 MG/DL (8.5-10.1); Ferritin 565.5 ng/mL (26-388); Osmolality,Calculated 295.7 MOS/KG (273-304); Potassium 3.4 MMOL/L (3.5-5.1)
[2021-03-05 06:35] LABS: Eosinophils 4 % (0-10); Lymphocytes 12 % (20-55); Segmented Neutrophils 68 % (50-85); Total Cells Counted 100
[2021-03-05 06:36] LABS: Hypochromia 1+; Microcytosis 1+; Platelet Estimate Normal
[2021-03-05] MEDS ORDERED: EPOETIN ALFA-EPBX 10,000 UNIT/ML VIAL SUBCUT SCH (08:00)
[2021-03-05] MEDS ORDERED: SODIUM CHLORIDE 0.45% 1,000 ML IV SCH (08:30)
[2021-03-05] MEDS ORDERED: fentaNYL 100 MCG/2 ML VIAL IV ONE (08:30)
[2021-03-05] MEDS ORDERED: MIDAZOLAM 2 MG/2 ML VIAL IV ONE (08:30)
[2021-03-05] MEDS: carvediloL 12.5 MG TABLET PO SCH ×2 (09:20→18:12)
[2021-03-05] MEDS: CINACALCET 30 MG TABLET PO SCH (09:22)
[2021-03-05] MEDS: levETIRAcetam 250 MG TABLET PO SCH ×2 (09:22→21:14)
[2021-03-06] MEDS: ALBUTEROL/IPRATROPIUM 3 ML NEB RESP TX SCH ×4 (00:32→19:51)
[2021-03-06 04:30] LABS: Basophils % 0.4 % (0.0-0.8); Eosinophils # 0.3 10*3/uL (0.0-0.87); Eosinophils % 6.7 % (0.00-10.9); Hematocrit 23.5 VOL% (42.0-52.0); Hemoglobin 7.3 GM/DL (14.0-18.0); Immature Granulocytes % 1.3 %; Immature Granulocytes Absolute 0.06 #; Lymphocytes # 0.9 10*3/uL (1.4-4.0); Lymphocytes % 18.7 % (21.2-54.2); Mean Corpuscular HGB Conc 31.1 GM/DL (32-36); Mean Corpuscular Volume 89.7 FL (87-102); Mean Platelet Volume 10.7 FL (9.6-12.0); Neutrophils % 59.9 % (38.7-73.9); Platelet Count 130 T/CUMM (130-400); Red Blood Count 2.62 MC/CUMM (3.8-5.5); Red Cell Distribution Width 15.2 % (9.3-17.3); White Blood Count 4.8 T/CUMM (4-12)
[2021-03-06 05:09] LABS: Calcium 8.2 MG/DL (8.5-10.1); Osmolality,Calculated 302.4 MOS/KG (273-304); Potassium 3.8 MMOL/L (3.5-5.1)
[2021-03-06] MEDS ORDERED: DIAZEPAM 5 MG TABLET PO ONE (07:45)
[2021-03-06] MEDS ORDERED: HEPARIN LOCK FLUSH 500 UNIT/5 ML SYRINGE IV ONE (07:50)
[2021-03-06] MEDS: CINACALCET 30 MG TABLET PO SCH (08:01)
[2021-03-06] MEDS: carvediloL 12.5 MG TABLET PO SCH ×2 (08:01→16:53)
[2021-03-06] MEDS: levETIRAcetam 250 MG TABLET PO SCH ×2 (08:01→20:33)
[2021-03-06] MEDS: SODIUM CHLORIDE 0.45% 1,000 ML IV SCH (08:02)
[2021-03-06] MEDS ORDERED: fentaNYL 100 MCG/2 ML VIAL IV ONE (08:30)
[2021-03-06] MEDS ORDERED: MIDAZOLAM 2 MG/2 ML VIAL IV ONE (08:30)
[2021-03-06] MEDS ORDERED: TISSUE ADHESIVE 1 EACH APPLICATOR TOP ONE (09:18)
[2021-03-06] MEDS: ACETAMINOPHEN 325 MG TABLET PO PRN ×2 (14:56→23:29)
[2021-03-07] MEDS: ALBUTEROL/IPRATROPIUM 3 ML NEB RESP TX SCH ×4 (00:50→19:20)
[2021-03-07] MEDS: levETIRAcetam 250 MG TABLET PO SCH ×2 (09:20→21:48)
[2021-03-07] MEDS: CINACALCET 30 MG TABLET PO SCH (09:20)
[2021-03-07] MEDS: carvediloL 12.5 MG TABLET PO SCH ×2 (09:20→18:19)
[2021-03-07 10:28] LABS: Basophils % 0.2 % (0.0-0.8); Eosinophils # 0.2 10*3/uL (0.0-0.87); Eosinophils % 3.7 % (0.00-10.9); Hematocrit 22.1 VOL% (42.0-52.0); Immature Granulocytes % 0.7 %; Immature Granulocytes Absolute 0.03 #; Lymphocytes # 0.5 10*3/uL (1.4-4.0); Lymphocytes % 12.5 % (21.2-54.2); Mean Corpuscular HGB Conc 31.7 GM/DL (32-36); Mean Platelet Volume 10.1 FL (9.6-12.0); Monocytes % 11.8 % (1.7-12.7); Neutrophils % 71.1 % (38.7-73.9); Platelet Count 115 T/CUMM (130-400); Red Blood Count 2.51 MC/CUMM (3.8-5.5); White Blood Count 4.1 T/CUMM (4-12)
[2021-03-07 10:45] LABS: Calcium 8.1 MG/DL (8.5-10.1); Osmolality,Calculated 286.8 MOS/KG (273-304); Potassium 3.1 MMOL/L (3.5-5.1)
[2021-03-07] MEDS: POTASSIUM CHLORIDE 20 MEQ TABLET PO PRN (23:12)
[2021-03-08] MEDS: ALBUTEROL/IPRATROPIUM 3 ML NEB RESP TX SCH ×4 (01:11→19:35)
[2021-03-08] MEDS: ACETAMINOPHEN 325 MG TABLET PO PRN (01:47)
[2021-03-08 05:01] LABS: Basophils % 0.7 % (0.0-0.8); Eosinophils # 0.2 10*3/uL (0.0-0.87); Hematocrit 23.8 VOL% (42.0-52.0); Hemoglobin 7.2 GM/DL (14.0-18.0); Immature Granulocytes % 1.1 %; Immature Granulocytes Absolute 0.05 #; Lymphocytes # 0.8 10*3/uL (1.4-4.0); Lymphocytes % 18.3 % (21.2-54.2); Mean Corpuscular HGB Conc 30.3 GM/DL (32-36); Mean Corpuscular Volume 91.2 FL (87-102); Mean Platelet Volume 10.8 FL (9.6-12.0); Monocytes % 16.7 % (1.7-12.7); Neutrophils % 59.2 % (38.7-73.9); Platelet Count 128 T/CUMM (130-400); Red Blood Count 2.61 MC/CUMM (3.8-5.5); Red Cell Distribution Width 14.9 % (9.3-17.3); White Blood Count 4.5 T/CUMM (4-12)
[2021-03-08 05:30] LABS: Calcium 8.6 MG/DL (8.5-10.1); Osmolality,Calculated 278.2 MOS/KG (273-304); Potassium 3.3 MMOL/L (3.5-5.1)
[2021-03-08 07:18] LABS: Eosinophils 1 % (0-10); Hypochromia 1+; Lymphocytes 29 % (20-55); Platelet Estimate Normal; Segmented Neutrophils 57 % (50-85); Total Cells Counted 100
[2021-03-08] MEDS: CINACALCET 30 MG TABLET PO SCH (08:53)
[2021-03-08] MEDS: carvediloL 12.5 MG TABLET PO SCH ×2 (08:53→17:34)
[2021-03-08] MEDS: levETIRAcetam 250 MG TABLET PO SCH ×2 (08:53→20:48)
[2021-03-08] MEDS ORDERED: traMADol 50 MG TABLET PO PRN (15:46)
[2021-03-08] MEDS: SODIUM CHLORIDE 0.45% 1,000 ML IV SCH ×2 (17:10→18:25)
[2021-03-08] MEDS: ceFAZolin 1,000 MG VIAL IM SCH (18:13)
[2021-03-08] MEDS: POTASSIUM CHLORIDE 20 MEQ TABLET PO PRN (20:48)
[2021-03-09] MEDS: ALBUTEROL/IPRATROPIUM 3 ML NEB RESP TX SCH ×4 (00:56→19:10)
[2021-03-09 05:22] LABS: Basophils % 0.7 % (0.0-0.8); Eosinophils # 0.2 10*3/uL (0.0-0.87); Eosinophils % 4.6 % (0.00-10.9); Hematocrit 24.7 VOL% (42.0-52.0); Hemoglobin 7.4 GM/DL (14.0-18.0); Immature Granulocytes % 0.7 %; Immature Granulocytes Absolute 0.03 #; Lymphocytes % 23.6 % (21.2-54.2); Mean Corpuscular Volume 94.6 FL (87-102); Mean Platelet Volume 10.5 FL (9.6-12.0); Monocytes % 15.6 % (1.7-12.7); Neutrophils % 54.8 % (38.7-73.9); Platelet Count 122 T/CUMM (130-400); Red Blood Count 2.61 MC/CUMM (3.8-5.5); Red Cell Distribution Width 14.7 % (9.3-17.3); White Blood Count 4.1 T/CUMM (4-12)
[2021-03-09 05:49] LABS: Calcium 8.4 MG/DL (8.5-10.1); Osmolality,Calculated 277.4 MOS/KG (273-304); Potassium 3.8 MMOL/L (3.5-5.1)
[2021-03-09] MEDS: HEPARIN LOCK FLUSH 500 UNIT/5 ML SYRINGE IV PRN (06:13)
[2021-03-09] MEDS: levETIRAcetam 250 MG TABLET PO SCH ×2 (09:01→20:59)
[2021-03-09] MEDS: CINACALCET 30 MG TABLET PO SCH (09:02)
[2021-03-09] MEDS: ACETAMINOPHEN 325 MG TABLET PO PRN ×2 (09:02→17:09)
[2021-03-09] MEDS: carvediloL 12.5 MG TABLET PO SCH ×2 (09:02→17:09)
[2021-03-09] MEDS: ceFAZolin 1,000 MG VIAL IM SCH (09:04)
[2021-03-09 09:12] LABS: Eosinophils 1 % (0-10); Lymphocytes 25 % (20-55); Segmented Neutrophils 68 % (50-85); Total Cells Counted 100
[2021-03-09 09:13] LABS: Atypical Lymphocytes Few; Platelet Estimate Adequate
[2021-03-09] MEDS: SODIUM CHLORIDE 0.45% 1,000 ML IV SCH (10:37)
[2021-03-09] MEDS: HEPARIN 10,000 UNIT/10 ML VIAL IV PRN (13:11)
[2021-03-10] MEDS: ALBUTEROL/IPRATROPIUM 3 ML NEB RESP TX SCH ×4 (00:17→19:49)
[2021-03-10] MEDS: ACETAMINOPHEN 325 MG TABLET PO PRN (02:38)
[2021-03-10 05:25] LABS: Basophils % 0.9 % (0.0-0.8); Eosinophils # 0.3 10*3/uL (0.0-0.87); Eosinophils % 5.8 % (0.00-10.9); Hematocrit 22.1 VOL% (42.0-52.0); Hemoglobin 6.7 GM/DL (14.0-18.0); Immature Granulocytes % 0.9 %; Immature Granulocytes Absolute 0.04 #; Lymphocytes # 0.9 10*3/uL (1.4-4.0); Lymphocytes % 21.7 % (21.2-54.2); Mean Corpuscular HGB Conc 30.3 GM/DL (32-36); Mean Corpuscular Volume 92.1 FL (87-102); Mean Platelet Volume 10.7 FL (9.6-12.0); Monocytes % 11.2 % (1.7-12.7); Neutrophils % 59.5 % (38.7-73.9); Platelet Count 131 T/CUMM (130-400); Red Cell Distribution Width 14.6 % (9.3-17.3); White Blood Count 4.3 T/CUMM (4-12)
[2021-03-10 05:48] LABS: Osmolality,Calculated 284.1 MOS/KG (273-304); Potassium 3.9 MMOL/L (3.5-5.1)
[2021-03-10] MEDS ORDERED: SODIUM CHLORIDE 0.9% 1,000 ML IV PRN (07:52)
[2021-03-10] MEDS: SODIUM CHLORIDE 0.45% 1,000 ML IV SCH (08:21)
[2021-03-10] MEDS: CINACALCET 30 MG TABLET PO SCH (08:28)
[2021-03-10] MEDS: carvediloL 12.5 MG TABLET PO SCH ×2 (08:28→16:48)
[2021-03-10] MEDS: levETIRAcetam 250 MG TABLET PO SCH ×2 (08:28→21:24)
[2021-03-10] MEDS: HEPARIN 10,000 UNIT/10 ML VIAL IV PRN (09:11)
[2021-03-10] MEDS ORDERED: ceFAZolin 2,000 MG/50 ML DUPLEX IV SCH (17:00)
[2021-03-10] MEDS: HEPARIN LOCK FLUSH 500 UNIT/5 ML SYRINGE IV PRN (17:35)
[2021-03-11] MEDS: ALBUTEROL/IPRATROPIUM 3 ML NEB RESP TX SCH ×3 (01:00→12:55)
[2021-03-11 06:22] LABS: Basophils % 0.9 % (0.0-0.8); Eosinophils # 0.2 10*3/uL (0.0-0.87); Eosinophils % 3.7 % (0.00-10.9); Hematocrit 25.2 VOL% (42.0-52.0); Hemoglobin 7.6 GM/DL (14.0-18.0); Immature Granulocytes % 0.7 %; Immature Granulocytes Absolute 0.03 #; Lymphocytes # 0.7 10*3/uL (1.4-4.0); Lymphocytes % 15.9 % (21.2-54.2); Mean Corpuscular HGB Conc 30.2 GM/DL (32-36); Mean Corpuscular Volume 91.3 FL (87-102); Mean Platelet Volume 10.2 FL (9.6-12.0); Monocytes % 13.4 % (1.7-12.7); Neutrophils % 65.4 % (38.7-73.9); Platelet Count 137 T/CUMM (130-400); Red Blood Count 2.76 MC/CUMM (3.8-5.5); White Blood Count 4.5 T/CUMM (4-12)
[2021-03-11 06:40] LABS: Calcium 8.4 MG/DL (8.5-10.1); Potassium 3.7 MMOL/L (3.5-5.1)
[2021-03-11] MEDS ORDERED: diphenhydrAMINE CAP 25 MG CAPSULE PO PRN (08:10)
[2021-03-11] MEDS: levETIRAcetam 250 MG TABLET PO SCH (09:01)
[2021-03-11] MEDS: CINACALCET 30 MG TABLET PO SCH (09:01)
[2021-03-11] MEDS: carvediloL 12.5 MG TABLET PO SCH (09:01)
[2021-03-11 12:20] VITALS: BP 130/85
== END 2021-03-11 14:48 | disposition home or self-care (01) | DRG 314 ==
LOC: EDUNIT# → EDBD → N.ED 15:16 → SUATTDRO 18:18 → N.EDINP 18:18 → N.TELEN 02-27 17:00
PROVIDERS: ADMIT Internal Medicine; ATTEND Hospitalist

== ENCOUNTER 2021-07-21 17:24 | Inpatient (IN) ==
[2021-07-21] MEDS ORDERED: SODIUM CHLORIDE 0.9% 500 ML IV STA (19:27)
[2021-07-21] MEDS ORDERED: PIPERACILLIN/TAZOBACTAM 3,375 MG in SODIUM CHLORIDE 0.9% 100 ML IV STA (19:27)
[2021-07-21 20:04] LABS: Basophils % 0.3 % (0.0-0.8); Eosinophils % 0.1 % (0.00-10.9); Hematocrit 31.3 VOL% (42.0-52.0); Hemoglobin 10.2 GM/DL (14.0-18.0); Immature Granulocytes % 0.7 %; Immature Granulocytes Absolute 0.06 #; Lymphocytes # 0.6 10*3/uL (1.4-4.0); Lymphocytes % 6.9 % (21.2-54.2); Mean Corpuscular HGB Conc 32.6 GM/DL (32-36); Mean Corpuscular Volume 85.8 FL (87-102); Mean Platelet Volume 10.9 FL (9.6-12.0); Monocytes # 0.9 10*3/uL (0.11-0.8); Monocytes % 10.2 % (1.7-12.7); Neutrophils % 81.8 % (38.7-73.9); Platelet Count 152 T/CUMM (130-400); Red Blood Count 3.65 MC/CUMM (3.8-5.5); Red Cell Distribution Width 15.9 % (9.3-17.3); White Blood Count 9.2 T/CUMM (4-12)
[2021-07-21 20:18] LABS: Albumin 2.5 G/DL (3.4-5.0); Bilirubin,Total 0.4 MG/DL (0.20-1.00); Calcium 9.6 MG/DL (8.5-10.1); Osmolality,Calculated 280.7 MOS/KG (273-304); Potassium 3.9 MMOL/L (3.5-5.1); Total Protein 8.8 G/DL (6.4-8.2)
[2021-07-21 20:49] LABS: INR 1.2; Partial Thromboplastin Time 40.7 SECS (23.8-32.1)
[2021-07-21] MEDS ORDERED: ONDANSETRON 4 MG/2 ML VIAL IV PRN (23:29)
[2021-07-21] MEDS ORDERED: ENOXAPARIN 30 MG/0.3 ML SYRINGE SUBCUT SCH (23:30)
[2021-07-22] MEDS ORDERED: VANCOMYCIN INJ 2,000 MG in SODIUM CHLORIDE 0.9% 500 ML IV ONE (02:00)
[2021-07-22 07:12] LABS: Basophils % 0.5 % (0.0-0.8); Eosinophils # 0.1 10*3/uL (0.0-0.87); Eosinophils % 0.7 % (0.00-10.9); Hemoglobin 9.7 GM/DL (14.0-18.0); Immature Granulocytes % 0.6 %; Immature Granulocytes Absolute 0.05 #; Lymphocytes % 12.5 % (21.2-54.2); Mean Corpuscular HGB Conc 31.3 GM/DL (32-36); Mean Corpuscular Volume 88.3 FL (87-102); Mean Platelet Volume 11.9 FL (9.6-12.0); Monocytes # 1.3 10*3/uL (0.11-0.8); Monocytes % 15.4 % (1.7-12.7); Neutrophils % 70.3 % (38.7-73.9); Platelet Count 128 T/CUMM (130-400); Red Blood Count 3.51 MC/CUMM (3.8-5.5); Red Cell Distribution Width 16.1 % (9.3-17.3); White Blood Count 8.3 T/CUMM (4-12)
[2021-07-22 08:32] LABS: Albumin 2.2 G/DL (3.4-5.0); Bilirubin,Total 0.4 MG/DL (0.20-1.00); Calcium 9.6 MG/DL (8.5-10.1); Osmolality,Calculated 287.7 MOS/KG (273-304); Potassium 4.1 MMOL/L (3.5-5.1); Total Protein 7.7 G/DL (6.4-8.2)
[2021-07-22] MEDS ORDERED: carvediloL 12.5 MG TABLET PO SCH (09:00)
[2021-07-22] MEDS: PIPERACILLIN/TAZOBACTAM 3,375 MG in SODIUM CHLORIDE 0.9% 100 ML IV SCH ×2 (09:09→20:35)
[2021-07-22] MEDS: PANTOPRAZOLE 40 MG TABLET PO SCH (09:09)
[2021-07-22] MEDS: levETIRAcetam 250 MG TABLET PO SCH ×2 (09:11→20:35)
[2021-07-22] MEDS: CINACALCET 30 MG TABLET PO SCH (09:12)
[2021-07-22] MEDS ORDERED: SUCROFERRIC OXYHYDROXIDE 500 MG PO SCH (12:00)
[2021-07-22] MEDS: carvediloL 12.5 MG TABLET PO SCH (16:13)
[2021-07-22] MEDS: ACETAMINOPHEN 325 MG TABLET PO PRN (16:13)
[2021-07-22] MEDS: WARFARIN 5 MG TABLET PO SCH (20:35)
[2021-07-23] MEDS: ACETAMINOPHEN 325 MG TABLET PO PRN (03:18)
[2021-07-23 04:50] LABS: Basophils % 0.7 % (0.0-0.8); Eosinophils # 0.1 10*3/uL (0.0-0.87); Eosinophils % 1.5 % (0.00-10.9); Hematocrit 28.1 VOL% (42.0-52.0); Hemoglobin 8.6 GM/DL (14.0-18.0); Immature Granulocytes % 0.8 %; Immature Granulocytes Absolute 0.05 #; Lymphocytes # 0.6 10*3/uL (1.4-4.0); Lymphocytes % 10.1 % (21.2-54.2); Mean Corpuscular HGB Conc 30.6 GM/DL (32-36); Mean Corpuscular Volume 87.8 FL (87-102); Mean Platelet Volume 10.4 FL (9.6-12.0); Monocytes % 15.5 % (1.7-12.7); Neutrophils % 71.4 % (38.7-73.9); Platelet Count 138 T/CUMM (130-400); Red Cell Distribution Width 15.7 % (9.3-17.3); White Blood Count 6.1 T/CUMM (4-12)
[2021-07-23 05:05] LABS: INR 1.3
[2021-07-23 05:07] LABS: Calcium 9.3 MG/DL (8.5-10.1); Osmolality,Calculated 288.1 MOS/KG (273-304); Potassium 3.6 MMOL/L (3.5-5.1)
[2021-07-23] MEDS: PANTOPRAZOLE 40 MG TABLET PO SCH (09:03)
[2021-07-23] MEDS: carvediloL 12.5 MG TABLET PO SCH ×2 (09:03→16:53)
[2021-07-23] MEDS: CINACALCET 30 MG TABLET PO SCH (09:03)
[2021-07-23] MEDS: levETIRAcetam 250 MG TABLET PO SCH ×2 (09:03→20:40)
[2021-07-23] MEDS: PIPERACILLIN/TAZOBACTAM 3,375 MG in SODIUM CHLORIDE 0.9% 100 ML IV SCH ×2 (11:37→23:10)
[2021-07-23] MEDS ORDERED: HEPARIN 10,000 UNIT/10 ML VIAL IV SCH (13:45)
[2021-07-23] MEDS: hydrALAZINE 20 MG/1 ML VIAL IV PRN (14:49)
[2021-07-23 15:58] LABS: Hematocrit 31.1 VOL% (42.0-52.0); Hemoglobin 9.8 GM/DL (14.0-18.0)
[2021-07-23] MEDS ORDERED: VANCOMYCIN INJ 750 MG in SODIUM CHLORIDE 0.9% 250 ML IV PRN (17:00)
[2021-07-23] MEDS ORDERED: VANCOMYCIN INJ 750 MG in SODIUM CHLORIDE 0.9% 250 ML IV ONE (17:00)
[2021-07-23] MEDS: PANTOPRAZOLE 40 MG VIAL IV SCH (20:43)
[2021-07-24 00:22] LABS: Hematocrit 26.6 VOL% (42.0-52.0); Hemoglobin 8.6 GM/DL (14.0-18.0)
[2021-07-24] MEDS: PIPERACILLIN/TAZOBACTAM 3,375 MG in SODIUM CHLORIDE 0.9% 100 ML IV SCH ×2 (01:34→09:05)
[2021-07-24] MEDS: hydrALAZINE 20 MG/1 ML VIAL IV PRN (01:35)
[2021-07-24 04:56] LABS: Basophils % 0.5 % (0.0-0.8); Eosinophils % 0.3 % (0.00-10.9); Hematocrit 27.3 VOL% (42.0-52.0); Hemoglobin 8.7 GM/DL (14.0-18.0); Immature Granulocytes % 1.7 %; Immature Granulocytes Absolute 0.13 #; Lymphocytes # 0.5 10*3/uL (1.4-4.0); Lymphocytes % 6.8 % (21.2-54.2); Mean Corpuscular HGB Conc 31.9 GM/DL (32-36); Mean Corpuscular Volume 87.2 FL (87-102); Mean Platelet Volume 10.8 FL (9.6-12.0); Monocytes # 1.2 10*3/uL (0.11-0.8); Monocytes % 16.2 % (1.7-12.7); Neutrophils % 74.5 % (38.7-73.9); Platelet Count 212 T/CUMM (130-400); Red Blood Count 3.13 MC/CUMM (3.8-5.5); Red Cell Distribution Width 15.5 % (9.3-17.3); White Blood Count 7.5 T/CUMM (4-12)
[2021-07-24 05:10] LABS: Calcium 9.6 MG/DL (8.5-10.1); Osmolality,Calculated 284.5 MOS/KG (273-304)
[2021-07-24 05:20] LABS: Band Neutrophils 1 % (0-10); Eosinophils 1 % (0-10); Lymphocytes 5 % (20-55); Platelet Estimate Adequate; Total Cells Counted 100
[2021-07-24 05:21] LABS: INR 1.3; PT Patient Result 14.3 SECS (10.5-12.0)
[2021-07-24 06:54] LABS: Hematocrit 27.5 VOL% (42.0-52.0); Hemoglobin 8.7 GM/DL (14.0-18.0)
[2021-07-24] MEDS: levETIRAcetam 250 MG TABLET PO SCH ×2 (09:06→20:26)
[2021-07-24] MEDS: PANTOPRAZOLE 40 MG VIAL IV SCH ×2 (09:06→20:26)
[2021-07-24] MEDS: CINACALCET 30 MG TABLET PO SCH (09:06)
[2021-07-24] MEDS: carvediloL 12.5 MG TABLET PO SCH ×2 (09:06→18:09)
[2021-07-24] MEDS ORDERED: ceFAZolin 2,000 MG/50 ML DUPLEX IV ONE (14:00)
[2021-07-24 17:10] LABS: Hematocrit 27.4 VOL% (42.0-52.0); Hemoglobin 8.6 GM/DL (14.0-18.0)
[2021-07-25 05:47] LABS: Basophils % 0.5 % (0.0-0.8); Eosinophils # 0.1 10*3/uL (0.0-0.87); Eosinophils % 2.4 % (0.00-10.9); Immature Granulocytes % 1.4 %; Immature Granulocytes Absolute 0.08 #; Lymphocytes # 0.6 10*3/uL (1.4-4.0); Lymphocytes % 9.9 % (21.2-54.2); Mean Platelet Volume 10.3 FL (9.6-12.0); Neutrophils % 67.8 % (38.7-73.9); Platelet Count 192 T/CUMM (130-400); Red Blood Count 2.84 MC/CUMM (3.8-5.5); Red Cell Distribution Width 15.5 % (9.3-17.3); White Blood Count 5.7 T/CUMM (4-12)
[2021-07-25 06:07] LABS: Calcium 9.2 MG/DL (8.5-10.1); Osmolality,Calculated 289.5 MOS/KG (273-304); Potassium 3.9 MMOL/L (3.5-5.1)
[2021-07-25 06:10] LABS: Eosinophils 1 % (0-10); Lymphocytes 9 % (20-55); Platelet Estimate Normal; Total Cells Counted 100
[2021-07-25 06:17] LABS: INR 1.3
[2021-07-25] MEDS: PANTOPRAZOLE 40 MG VIAL IV SCH ×2 (12:23→20:57)
[2021-07-25] MEDS: carvediloL 12.5 MG TABLET PO SCH ×2 (12:24→16:48)
[2021-07-25] MEDS: CINACALCET 30 MG TABLET PO SCH (12:24)
[2021-07-25] MEDS: levETIRAcetam 250 MG TABLET PO SCH ×2 (12:24→20:57)
[2021-07-25] MEDS ORDERED: ceFAZolin 2,000 MG/50 ML DUPLEX IV SCH (17:00)
[2021-07-26 05:01] LABS: Basophils % 0.4 % (0.0-0.8); Eosinophils # 0.1 10*3/uL (0.0-0.87); Eosinophils % 2.8 % (0.00-10.9); Hematocrit 25.5 VOL% (42.0-52.0); Hemoglobin 7.8 GM/DL (14.0-18.0); Immature Granulocytes % 1.4 %; Immature Granulocytes Absolute 0.07 #; Lymphocytes # 0.7 10*3/uL (1.4-4.0); Mean Corpuscular HGB Conc 30.6 GM/DL (32-36); Mean Corpuscular Volume 89.2 FL (87-102); Mean Platelet Volume 10.4 FL (9.6-12.0); Monocytes # 0.9 10*3/uL (0.11-0.8); Monocytes % 18.3 % (1.7-12.7); Neutrophils % 64.1 % (38.7-73.9); Platelet Count 194 T/CUMM (130-400); Red Blood Count 2.86 MC/CUMM (3.8-5.5); Red Cell Distribution Width 15.1 % (9.3-17.3); White Blood Count 5.1 T/CUMM (4-12)
[2021-07-26 05:17] LABS: Calcium 8.8 MG/DL (8.5-10.1); Osmolality,Calculated 281.1 MOS/KG (273-304); Potassium 3.6 MMOL/L (3.5-5.1)
[2021-07-26 05:27] LABS: Eosinophils 2 % (0-10); Hypochromia Slight; Lymphocytes 11 % (20-55); Platelet Estimate Normal; Total Cells Counted 100
[2021-07-26] MEDS: carvediloL 12.5 MG TABLET PO SCH ×2 (08:19→16:59)
[2021-07-26] MEDS: levETIRAcetam 250 MG TABLET PO SCH ×2 (08:19→20:42)
[2021-07-26] MEDS: PANTOPRAZOLE 40 MG VIAL IV SCH ×2 (08:19→20:42)
[2021-07-26] MEDS: CINACALCET 30 MG TABLET PO SCH (08:19)
[2021-07-26] MEDS: ACETAMINOPHEN 325 MG TABLET PO PRN (23:00)
[2021-07-27] MEDS: hydrALAZINE 20 MG/1 ML VIAL IV PRN (00:05)
[2021-07-27 05:04] LABS: Basophils % 0.8 % (0.0-0.8); Eosinophils # 0.2 10*3/uL (0.0-0.87); Eosinophils % 3.4 % (0.00-10.9); Hematocrit 25.4 VOL% (42.0-52.0); Hemoglobin 7.9 GM/DL (14.0-18.0); Immature Granulocytes % 1.1 %; Immature Granulocytes Absolute 0.05 #; Lymphocytes # 0.9 10*3/uL (1.4-4.0); Lymphocytes % 18.2 % (21.2-54.2); Mean Corpuscular HGB Conc 31.1 GM/DL (32-36); Mean Corpuscular Volume 89.1 FL (87-102); Mean Platelet Volume 10.1 FL (9.6-12.0); Monocytes # 0.7 10*3/uL (0.11-0.8); Monocytes % 14.2 % (1.7-12.7); Neutrophils % 62.3 % (38.7-73.9); Platelet Count 244 T/CUMM (130-400); Red Blood Count 2.85 MC/CUMM (3.8-5.5); Red Cell Distribution Width 14.6 % (9.3-17.3); White Blood Count 4.7 T/CUMM (4-12)
[2021-07-27] MEDS: ACETAMINOPHEN 325 MG TABLET PO PRN ×3 (07:50→21:07)
[2021-07-27] MEDS: levETIRAcetam 250 MG TABLET PO SCH ×2 (09:06→21:07)
[2021-07-27] MEDS: carvediloL 12.5 MG TABLET PO SCH ×2 (09:06→16:50)
[2021-07-27] MEDS: CINACALCET 30 MG TABLET PO SCH (09:06)
[2021-07-27] MEDS: PANTOPRAZOLE 40 MG VIAL IV SCH ×2 (09:07→21:07)
[2021-07-28 04:56] LABS: Basophils % 0.8 % (0.0-0.8); Eosinophils # 0.2 10*3/uL (0.0-0.87); Eosinophils % 3.8 % (0.00-10.9); Hematocrit 24.5 VOL% (42.0-52.0); Hemoglobin 7.7 GM/DL (14.0-18.0); Immature Granulocytes % 1.2 %; Immature Granulocytes Absolute 0.06 #; Lymphocytes # 0.7 10*3/uL (1.4-4.0); Lymphocytes % 14.2 % (21.2-54.2); Mean Corpuscular HGB Conc 31.4 GM/DL (32-36); Mean Corpuscular Volume 88.1 FL (87-102); Mean Platelet Volume 9.8 FL (9.6-12.0); Monocytes # 0.7 10*3/uL (0.11-0.8); Monocytes % 12.7 % (1.7-12.7); Neutrophils % 67.3 % (38.7-73.9); Platelet Count 221 T/CUMM (130-400); Red Blood Count 2.78 MC/CUMM (3.8-5.5); Red Cell Distribution Width 14.5 % (9.3-17.3); White Blood Count 5.2 T/CUMM (4-12)
[2021-07-28 05:18] LABS: Calcium 8.5 MG/DL (8.5-10.1); Osmolality,Calculated 277.8 MOS/KG (273-304); Potassium 3.8 MMOL/L (3.5-5.1)
[2021-07-28] MEDS: PANTOPRAZOLE 40 MG VIAL IV SCH ×2 (09:03→21:04)
[2021-07-28] MEDS: levETIRAcetam 250 MG TABLET PO SCH ×2 (09:04→21:04)
[2021-07-28] MEDS: ACETAMINOPHEN 325 MG TABLET PO PRN ×2 (09:04→21:04)
[2021-07-28] MEDS: CINACALCET 30 MG TABLET PO SCH (09:04)
[2021-07-28] MEDS: carvediloL 12.5 MG TABLET PO SCH ×2 (09:04→16:53)
[2021-07-28] MEDS ORDERED: FUROSEMIDE 40 MG/4 ML VIAL ONE (11:31)
[2021-07-28] MEDS: SODIUM CHLORIDE 0.9% 500 ML IV SCH (12:39)
[2021-07-28] MEDS ORDERED: LIDOCAINE 2% 5 ML VIAL ONE (12:39)
[2021-07-28] MEDS ORDERED: propofoL 200 MG/20 ML VIAL IV ONE (12:39)
[2021-07-28] MEDS ORDERED: ceFAZolin 2,000 MG/50 ML DUPLEX IV SCH (17:00)
[2021-07-29 05:18] LABS: Basophils % 0.4 % (0.0-0.8); Eosinophils # 0.1 10*3/uL (0.0-0.87); Hematocrit 24.1 VOL% (42.0-52.0); Hemoglobin 7.4 GM/DL (14.0-18.0); Immature Granulocytes % 0.9 %; Immature Granulocytes Absolute 0.04 #; Lymphocytes # 0.7 10*3/uL (1.4-4.0); Lymphocytes % 14.7 % (21.2-54.2); Mean Corpuscular HGB Conc 30.7 GM/DL (32-36); Mean Corpuscular Volume 88.6 FL (87-102); Mean Platelet Volume 9.8 FL (9.6-12.0); Monocytes # 0.7 10*3/uL (0.11-0.8); Monocytes % 15.6 % (1.7-12.7); Neutrophils % 66.4 % (38.7-73.9); Platelet Count 210 T/CUMM (130-400); Red Blood Count 2.72 MC/CUMM (3.8-5.5); Red Cell Distribution Width 14.5 % (9.3-17.3); White Blood Count 4.5 T/CUMM (4-12)
[2021-07-29 05:33] LABS: Calcium 8.8 MG/DL (8.5-10.1); Osmolality,Calculated 270.7 MOS/KG (273-304); Potassium 3.6 MMOL/L (3.5-5.1)
[2021-07-29] MEDS ORDERED: LIDOCAINE 2% 5 ML VIAL ONE (08:51)
[2021-07-29] MEDS ORDERED: propofoL 200 MG/20 ML VIAL IV ONE (08:51)
[2021-07-29] MEDS ORDERED: ETOMIDATE 20 MG/10 ML VIAL IV ONE (08:51)
[2021-07-29] MEDS ORDERED: SODIUM CHLORIDE 0.9% 1,000 ML IV SCH (10:00)
[2021-07-29] MEDS: levETIRAcetam 250 MG TABLET PO SCH ×2 (10:41→21:12)
[2021-07-29] MEDS: CINACALCET 30 MG TABLET PO SCH (10:41)
[2021-07-29] MEDS: carvediloL 12.5 MG TABLET PO SCH ×2 (10:41→17:58)
[2021-07-29] MEDS: PANTOPRAZOLE 40 MG VIAL IV SCH ×2 (10:43→21:13)
[2021-07-29] MEDS: ACETAMINOPHEN 325 MG TABLET PO PRN (10:46)
[2021-07-29] MEDS ORDERED: SODIUM CHLORIDE 0.9% 1,000 ML IV PRN (14:47)
[2021-07-29] MEDS: SODIUM CHLORIDE 0.9% 500 ML IV SCH (15:26)
[2021-07-29] MEDS: WARFARIN 5 MG TABLET PO SCH (21:12)
[2021-07-30] MEDS: ACETAMINOPHEN 325 MG TABLET PO PRN ×2 (01:02→09:28)
[2021-07-30 06:09] LABS: Basophils % 0.5 % (0.0-0.8); Eosinophils # 0.1 10*3/uL (0.0-0.87); Eosinophils % 2.2 % (0.00-10.9); Hematocrit 23.3 VOL% (42.0-52.0); Hemoglobin 7.2 GM/DL (14.0-18.0); Immature Granulocytes % 0.7 %; Immature Granulocytes Absolute 0.04 #; Lymphocytes # 0.7 10*3/uL (1.4-4.0); Lymphocytes % 12.6 % (21.2-54.2); Mean Corpuscular HGB Conc 30.9 GM/DL (32-36); Mean Corpuscular Volume 89.6 FL (87-102); Mean Platelet Volume 10.4 FL (9.6-12.0); Monocytes # 0.7 10*3/uL (0.11-0.8); Monocytes % 13.1 % (1.7-12.7); Neutrophils % 70.9 % (38.7-73.9); Platelet Count 219 T/CUMM (130-400); Red Cell Distribution Width 14.5 % (9.3-17.3); White Blood Count 5.6 T/CUMM (4-12)
[2021-07-30 06:31] LABS: Calcium 8.4 MG/DL (8.5-10.1); Osmolality,Calculated 277.4 MOS/KG (273-304); Potassium 3.8 MMOL/L (3.5-5.1)
[2021-07-30 08:31] VITALS: BP 146/86
[2021-07-30] MEDS: CINACALCET 30 MG TABLET PO SCH (09:28)
[2021-07-30] MEDS: PANTOPRAZOLE 40 MG VIAL IV SCH (09:28)
[2021-07-30] MEDS: levETIRAcetam 250 MG TABLET PO SCH (09:29)
[2021-07-30] MEDS: carvediloL 12.5 MG TABLET PO SCH (09:29)
== END 2021-07-30 16:02 | disposition home health service (06) | DRG 288 ==
LOC: EDUNIT# → EDBD → N.EDINP 17:24 → N.ED 17:24 → SUATTDRO 23:59 → N.EDINP 07-22 03:00 → N.TELES 07-22 03:32 → SUATTDRO 07-23 13:38
PROVIDERS: ADMIT Internal Medicine; ATTEND Internal Medicine Geriatric Medicine